=== PATIENT | female | born 1960 | race Caucasian/White ===

== ENCOUNTER 2020-03-13 07:48 | Outpatient (REF) | payer OTHER, SELFPAY ==
--- NOTE | 2020-03-13 08:04 | MM_ITS ---
EXAMINATION: MM SCREENING DIGITAL BREAST TOMOSYNTHESIS, LEFT CLINICAL INFORMATION: Right mastectomy for breast cancer 2013. Left breast augmentation 07/07/2014. Due for yearly exam. Screening. Asymptomatic. COMPARISON: Mammography: 08/12/2018, 07/24/2017, 07/09/2016 TECHNIQUE: Digital mammography is performed in craniocaudal and mediolateral oblique views along with computer-aided detection (CAD). Digital breast tomosynthesis is performed in implant-displaced craniocaudal and implant-displaced mediolateral oblique views along with computer-aided detection (CAD). Synthesized 2D images are generated from the tomosynthesis. FINDINGS: There are scattered areas of fibroglandular density (ACR BI-RADS breast composition Category b). There are no significant masses, abnormal calcifications, or other abnormalities. There is an implant with smooth contours. The axilla and skin contours are unremarkable. No significant changes. MM/MM tomosynthesis screen imp LT IMPRESSION: No mammographic evidence of malignancy. ASSESSMENT: BI-RADS 1: Negative RECOMMENDATION: Routine annual mammography screening. This patient's information was entered into a reminder system with a target due date for their next mammogram.
== END 2020-03-13 07:49 | disposition home or self-care (01) ==
LOC: HO.MAMMO 07:48
PROVIDERS: PCP Nurse Practitioner Family; Visit Provider Nurse Practitioner Family
DX: Z12.31 Encounter for screening mammogram for malignant neoplasm of breast (principal)
CPT/HCPCS: 77067

== ENCOUNTER 2020-06-01 06:44 | Outpatient (REF) | payer OTHER, SELFPAY ==
[2020-06-01 12:12] LABS: Alanine Aminotransferase 11 U/L (0-31); Albumin Level 4.4 g/dL (3.5-5.0); Alkaline Phosphatase 49 U/L (39-117); Anion Gap 15 (12-20); Aspartate Amino Transferase 12 U/L (5-31); Bilirubin Total 0.6 mg/dL (0.0-1.0); Blood Urea Nitrogen 20 mg/dL (9-16); Calcium 9.2 mg/dL (8.4-10.2); Carbon Dioxide 28 mmol/L (22-29); Chloride 105 mmol/L (96-108); Cholesterol 175 mg/dL; Estimated Glomerular Filt Rate > 60; Glucose Fasting 91 mg/dL (60-99); HDL Cholesterol 56 mg/dL; LDL Cholesterol Calculated 107 mg/dl; Potassium 4.5 mmol/L (3.3-5.1); Sodium 143 mmol/L (135-145); TSH reflex Free T4 5.74 uIU/mL (0.32-4.0); Triglycerides 60 mg/dL
[2020-06-01 12:46] LABS: Free T4 (Free Thyroxine) 1.01 ng/dL (0.71-1.85)
== END 2020-06-01 06:45 | disposition home or self-care (01) ==
LOC: HO.HMGCLDS 06:44
PROVIDERS: PCP Nurse Practitioner Family; Visit Provider Nurse Practitioner Family
DX: Z00.00 Encounter for general adult medical examination without abnormal findings (principal)
CPT/HCPCS: 36415; 80053; 80061; 84439; 84443

== ENCOUNTER 2020-06-11 10:05 | Outpatient (REF) | payer OTHER, SELFPAY ==
[2020-06-11 12:10] LABS: TSH reflex Free T4 2.86 uIU/mL (0.32-4.0)
[2020-06-12 08:21] LABS: Thyroid Peroxidase Antibodies 5 IU/mL (<9)
== END 2020-06-11 10:06 | disposition home or self-care (01) ==
LOC: HO.HMGCLDS 10:05
PROVIDERS: PCP Nurse Practitioner Family; Visit Provider Nurse Practitioner Family
DX: R79.89 Other specified abnormal findings of blood chemistry (principal)
CPT/HCPCS: 36415; 84443; 86376

== ENCOUNTER 2021-03-26 08:58 | Outpatient (REF) | payer OTHER, SELFPAY ==
--- NOTE | ~2021-03-26 | MM_ITS ---
EXAMINATION: MM SCREENING DIGITAL BREAST TOMOSYNTHESIS, LEFT CLINICAL INFORMATION: Right mastectomy for breast cancer, 2013. Augmentation left breast 07/07/2014. Due for yearly. COMPARISON: Mammography: 03/13/2020, 08/12/2018, 07/24/2017 TECHNIQUE: Digital mammography is performed in craniocaudal and mediolateral oblique views along with computer-aided detection (CAD). Digital breast tomosynthesis is performed in implant-displaced craniocaudal and implant-displaced mediolateral oblique views along with computer-aided detection (CAD). Synthesized 2D images are generated from the tomosynthesis. FINDINGS: There are scattered areas of fibroglandular density (ACR BI-RADS breast composition Category b). There is no significant mass or architectural abnormality. No developing density. No abnormal calcifications. The skin contours are smooth. Left implant contours are smooth and similar to prior studies. No significant changes. MM/MM tomosynthesis screen imp LT IMPRESSION: No mammographic evidence of malignancy. ASSESSMENT: BI-RADS 1: Negative RECOMMENDATION: Routine annual mammography screening. This patient's information was entered into a reminder system with a target due date for their next mammogram.
== END 2021-03-26 08:59 | disposition home or self-care (01) ==
LOC: HO.MAMMO 08:58
PROVIDERS: Visit Provider Nurse Practitioner Family
DX: Z12.31 Encounter for screening mammogram for malignant neoplasm of breast (principal); Z90.11 Acquired absence of right breast and nipple
CPT/HCPCS: 77067

== ENCOUNTER 2021-10-28 08:56 | Outpatient (REF) | payer OTHER, SELFPAY ==
[2021-10-28 11:16] LABS: MANUAL DIFF FLAG NO
[2021-10-28 11:26] LABS: Basophils Absolute Auto 0.1 X10*3/uL (0.0-0.2); Basophils Percent Auto 1.1 % (0-2); Eosinophils Absolute Auto 0.1 X10*3/uL (0.0-0.4); Eosinophils Percent Auto 1.7 % (0-4); Hemoglobin 12.8 g/dl (12.0-16.0); Imm Gran Abs Auto 0.01 X10*3/uL (0.00-0.03); Imm Gran Pct Auto 0.2 % (0.0-0.4); Lymphocytes Absolute Auto 0.9 X10*3/uL (1.2-4.9); Lymphocytes Percent Auto 18.5 % (20-40); Mean Corpuscular Hemoglobin 30.2 pg (27.0-33.0); Mean Corpuscular Volume 94.3 fL (80.0-98.0); Monocytes Absolute Auto 0.4 X10*3/uL (0.1-1.2); Monocytes Percent Auto 7.5 % (2-11); Neutrophils Absolute Auto 3.3 x10*3/uL (2.0-8.3); Platelet Count 192 X10*3/uL (160-400); Red Blood Count 4.24 X10*6/uL (4.20-5.50); Red Cell Distribution Width 12.8 % (11.0-16.0); White Blood Count 4.7 X10*3/uL (4.8-10.8)
[2021-10-28 11:31] LABS: Appearance Urine CLEAR; Color Urine YELLOW; Glucose Urine UA NEG (NEG); Leukocyte Esterase Urine 1+ (NEG); Nitrite Urine NEG (NEG); PH 5.5 (5.0-8.0); Specific Gravity - Urine 1.025 (1.005-1.025); UACC Culture Trigger YES; Urine Blood 1+ (NEG); Urine Ketones NEG (NEG); Urine Protein NEG (NEG-TRACE)
[2021-10-28 11:51] LABS: Alanine Aminotransferase 12 U/L (0-31); Albumin Level 4.5 g/dL (3.5-5.0); Alkaline Phosphatase 51 U/L (39-117); Anion Gap 11 (12-20); Aspartate Amino Transferase 14 U/L (5-31); Bilirubin Total 0.6 mg/dL (0.0-1.0); Blood Urea Nitrogen 19 mg/dL (9-16); Calcium 9.3 mg/dL (8.4-10.2); Carbon Dioxide 27 mmol/L (22-29); Chloride 105 mmol/L (96-108); Cholesterol 176 mg/dL; Estimated Glomerular Filt Rate > 60; Glucose Fasting 87 mg/dL (60-99); HDL Cholesterol 58 mg/dL; LDL Cholesterol Calculated 110 mg/dl; Potassium 4.1 mmol/L (3.3-5.1); Sodium 139 mmol/L (135-145); Total Protein 7.1 g/dL (6.5-8.0); Triglycerides 43 mg/dL
[2021-10-28 11:52] LABS: Bacteria Urine 3+ /LPF; Squamous Epithelial Cell Urine 2+ /LPF
[2021-10-28 11:53] LABS: RBC Urine 0-2 /HPF (0)
[2021-10-28 12:01] LABS: TSH reflex Free T4 2.76 uIU/mL (0.32-4.0); Vitamin D 25-OH Total 31.2 ng/mL (>30)
== END 2021-10-28 08:57 | disposition home or self-care (01) ==
LOC: HO.HMGCLDS 08:56
PROVIDERS: Visit Provider Nurse Practitioner Family
DX: Z00.00 Encounter for general adult medical examination without abnormal findings (principal); Z78.0 Asymptomatic menopausal state
CPT/HCPCS: 36415; 80053; 80061; 81001; 82306; 84443; 85025; 87086

== ENCOUNTER 2022-03-31 15:37 | Outpatient (REF) | payer OTHER, SELFPAY ==
--- NOTE | ~2022-03-31 | MM_ITS ---
EXAMINATION: MM SCREENING DIGITAL BREAST TOMOSYNTHESIS, LEFT CLINICAL INFORMATION: Right mastectomy for breast cancer, 2013. Left breast augmentation 07/07/2014. Due for yearly. COMPARISON: Mammography: 03/26/2021, 03/13/2020, 08/12/2018 TECHNIQUE: Digital mammography is performed in craniocaudal and mediolateral oblique views along with computer-aided detection (CAD). Digital breast tomosynthesis is performed in implant-displaced craniocaudal and implant-displaced mediolateral oblique views along with computer-aided detection (CAD). Synthesized 2D images are generated from the tomosynthesis. FINDINGS: There are scattered areas of fibroglandular density (ACR BI-RADS breast composition Category b). There is fine fibronodular parenchymal pattern bordering on heterogeneously dense. Parenchymal pattern is similar to prior studies. There is no developing density or interval mass or architectural abnormality. There are no abnormal calcifications. Implant contours are smooth and similar to prior study. The axilla and skin contours are unremarkable. No significant changes. MM/MM tomosynthesis screen imp LT IMPRESSION: No mammographic evidence of malignancy. ASSESSMENT: BI-RADS 1: Negative RECOMMENDATION: Routine annual mammography screening. This patient's information was entered into a reminder system with a target due date for their next mammogram.
== END 2022-03-31 15:38 | disposition home or self-care (01) ==
LOC: HO.MAMMO 15:37
PROVIDERS: PCP Nurse Practitioner Family; Visit Provider Nurse Practitioner Family
DX: Z12.31 Encounter for screening mammogram for malignant neoplasm of breast (principal)
CPT/HCPCS: 77067

== ENCOUNTER 2022-10-29 10:27 | Outpatient (AMB) | payer OTHER, SELFPAY ==
--- NOTE | 2022-10-29 10:36 | MHC.PC.OV ---
Vital Signs 10/29/22 10:37 Height 5 ft 5 in Weight 127 lb 2 oz BMI 21.2 BP 102/70 Blood Pressure Location Lt brachial Position Sitting Pulse 89 Pulse Source Pulse Oximeter Pulse Oximetry (%) 100 Oxygen Delivery Method Room Air Intake Visit Reasons: annual pe Allergies Sulfa (Sulfonamide Antibiotics) [SULFA (SULFONAMIDE ANTIBIOTICS)] Allergy (Intermediate, Verified 10/29/22 12:19) RASH opioids Allergy (Unknown, Uncoded 10/29/22 12:19) unknown Medication List - Last Reconciled 10/29/22 by SPRING Kersn atorvastatin 10 mg PO DAILY 90 days ezetimibe 10 mg PO DAILY lorazepam 0.5 mg PO DAILY PRN 30 days omeprazole 20 mg PO DAILY Tobacco use date assessed: 10/29/22 Dental Screening Dental Screen Date: 10/29/22 Did you have a dental visit in the last 12 months?: Yes Did you have a dental problem in the last 6 months where you did not have access to dental care?: No Was dental information given to patient?: Patient has dentist HPI annual pe HPI Details Pt is here for a PE. Will order labs. Cologuard is up to date. Mammo is up to date. Has a certified medicine aide. Pt reports increased anxiety. She reports that this makes her more irritable. Will start buspirone 5mg bid. Denies any SI and HI. PFSH Surgical History History of breast reconstruction History of cone biopsy of cervix History of lymph node excision History of mastectomy, total Family History Father Colon cancer Fall Substance use disorder Mother Arthritis Dementia Mental health disorder Brother Substance use disorder Paternal Uncle Substance use disorder Paternal Grandfather Substance use disorder Social History Housing: House Patient Tobacco Use Status: Never used Tobacco e-Cigarette/Vaping Use: Never Used Second Hand Smoke Exposure: No service: No Current occupational status: disabled Cognitive needs: No Hearing needs: No Vision needs: No Questionnaire Thrive Questionnaire Date Thrive assessed: 04/28/22 I am a: Patient What is your living situation today?: I have a steady place to live Within the past 12 months, did the food you bought not last and you didn't have the money to get more?: Never true Within the past 12 months, did you worry whether your food would run out before you got money to buy more?: Never true Please select the resources that you would like help with: Job search/training AUDIT C Alcohol Use Questionnaire (AUDIT-C) 1. How often do you have a drink containing alcohol?: 2-4 times a month 2. How many drinks containing alcohol do you have on a typical day when you are drinking?: 1 or 2 3. How often do you have six or more drinks on one occasion?: Never Total Score: 2 FERMIN-7 AMB Questionnaire FERMIN-7 Date FERMIN - 7 assessed: 04/28/22 Feeling nervous, anxious, or on edge: 3 = Nearly every day Not being able to stop or control worryin = More than half the days Worrying too much about different things: 2 = More than half the days Trouble relaxin = More than half the days Being so restless that it is hard to sit still: 1 = Several days Becoming easily annoyed or irritable: 3 = Nearly every day Feeling afraid as if something awful might happen: 2 = More than half the days Total FERMIN-7 score (0-4 normal; 5-9 mild; 10-14 moderate; 15-21 severe): 15 Source: Developed by Drs. Mikey Camarena, Kalyn Espinal, Brenton Albarado and colleagues, with an educational chastity from [employer]. Review of Systems Const Denies chills and Denies fever(s) Eyes Denies blurry vision ENT Denies vertigo, Denies dizziness and Denies sore throat Card Denies chest pain at rest, Denies chest pain with activity, Denies diaphoresis, Denies dyspnea and Denies dyspnea on exertion Resp Denies cough, Denies dyspnea, Denies dyspnea on exertion and Denies wheezing GI Denies abdominal pain, Denies melena, Denies hematochezia, Denies constipation, Denies diarrhea and Denies loose stools Denies hematuria Musc Denies numbness and Denies tingling Skin/Breast Denies lesions Neuro Denies vertigo, Denies dizziness, Denies numbness and Denies tingling Psych Reports anxiety, Denies depression, Denies homicidal ideation, Denies suicidal ideation and Denies other (substance abuse) Aller/Immun Denies wheezing Physical exam (Primary Care) Vital Signs: Last Vital Signs Pulse 89 10/29/22 10:37 BP 102/70 10/29/22 10:37 Pulse Ox 100 10/29/22 10:37 Oxygen Delivery Method Room Air 10/29/22 10:37 BMI result Body Mass Index 21.2 Tobacco/Smoking Status: Tobacco use Status Tobacco use date assessed 10/29/22 10/29/22 10:42 Patient Tobacco Use Status Never used Tobacco 10/29/22 10:42 e-Cigarette/Vaping Use Never Used 10/29/22 10:42 Thrive Assessment: Date of Thrive Assessment Date Thrive assessed 04/28/22 10/29/22 10:42 Const General: cooperative Nutritional Appearance: well nourished Orientation/consciousness: patient oriented x3 HENMT Head: Yes normal to inspection, Yes normocephalic and Yes atraumatic Ears: TM's normal bilaterally Eyes General: appearance normal, both eyes and all related structures Alignment and Position: alignment normal and position normal Neck Neck: Yes normal visual inspection and Yes no lymphadenopathy Thyroid: Thyroid normal Resp Effort & Inspection: normal respiratory effort Auscultation: clear to auscultation bilaterally Cardio Rate: regular rate Rhythm: regular rhythm Heart sounds: S1 normal heart sound present, S2 normal heart sound present and no murmurs GI Palpation (GI): Soft to palpation and nontender Auscultation: normal bowel sounds Skin Rashes: no rashes Neuro General: patient oriented x3, moves all extremities, no focal motor deficits and deep tendon reflexes 2+ bilaterally Romberg Test: Negative Psych Appearance: grossly normal Mental Status: mental status grossly normal Speech and movement: Normal speech and movement present Affect: normal affect Attitude: cooperative Thought process: Normal thought process present Thought content: Normal thought content present Insight: Good insight present (Psych) Judgement: Good judgement present (Psych) Assessment and Plan Assessment & Plan (1) Physical exam: Code(s): Z00.00 - Encounter for general adult medical examination without abnormal findings (2) Postmenopausal: Code(s): Z78.0 - Asymptomatic menopausal state Plan The patient agreed to the use of a director biomedical engineering for this encounter. Scribed for MARY LOU MeloP-BC by Esme Ang, director biomedical engineering, on 10/29/2022 at 10:55 EST. Orders: Orders Comprehensive [place]. Panel Fast Today Z00.00 - Encounter for general adult medical examination without abnormal findings Lipid Panel Today Z00.00 - Encounter for general adult medical examination without abnormal findings TSH reflex Free T4 Today Z00.00 - Encounter for general adult medical examination without abnormal findings Complete Blood Count Auto Diff Today Z00.00 - Encounter for general adult medical examination without abnormal findings UA CC w/rflx Micro + Cult Today Z00.00 - Encounter for general adult medical examination without abnormal findings Vitamin D 25-OH Total Today Z78.0 - Asymptomatic menopausal state XR DEXA axial skeleton Today Z78.0 - Asymptomatic menopausal state Medications: New buspirone 5 mg PO BID 60 tabs 2RF 30 days Coding Level of Care Code Est Pt Prev Care 40-64y(14482) Diagnoses Physical exam Z00.00 Postmenopausal Z78.0
[2022-10-29 10:37] VITALS: BP 102/70; PULSE 89; O2SAT 100; BMI 21.2
== END 2022-10-29 11:35 | disposition home or self-care (01) ==
PROVIDERS: Visit Provider Nurse Practitioner Family
DX: Z00.00 Encounter for general adult medical examination without abnormal findings (principal); Z78.0 Asymptomatic menopausal state
CPT/HCPCS: 99396

== ENCOUNTER 2022-11-13 13:52 | Outpatient (REF) | payer OTHER, SELFPAY ==
--- NOTE | ~2022-11-13 | MM_ITS ---
EXAMINATION: BONE DENSITOMETRY CLINICAL INDICATION: Asymptomatic menopausal state. COMPARISON: This is the patient's baseline examination. TECHNIQUE: Using a [employer] DXA System (software version: 13.1) manufactured by [employer], dual-energy x-ray absorptiometry was performed of the lumbar spine and left hip. The images are of good technical quality. Summary results are attached. FINDINGS: LEFT FEMUR, NECK: BMD 0.593 g/cm2, Z-score -1.8, T-score -3.2, osteoporosis. LEFT FEMUR, TOTAL: BMD 0.640 g/cm2, Z-score -1.8, T-score -2.9, osteoporosis. AP SPINE L1-L4: BMD 0.853 g/cm2, Z-score -1.2, T-score -2.7, osteoporosis. IDENTIFIED RISK FACTORS: Height loss, menopause, rheumatoid arthritis. HISTORY OF FRACTURE: None listed. MEDICATIONS: None listed. MM/XR DEXA axial skeleton IMPRESSION: 1. DIAGNOSIS: Osteoporosis based on the lowest T-score value of -3.2 in the femoral neck applying World Health Organization criteria. 2. 10-YEAR FRACTURE RISK PREDICTION, FRAX: According to the guidelines, FRAX calculation should only be performed on patients in the osteopenia bone density category. Therefore, FRAX was not performed on this patient. 3. Treatment Recommendations: NOF guidelines recommend consideration for treatment in postmenopausal women and men age 50 and older presenting with the following: -A hip or vertebral (clinical or morphometric) fracture. -T-score less than or equal to -2.5 at the femoral neck or spine after appropriate evaluation to exclude secondary causes. -Low bone mass at the hip or spine and a 10-year fracture probability by FRAX of greater than or equal to 3% for hip fracture or greater than or equal to 20% for major osteoporotic fracture based on the [place] adapted WHO algorithm. 4. Other Recommendations: All treatment decisions require clinical judgment and consideration of individual patient factors, including patient preferences, comorbidities, previous drug use, risk factors not captured in the FRAX model (e.g. frailty, falls, vitamin D deficiency, increased bone turnover, interval significant decline in bone density) and possible under or overestimation of fracture risk by FRAX. Additional medical evaluation for secondary cause of low bone mineral density may be appropriate. FUTURE SCAN RECOMMENDATION: People with diagnosed cases of osteoporosis or at high risk for fracture should have regular bone mineral density tests. For patients eligible for Medicare, routine testing is allowed once every 2 years. The testing frequency can be increased to one year for patients who have rapidly progressing disease, those who are receiving or discontinuing medical therapy to restore bone mass, or have additional risk factors.
== END 2022-11-13 13:53 | disposition home or self-care (01) ==
LOC: HO.MAMMO 13:52
PROVIDERS: PCP Nurse Practitioner Family; Visit Provider Nurse Practitioner Family
DX: Z13.820 Encounter for screening for osteoporosis (principal); Z78.0 Asymptomatic menopausal state
CPT/HCPCS: 77080

== ENCOUNTER → 2022-11-13 14:00 | Outpatient (BNV) | payer OTHER, SELFPAY | PROVIDERS: PCP Nurse Practitioner Family; Visit Provider Radiology Diagnostic Radiology | DX: Z78.0 Asymptomatic menopausal state (principal) | CPT/HCPCS: 77080 ==

== ENCOUNTER 2023-04-02 15:20 | Outpatient (REF) | payer OTHER, SELFPAY ==
--- NOTE | ~2023-04-02 | MM_ITS ---
EXAMINATION: MM SCREENING DIGITAL BREAST TOMOSYNTHESIS, LEFT CLINICAL INFORMATION: Screening. Asymptomatic. The patient is status post right mastectomy. COMPARISON: Mammography: This study is compared with prior exams dating back to 2018. TECHNIQUE: Digital mammography is performed in craniocaudal and mediolateral oblique views along with computer-aided detection (CAD). Digital breast tomosynthesis is performed in implant-displaced craniocaudal and implant-displaced mediolateral oblique views along with computer-aided detection (CAD). Synthesized 2D images are generated from the tomosynthesis. FINDINGS: There are scattered areas of fibroglandular density (ACR BI-RADS breast composition Category b). There is a mammographically intact, retropectoral silicone breast implant. There are no significant masses, abnormal calcifications, or other abnormalities. MM/MM tomosynthesis screen imp LT IMPRESSION: There are no significant changes from prior study. ASSESSMENT: BI-RADS BI-RADS 1 - Negative RECOMMENDATION: Routine annual mammography screening. 1 year F/U This patient's information was entered into a reminder system with a target due date for their next mammogram.
== END 2023-04-02 15:21 | disposition home or self-care (01) ==
LOC: HO.MAMMO 15:20
PROVIDERS: PCP Nurse Practitioner Family; Visit Provider Nurse Practitioner Family
DX: Z12.31 Encounter for screening mammogram for malignant neoplasm of breast (principal)
CPT/HCPCS: 77067

== ENCOUNTER → 2023-04-02 15:30 | Outpatient (BNV) | payer OTHER, SELFPAY | PROVIDERS: PCP Nurse Practitioner Family; Visit Provider Radiology Diagnostic Radiology | DX: Z12.31 Encounter for screening mammogram for malignant neoplasm of breast (principal) | CPT/HCPCS: 77063; 77067 ==

== ENCOUNTER 2023-05-14 06:42 | Outpatient (REF) | payer OTHER, SELFPAY ==
[2023-05-14 07:05] LABS: MANUAL DIFF FLAG NO
[2023-05-14 08:01] LABS: Basophils Absolute Auto 0.1 X10*3/uL (0.0-0.2); Basophils Percent Auto 1.3 % (0-2); Eosinophils Absolute Auto 0.1 X10*3/uL (0.0-0.4); Eosinophils Percent Auto 2.2 % (0-4); Hematocrit 40.4 % (37.0-47.0); Hemoglobin 13.1 g/dl (12.0-16.0); Imm Gran Abs Auto 0.01 X10*3/uL (0.00-0.03); Imm Gran Pct Auto 0.2 % (0.0-0.4); Lymphocytes Absolute Auto 0.9 X10*3/uL (1.2-4.9); Lymphocytes Percent Auto 20.4 % (20-40); Mean Corpuscular HGB Conc 32.4 g/dl (31.0-35.0); Mean Corpuscular Hemoglobin 30.1 pg (27.0-33.0); Mean Corpuscular Volume 92.9 fL (80.0-98.0); Mean Platelet Volume 10.5 fL (9.4-12.3); Monocytes Absolute Auto 0.3 X10*3/uL (0.1-1.2); Neutrophils Absolute Auto 3.1 x10*3/uL (2.0-8.3); Neutrophils Percent Auto 68.9 % (45-73); Platelet Count 194 X10*3/uL (160-400); Red Blood Count 4.35 X10*6/uL (4.20-5.50); Red Cell Distribution Width 12.8 % (11.0-16.0); White Blood Count 4.5 X10*3/uL (4.8-10.8)
[2023-05-14 08:27] LABS: Parathyroid Hormone Intact 76.5 pg/mL (8.7-77.1)
[2023-05-14 08:37] LABS: Alanine Aminotransferase 13 U/L (0-31); Albumin Level 4.2 g/dL (3.5-5.0); Alkaline Phosphatase 40 U/L (39-117); Anion Gap 12 (12-20); Aspartate Amino Transferase 16 U/L (5-31); Bilirubin Total 0.6 mg/dL (0.0-1.0); Blood Urea Nitrogen 18 mg/dL (9-16); Calcium 9.4 mg/dL (8.4-10.2); Carbon Dioxide 28 mmol/L (22-29); Chloride 104 mmol/L (96-108); Estimated Glomerular Filt Rate > 60; Glucose Random 92 mg/dL (60-115); Potassium 3.9 mmol/L (3.3-5.1); Sodium 140 mmol/L (135-145); Total Protein 7.1 g/dL (6.5-8.0)
[2023-05-14 08:42] LABS: Creatinine, mg/dL 69.18
[2023-05-14 08:54] LABS: Thyroid Stimulating Hormone 3.64 uIU/mL (0.32-4.0)
[2023-05-14 11:22] LABS: Total Volume 24 Hour Urine 1500 mL
[2023-05-16 18:12] LABS: Calcium, 24 Hr Urine 75 mg/24 h; Calcium/Creatinine Ratio 68 mg/g creat (30-275)
[2023-05-18 12:09] LABS: Prot Elec - Albumin 4.3 g/dL (3.8-4.8); Prot Elec - Alpha1 0.3 g/dL (0.2-0.3); Prot Elec - Alpha2 0.7 g/dL (0.5-0.9); Prot Elec - Beta 1 0.4 g/dL (0.4-0.6); Prot Elec - Beta 2 0.3 g/dL (0.2-0.5); Prot Elec - Total Protein 6.8 g/dL (6.1-8.1)
== END 2023-05-14 06:43 | disposition home or self-care (01) ==
LOC: HO.LAB 06:42
PROVIDERS: PCP Nurse Practitioner Family; Visit Provider Internal Medicine Endocrinology, Diabetes & Metabolism
DX: M81.8 Other osteoporosis without current pathological fracture (principal)
CPT/HCPCS: 36415; 80053; 82306; 82340; 82570; 83970; 84165; 84443; 85025

== ENCOUNTER 2023-05-18 07:42 | Outpatient (REF) | payer OTHER, SELFPAY ==
[2023-05-25 23:49] LABS: Collagen Type I C-Telopeptide 209 pg/mL (see note)
== END 2023-05-18 07:43 | disposition home or self-care (01) ==
LOC: HO.LAB 07:42
PROVIDERS: PCP Nurse Practitioner Family; Visit Provider Internal Medicine Endocrinology, Diabetes & Metabolism
DX: M81.8 Other osteoporosis without current pathological fracture (principal)
CPT/HCPCS: 36415; 82523

== ENCOUNTER 2023-05-25 08:00 | Outpatient (RCR) | payer OTHER, SELFPAY ==
[2023-04-29 07:57] VITALS: BP 127/74; PULSE 75
--- NOTE | 2023-04-29 09:09 | MHC.PT.EP ---
[facility] [place] Office [place] Office [place] Office [address] Polanco [address] [phone] F: [phone] F: [phone] F: [phone] F: [phone] Physical Therapy Plan of Care Date of Evaluation: 04/29/23 Date of Surgery: NA Diagnosis: Dizziness and giddiness Vertigo Assessment: Essence is a 63 year old female who is referred to PT for dizziness and giddiness . She reports of having symptoms of vertigo intermittently for the last 10 years. Her symptoms initially start of as an [place] and then progress to vertigo. In addition to this she has days when she is very dizzy with rolling in bed, supine <> sit and lying down. She describes her symptoms as room spinning and they last for a few seconds. On PT examination she reports of having 3/10 pain on L side of her neck, presented with decreased L SB and L rotation, intact smooth pursuit, intact saccades, visual tracking, negative head thrust and VBI. She was positive for BPPV in L [place]. Unable to assess other sides due to nausea. She lives with her and is independent with all ADLS. 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 She would benefit from skilled PT to address the aforementioned impairments and improve tolerance to functional activities. Frequency and Duration: The patient will be seen 2/week for 4 weeks. Short Term Goals: [employer] Goals: Patient to be educated on symptoms and indications to return to therapy when needed min 4 weeks. Pt will be negative for nystagmus or reports of vertigo in all diagnostic positions bilaterally to resolution of BPPV in 4 weeks. Patient to be able to functionally move in all planes and directions without provocation of dizziness to show return to PLOF in 4 weeks Treatment Plan: Modalities to reduce pain, spasms and effusion. Manual therapy to restore motion and function. Therapeutic exercise to improve strength and flexibility. Neuromuscular re-education for posture and balance. Therapeutic activities to return to functional activities of daily living. Electronically signed by: Annemarie Kaufman PT DPT Please sign and return to therapist. Thank you for your referral.
--- NOTE | 2023-06-24 10:53 | MHC.PT.DC ---
[facility] [place] Office [place] Office [place] Office [address] Polanco [address] [phone] F: [phone] F: [phone] F: [phone] F: [phone] Physical Therapy Discharge Report Diagnosis: Dizziness and giddiness Vertigo Date of Surgery: NA Date of Evaluation: 04/29/23 Date of Discharge: 06/24/23 Treatments to Date: 9 Cancellations to Date: 0 No Shows to Date: 0 Discharge Status: Achieved Goals Improved Function Independent with HEP Discharge Summary: Essence has not had any symptoms of vestibular dysfunction in over a month. She is therefore being d/c from PT. Electronically signed by: Annemarie Kaufman PT DPT Please sign and return to therapist. Thank you for your referral.
== END 2023-06-24 10:54 | disposition home or self-care (01) ==
LOC: HO.PT 08:00
PROVIDERS: PCP Nurse Practitioner Family; Visit Provider Nurse Practitioner Family
DX: R42 Dizziness and giddiness (principal)
CPT/HCPCS: 95992; 97110; 97112; 97140; 97161

== ENCOUNTER 2023-06-04 06:29 | Outpatient (REF) | payer OTHER, SELFPAY ==
[2023-06-04 06:38] LABS: MANUAL DIFF FLAG NO
[2023-06-04 07:13] LABS: Basophils Absolute Auto 0.1 X10*3/uL (0.0-0.2); Basophils Percent Auto 1.1 % (0-2); Eosinophils Absolute Auto 0.1 X10*3/uL (0.0-0.4); Eosinophils Percent Auto 2.7 % (0-4); Hematocrit 38.9 % (37.0-47.0); Hemoglobin 12.8 g/dl (12.0-16.0); Imm Gran Abs Auto 0.01 X10*3/uL (0.00-0.03); Imm Gran Pct Auto 0.2 % (0.0-0.4); Lymphocytes Absolute Auto 1.1 X10*3/uL (1.2-4.9); Lymphocytes Percent Auto 24.9 % (20-40); Mean Corpuscular HGB Conc 32.9 g/dl (31.0-35.0); Mean Corpuscular Hemoglobin 30.8 pg (27.0-33.0); Mean Corpuscular Volume 93.7 fL (80.0-98.0); Mean Platelet Volume 10.3 fL (9.4-12.3); Monocytes Absolute Auto 0.4 X10*3/uL (0.1-1.2); Monocytes Percent Auto 8.2 % (2-11); Neutrophils Absolute Auto 2.8 x10*3/uL (2.0-8.3); Neutrophils Percent Auto 62.9 % (45-73); Platelet Count 183 X10*3/uL (160-400); Red Blood Count 4.15 X10*6/uL (4.20-5.50); Red Cell Distribution Width 12.8 % (11.0-16.0); White Blood Count 4.5 X10*3/uL (4.8-10.8)
[2023-06-04 07:45] LABS: Alanine Aminotransferase 12 U/L (0-31); Albumin Level 4.1 g/dL (3.5-5.0); Alkaline Phosphatase 38 U/L (39-117); Anion Gap 8 (12-20); Aspartate Amino Transferase 14 U/L (5-31); Bilirubin Total 0.6 mg/dL (0.0-1.0); Blood Urea Nitrogen 23 mg/dL (9-16); Calcium 9.2 mg/dL (8.4-10.2); Carbon Dioxide 30 mmol/L (22-29); Chloride 106 mmol/L (96-108); Cholesterol 171 mg/dL (<200); Estimated Glomerular Filt Rate > 60; Glucose Fasting 88 mg/dL (60-99); HDL Cholesterol 62 mg/dL (>40); LDL Cholesterol Calculated 99 mg/dL (<100); Sodium 140 mmol/L (135-145); Total Protein 6.8 g/dL (6.5-8.0); Triglycerides 50 mg/dL (<150)
[2023-06-04 07:49] LABS: TSH reflex Free T4 4.38 uIU/mL (0.32-4.0); Vitamin D 25-OH Total 20.9 ng/mL (>30)
[2023-06-04 08:32] LABS: Appearance Urine Clear; Color Urine Yellow; Glucose Urine UA Negative (Negative); Leukocyte Esterase Urine Moderate (2+) (Negative); Nitrite Urine Negative (Negative); PH 5.5 (5.0-9.0); UMIC TRIGGER UACC YES; Urine Blood Trace (Negative); Urine Ketones Negative (Negative); Urine Protein Negative (Neg-Trace)
[2023-06-04 08:45] LABS: Bacteria Urine None Seen (None Seen); Hyaline Casts Urine 0-2 /LPF (0-2); RBC Urine 0-2 /HPF (0-2); Squamous Epithelial Cell Urine 0-2 /HPF (0-2); UACC Culture Trigger YES
[2023-06-04 08:59] LABS: Free T4 (Free Thyroxine) 0.97 ng/dL (0.71-1.85)
== END 2023-06-04 06:30 | disposition home or self-care (01) ==
LOC: HO.LAB 06:29
PROVIDERS: PCP Nurse Practitioner Family; Visit Provider Nurse Practitioner Family
DX: Z00.00 Encounter for general adult medical examination without abnormal findings (principal); Z78.0 Asymptomatic menopausal state
CPT/HCPCS: 36415; 80053; 80061; 81001; 82306; 84439; 84443; 85025; 87086

== ENCOUNTER 2023-07-03 09:00 | Outpatient (RCR) | payer OTHER, SELFPAY ==
[2023-06-30 15:04] VITALS: BP 116/74; PULSE 86
--- NOTE | 2023-06-30 15:53 | MHC.PT.EP ---
[facility] [place] Office [place] Office [place] Office [address] Randal Polanco [address] [phone] F: [phone] F: [phone] F: [phone] F: [phone] Physical Therapy Plan of Care Date of Evaluation: 06/30/23 Date of Surgery: NA Diagnosis: Dizziness and giddiness Assessment: Essence is a 63 year old female who is referred to PT for dizziness and giddiness . Essence was in PT for vertigo 2 months back and was d/c from PT about 1 month back. However about 2 weeks after d/c her symptoms of vertigo returned. She trialed waiting it out however it did not get better. She is therefore back to PT. On PT examination she presented with intact saccades, smooth pursuit, visual tracking, negative head thrust and VBI. She reported of having dizziness in L [place] but no nystagmus noted. She was negative for BPPV in R [place] and B roll test. 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 She lives with her and is independent with all ADLS however does them slowly and carefully. She would benefit from skilled PT to address the aforementioned impairments and improve tolerance to functional activities. Frequency and Duration: The patient will be seen 2/week for 4 weeks Short Term Goals: Half-Way Goals: Patient to be educated on symptoms and indications to return to therapy when needed min 4 weeks. Pt will be negative for nystagmus or reports of vertigo in all diagnostic positions bilaterally to resolution of BPPV in 4 weeks. Patient to be able to functionally move in all planes and directions without provocation of dizziness to show return to PLOF in 4 weeks Treatment Plan: Modalities to reduce pain, spasms and effusion. Manual therapy to restore motion and function. Therapeutic exercise to improve strength and flexibility. Neuromuscular re-education for posture and balance. Therapeutic activities to return to functional activities of daily living. Electronically signed by: Annemarie Kaufman PT DPT Please sign and return to therapist. Thank you for your referral.
--- NOTE | 2023-12-01 08:50 | MHC.PT.DC ---
[facility] [place] [facility] [place] [facility] [place] [facility] [address] [phone] F: [phone] F: [phone] F: [phone] F: [phone] Physical Therapy Discharge Report Diagnosis: Dizziness and giddiness Date of Surgery: NA Date of Evaluation: 06/30/23 Date of Discharge: 12/01/23 Treatments to Date: 2 Cancellations to Date: 0 No Shows to Date: Discharge Status: Achieved Goals Discharge Summary: Essence has had no symptoms of BPPV in over a month. She is therefore being d/c from PT. Electronically signed by: Annemarie Kaufman PT DPT Please sign and return to therapist. Thank you for your referral.
== END 2023-12-01 08:51 | disposition home or self-care (01) ==
LOC: HO.PT 09:00
PROVIDERS: PCP Nurse Practitioner Family; Visit Provider Nurse Practitioner Family
DX: R42 Dizziness and giddiness (principal)
CPT/HCPCS: 95992; 97112; 97161

== ENCOUNTER 2023-07-22 08:08 | Outpatient (REF) | payer OTHER, SELFPAY ==
[2023-07-22 10:01] LABS: TSH reflex Free T4 2.65 uIU/mL (0.32-4.0)
[2023-07-23 18:03] LABS: Thyroid Peroxidase Antibodies 4 IU/mL (<9)
== END 2023-07-22 08:09 | disposition home or self-care (01) ==
LOC: HO.LAB 08:08
PROVIDERS: Visit Provider Nurse Practitioner Family
DX: R79.89 Other specified abnormal findings of blood chemistry (principal)
CPT/HCPCS: 36415; 84443; 86376

== ENCOUNTER 2023-11-18 16:19 | Outpatient (AMB) | payer OTHER, SELFPAY ==
--- NOTE | 2023-11-18 16:34 | A.OFFPC_ITS ---
Vital Signs 11/18/23 16:35 Weight 130 lb BP 112/68 Blood Pressure Location Lt brachial Position Sitting Pulse 80 Pulse Source Pulse Oximeter Pulse Oximetry (%) 96 Oxygen Delivery Method Room Air Intake Visit Reasons: Physical Exam- NEEDS PHQ9 - see comments Intake Note: Patient here for physical exam. pt would like to talk abou statins Allergies Sulfa (Sulfonamide Antibiotics) [SULFA (SULFONAMIDE ANTIBIOTICS)] Allergy (Intermediate, Verified 11/18/23 17:39) RASH opioids Allergy (Unknown, Uncoded 11/18/23 17:39) unknown Medication List - Last Reconciled 11/18/23 by SPRING Kerns atorvastatin 10 mg PO DAILY 90 days calcium carbonate-vitamin D3 600 mg-12.5 mcg (500 unit) (Calcium 600 with Vitamin D3) 1 cap PO BID 90 days cholecalciferol (vitamin D3) 50 mcg PO DAILY ezetimibe 10 mg PO DAILY lorazepam 0.5 mg PO DAILY PRN 30 days omeprazole 20 mg PO DAILY Tobacco use date assessed: 11/18/23 Dental Screening Dental Screen Date: 11/18/23 Did you have a dental visit in the last 12 months?: Yes Did you have a dental problem in the last 6 months where you did not have access to dental care?: No Was dental information given to patient?: Patient has dentist HPI Physical Exam- NEEDS PHQ9 - see comments HPI Details here for a PE. Pt will check with her insurance, make sure cologuard is covered...pt is due for a colon screen, does not want a colonoscopy. Pt reported her mammos/cervical screenings are up to date (has a hanger off). Osteoporosis: did not tolerate alendronate, referred to endo, did not like the med options. She remains on vitamin D and calcium. [facility] Surgical History History of cone biopsy of cervix History of lymph node excision History of mastectomy, total History of breast reconstruction Family History Father Colon cancer Fall Substance use disorder Mother Arthritis Dementia Mental health disorder Brother Substance use disorder Paternal Uncle Substance use disorder Paternal Grandfather Substance use disorder Social History Housing: House Patient Tobacco Use Status: Never used Tobacco e-Cigarette/Vaping Use: Never Used Second Hand Smoke Exposure: No service: No Current occupational status: disabled Cognitive needs: No Hearing needs: No Vision needs: No Questionnaire PHQ-9 Over the last 2 weeks, how often have you been bothered by any of the following problems? 20822 - PHQ-9 Billing: Patient declined-do not bill Source: Developed by Drs. Mikey Camarena, Kalyn Espinal, Brenton Albarado and colleagues, with an educational chastity from [employer]. Thrive Questionnaire Date Thrive assessed: 11/11/23 I am a: Patient What is your living situation today?: I have a steady place to live Within the past 12 months, did the food you bought not last and you didn't have the money to get more?: Sometimes True Within the past 12 months, did you worry whether your food would run out before you got money to buy more?: Sometimes True Do you have trouble paying for medicines?: No Do you have trouble getting transportation to medical appointments?: No Do you have trouble paying your heating and electricity bill?: No Do you have trouble taking care of your child, family member or friend?: No Do you have trouble with day-to-day activities such as bathing, preparing meals, shopping, managing finances, etc.?: No Are you currently unemployed and looking for a job?: No Are you interested in more education?: No Currently or been in a relationship where the following occur: No concerns reported THRIVE Score: 2 FERMIN-7 AMB Questionnaire FERMIN-7 Date FERMIN - 7 assessed: 04/28/22 Feeling nervous, anxious, or on edge: 1 = Several days Not being able to stop or control worryin = Several days Worrying too much about different things: 1 = Several days Trouble relaxin = Several days Being so restless that it is hard to sit still: 1 = Several days Becoming easily annoyed or irritable: 3 = Nearly every day Feeling afraid as if something awful might happen: 1 = Several days Total FERMIN-7 score (0-4 normal; 5-9 mild; 10-14 moderate; 15-21 severe): 9 Source: Developed by Drs. Mikey Camarena, Kalyn Espinal, Brenton Albarado and colleagues, with an educational chastity from [employer]. FERMIN-7 Assessment Billing FERMIN-7 Assessment Tool: FERMIN-7 Assessment 59086 Review of Systems Const Denies chills and Denies fever(s) Eyes Denies blurry vision ENT Denies vertigo, Denies dizziness and Denies sore throat Card Denies chest pain at rest, Denies chest pain with activity, Denies diaphoresis, Denies dyspnea and Denies dyspnea on exertion Resp Denies cough, Denies dyspnea, Denies dyspnea on exertion and Denies wheezing GI Denies abdominal pain, Denies melena, Denies hematochezia, Denies constipation, Denies diarrhea and Denies loose stools Denies hematuria Musc Denies numbness and Denies tingling Skin/Breast Denies lesions Neuro Denies vertigo, Denies dizziness, Denies numbness and Denies tingling Psych Denies anxiety, Denies depression, Denies homicidal ideation, Denies suicidal ideation and Denies other (substance abuse) Aller/Immun Denies wheezing Physical exam (Primary Care) Tobacco/Smoking Status: Tobacco use Status Tobacco use date assessed 10/29/22 10/29/22 10:42 Patient Tobacco Use Status Never used Tobacco 10/29/22 10:42 e-Cigarette/Vaping Use Never Used 10/29/22 10:42 Thrive Assessment: Date of Thrive Assessment Date Thrive assessed 11/11/23 11/11/23 13:46 Currently or been in a relationship where the following occur: No concerns reported Const General: cooperative Nutritional Appearance: well nourished Orientation/consciousness: patient oriented x3 HENMT Head: Yes normal to inspection, Yes normocephalic and Yes atraumatic Ears: TM normal on the right and TM normal on the left Eyes General: appearance normal, both eyes and all related structures Alignment and Position: alignment normal and position normal Neck Neck: Yes normal visual inspection and Yes no lymphadenopathy Resp Effort & Inspection: normal respiratory effort Auscultation: clear to auscultation bilaterally Cardio Rate: regular rate Rhythm: regular rhythm Heart sounds: S1 normal heart sound present, S2 normal heart sound present and no murmurs GI Palpation (GI): Soft to palpation and nontender Auscultation: normal bowel sounds Skin Rashes: no rashes Neuro General: patient oriented x3, moves all extremities, no focal motor deficits and deep tendon reflexes 2+ bilaterally Romberg Test: Negative Extrem Right lower extremity: no edema Left lower extremity: no edema Psych Affect: normal affect Attitude: cooperative Thought process: Normal thought process present Assessment and Plan Assessment & Plan (1) Encounter for routine adult physical exam with abnormal findings: Code(s): Z00. - Encounter for general adult medical examination with abnormal findings (2) Osteoporosis: Code(s): M81.0 - Age-related osteoporosis without current pathological fracture Plan: vitamin d and calcium Orders: Orders TSH reflex Free T4 Today Z00. - Encounter for general adult medical examination with abnormal findings Lipid Panel Today Z00. - Encounter for general adult medical examination with abnormal findings Vitamin D 25-OH Total Today M81.0 - Age-related osteoporosis without current pathological fracture Complete Blood Count Auto Diff Today Z00. - Encounter for general adult medical examination with abnormal findings Comprehensive Pana. Panel Fast Today Z00. - Encounter for general adult medical examination with abnormal findings UA CC w/rflx Micro + Cult Today Z00. - Encounter for general adult medical examination with abnormal findings Medications: Discontinued alendronate (Fosamax) Discontinued Reason: Doctor's Order 70 mg PO QWEEK 90 days 13 tabs 0RF Coding Level of Care Code Est Pt Prev Care 40-64y(74874) Diagnoses Encounter for routine adult physical exam with abnormal findings Z00. Osteoporosis M81.0 Additional Codes FERMIN-7 Assessment Billing - FERMIN-7 Assessment Tool: FERMIN-7 Assessment 51466 ([id number])
[2023-11-18 16:35] VITALS: BP 112/68; PULSE 80; O2SAT 96
== END 2023-11-18 17:41 | disposition home or self-care (01) ==
PROVIDERS: PCP Nurse Practitioner Family; Visit Provider Nurse Practitioner Family
DX: Z00.00 Encounter for general adult medical examination without abnormal findings (principal); M81.0 Age-related osteoporosis without current pathological fracture
CPT/HCPCS: 99396

== ENCOUNTER 2024-04-04 15:14 | Outpatient (REF) | payer OTHER, SELFPAY ==
--- NOTE | ~2024-04-04 | MM_ITS ---
EXAMINATION: MM SCREENING DIGITAL BREAST TOMOSYNTHESIS, LEFT CLINICAL INFORMATION: Screening mammogram. Status post right mastectomy. COMPARISON: Mammography: Comparison is made with available prior examinations. TECHNIQUE: Digital breast tomosynthesis is performed in both the craniocaudal and mediolateral oblique views along with computer-aided detection (CAD). Synthesized 2D images are generated from the tomosynthesis. FINDINGS: The breasts are heterogeneously dense, which may obscure small masses (ACR BI-RADS breast composition Category c). Left retropectoral implant is stable appearing. There are no significant masses, abnormal calcifications, or other abnormalities. MM/MM tomosynthesis screen imp LT IMPRESSION: There are no significant changes from prior study. ASSESSMENT: BI-RADS BI-RADS 2 - Benign Findings RECOMMENDATION: Routine annual mammography screening. 1 year F/U This patient's information was entered into a reminder system with a target due date for their next mammogram. Electronically signed by: Caty Hayes DO 04/14/2024 01:39 PM LOLLY
== END 2024-04-04 15:15 | disposition home or self-care (01) ==
LOC: HO.MAMMO 15:14
PROVIDERS: PCP Nurse Practitioner Family; Visit Provider Nurse Practitioner Family
DX: Z12.31 Encounter for screening mammogram for malignant neoplasm of breast (principal)
CPT/HCPCS: 77067

== ENCOUNTER → 2024-04-04 15:30 | Outpatient (BNV) | payer OTHER, SELFPAY | PROVIDERS: PCP Nurse Practitioner Family; Visit Provider Internal Medicine | DX: Z12.31 Encounter for screening mammogram for malignant neoplasm of breast (principal) | CPT/HCPCS: 77063; 77067 ==

== ENCOUNTER 2024-05-16 09:52 | Outpatient (AMB) | payer OTHER, SELFPAY ==
--- NOTE | 2024-05-16 09:55 | MHC.PC.OV ---
Vital Signs 05/16/24 09:56 Height 5 ft 5 in Weight 133 lb 8 oz BMI 22.2 BP 124/88 Blood Pressure Location Lt brachial Position Sitting Pulse 84 Pulse Source Pulse Oximeter Temp 98.1 F Temp Source Oral Pulse Oximetry (%) 99 Oxygen Delivery Method Room Air Intake Visit Reasons: 6 month follow up Allergies Sulfa (Sulfonamide Antibiotics) [SULFA (SULFONAMIDE ANTIBIOTICS)] Allergy (Intermediate, Verified 05/16/24 09:56) RASH opioids Allergy (Unknown, Uncoded 11/18/23 17:39) unknown Medication List - Last Reconciled 05/16/24 by Francisco Mendez, PE MANAGER- atorvastatin 20 mg PO DAILY 90 days calcium carbonate-vitamin D3 600 mg-12.5 mcg (500 unit) (Calcium with Vit D3) 1 cap PO BID 90 days cholecalciferol (vitamin D3) 50 mcg PO DAILY lorazepam 0.5 mg PO DAILY PRN 30 days omeprazole 20 mg PO DAILY Tobacco use date assessed: 05/16/24 Dental Screening Dental Screen Date: 05/16/24 Did you have a dental visit in the last 12 months?: Yes Did you have a dental problem in the last 6 months where you did not have access to dental care?: No Was dental information given to patient?: Patient has dentist HPI 6 month follow up HPI Details Chief Complaint Reports of soft, foul-smelling stools with itching and medication concerns. History of Present Illness The patient is a 64-year-old female presenting with concerns regarding gastrointestinal symptoms and anxiety management. She reports experiencing more sludgy, soft, and foul-smelling stools since November. After bowel movements, she feels itchy and often needs to wipe again, indicating possible slight fecal leakage. The patient's stools are reportedly frequent, approximately once daily, but she denies any abdominal cramping, fevers, or blood in the stool. Her recent Cologuard test is up to date. Additionally, the patient has ongoing anxiety issues. She has tried multiple medications in the past, with limited success. Buspirone was effective, but it caused ear migraines. She has been prescribed Ezetimibe, but has stopped it due to its cost. Currently, her lipid profile is being managed with atorvastatin, which she appears to tolerate well. A dosage increase of atorvastatin to 20 mg at night was considered, with plans to recheck lipid levels in six weeks to two months. Social History Health Maintenance - Cologuard test is up to date. Review of Systems - Gastrointestinal: Reports soft, foul-smelling stools; denies blood in stool, abdominal cramping, fevers. - General: Denies fevers, chills. Physical Exam General: Cooperative, healthy appearing, comfortable, no acute distress and well developed Orientation: Patient oriented x3 Limitations: No limitations Head: Normal to inspection Ears: Hearing grossly normal bilaterally Nose: Normal external nose present Face and sinus: Normal facial exam Eyes: Appearance normal, both eyes and all related structures Neck: Normal visual inspection and Yes full ROM Respiratory: Normal respiratory effort and able to speak in complete sentences. Clear to auscultation bilaterally Cardiovascular: Regular rate and rhythm. Normal S1 and S2 GI: Normal to inspection. Soft to palpation and nontender Skin: No rashes or lesions noted Neuro: Patient oriented x3 Extremities: Normal to inspection, No edema Results Plan - Discontinue Eazintimbe due to cost; monitor lipid levels after increasing atorvastatin to 20 mg at night. Review in 6-8 weeks. - Referral to a female associate professor of chemistry for evaluation of soft, foul-smelling stools with itching and fecal leakage. - Arrange consultation with outpatient psychiatry for further evaluation of anxiety and possible management options given past buspirone use. Patient was informed and verbally consented to the use of an ambient scribe for clinic note documentation during this visit. Discussion Notes I discussed the patient's ongoing gastrointestinal symptoms and the decision to refer her to a female associate professor of chemistry for a comprehensive evaluation. We reviewed her concerns about the expense of Ezetimbe and the plan to increase atorvastatin as a cost-effective alternative. I also addressed her anxiety management history and the need for psychiatric consultation to find a suitable treatment plan given previous buspirone effectiveness and adverse effects. There will be a follow-up for her lipid levels in 6-8 weeks to assess the effectiveness of the increased atorvastatin dose. Patient Instructions - Continue atorvastatin, now increased to 20 mg at night. Monitor any side effects. - Attend referral appointment with the associate professor of chemistry for stool symptoms. - Look for a reminder regarding the appointment with outpatient psychiatry for anxiety evaluation. - Return for follow-up in 6-8 weeks to monitor lipid levels. [facility] Surgical History History of cone biopsy of cervix History of lymph node excision History of mastectomy, total History of breast reconstruction Family History Father Colon cancer Fall Substance use disorder Mother Arthritis Dementia Mental health disorder Brother Substance use disorder Paternal Uncle Substance use disorder Paternal Grandfather Substance use disorder Social History Housing: House Patient Tobacco Use Status: Never used Tobacco e-Cigarette/Vaping Use: Never Used Second Hand Smoke Exposure: No service: No Current occupational status: disabled Cognitive needs: No Hearing needs: No Vision needs: No Questionnaire PHQ-9 Over the last 2 weeks, how often have you been bothered by any of the following problems? 1. Little interest or pleasure in doing things: several days 2. Feeling down, depressed, or hopeless: several days 3. Trouble falling or staying asleep, or sleeping too much: several days 4. Feeling tired or having little energy: more than half the days 5. Poor appetite or overeating: not at all 6. Feeling bad about yourself - or that you are a failure or have let yourself or your family down: several days 7. Trouble concentrating on things, such as reading the newspaper or watching television: more than half the days 8. Moving or speaking so slowly that other people could have noticed. Or the opposite - being so fidgety or restless that you have been moving around a lot more than usual: several days 9. Thoughts that you would be better off or of hurting yourself in some way: not at all Total score: 9 Depression Screening Interpretation: Positive Depression Screening Done: Yes 24945 - PHQ-9 Billing: Yes Source: Developed by Drs. Mikey Camarena, Kalyn Espinal, Brenton Albarado and colleagues, with an educational chastity from [employer]. Thrive Questionnaire Date Thrive assessed: 05/16/24 I am a: Patient What is your living situation today?: I have a steady place to live Within the past 12 months, did the food you bought not last and you didn't have the money to get more?: Never true Within the past 12 months, did you worry whether your food would run out before you got money to buy more?: Never true Do you have trouble paying for medicines?: No Do you have trouble getting transportation to medical appointments?: No Do you have trouble paying your heating and electricity bill?: No Do you have trouble taking care of your child, family member or friend?: No Do you have trouble with day-to-day activities such as bathing, preparing meals, shopping, managing finances, etc.?: No Are you currently unemployed and looking for a job?: No Are you interested in more education?: No Please select the resources that you would like help with: None Currently or been in a relationship where the following occur: No concerns reported THRIVE Score: 0 AUDIT C Alcohol Use Questionnaire (AUDIT-C) 1. How often do you have a drink containing alcohol?: 2-4 times a month 2. How many drinks containing alcohol do you have on a typical day when you are drinking?: 1 or 2 3. How often do you have six or more drinks on one occasion?: Never Total Score: 2 Score Reviewed/Action Taken: Yes FERMIN-7 AMB Questionnaire FERMIN-7 Date FERMIN - 7 assessed: 05/16/24 Feeling nervous, anxious, or on edge: 2 = More than half the days Not being able to stop or control worryin = More than half the days Worrying too much about different things: 2 = More than half the days Trouble relaxin = More than half the days Being so restless that it is hard to sit still: 2 = More than half the days Becoming easily annoyed or irritable: 2 = More than half the days Feeling afraid as if something awful might happen: 2 = More than half the days Total FERMIN-7 score (0-4 normal; 5-9 mild; 10-14 moderate; 15-21 severe): 14 Source: Developed by Drs. Mikey Camarena, Kalyn Espinal, Brenton Albarado and colleagues, with an educational chastity from [employer]. FREMIN-7 Assessment Billing FERMIN-7 Assessment Tool: FERMIN-7 Assessment 80979 Physical exam (Primary Care) Vital Signs: Last Vital Signs Temp 98.1 F 05/16/24 09:56 Pulse 84 05/16/24 09:56 BP 124/88 05/16/24 09:56 Pulse Ox 99 05/16/24 09:56 Oxygen Delivery Method Room Air 05/16/24 09:56 BMI result Body Mass Index 22.2 Tobacco/Smoking Status: Tobacco use Status Tobacco use date assessed 05/16/24 05/16/24 09:57 Patient Tobacco Use Status Never used Tobacco 05/16/24 09:57 e-Cigarette/Vaping Use Never Used 05/16/24 09:57 PHQ-9: PHQ-9 Score PHQ-9: Total score 9 05/16/24 10:20 Depression Screening Interpretation: Positive Thrive Assessment: Date of Thrive Assessment Date Thrive assessed 05/16/24 05/16/24 09:57 Currently or been in a relationship where the following occur: No concerns reported Coding Level of Care Code Est Pt Level 3 (91098) Diagnoses Loose stools R19.5 Fecal soiling R15.1 Anxiety F41.9 Dyslipidemia E78.5 Additional Codes FERMIN-7 Assessment Billing - FERMIN-7 Assessment Tool: FERMIN-7 Assessment 82953 ([id number]) PHQ-9 - 09995 - PHQ-9 Billing: Yes ([id number]) Assessment & Plan Assessment & Plan (1) Loose stools: Code(s): R19.5 - Other fecal abnormalities Category: Medical (2) Fecal soiling: Code(s): R15.1 - Fecal smearing Category: Medical (3) Anxiety: Code(s): F41.9 - Anxiety disorder, unspecified Category: Medical (4) Dyslipidemia: Code(s): E78.5 - Hyperlipidemia, unspecified Category: Medical Plan . Orders: Referrals Gastroenterology Referral R15.1 - Fecal smearing, R19.5 - Other fecal abnormalities Psychiatry Outpatient Consultation Service F41.9 - Anxiety disorder, unspecified Medications: Changed From atorvastatin 10 mg PO DAILY 90 days 90 tabs 1RF To atorvastatin 20 mg PO DAILY 90 tabs 1RF 90 days Discontinued ezetimibe Discontinued Reason: Doctor's Order 10 mg PO DAILY 90 caps 1RF
[2024-05-16 09:56] VITALS: BP 124/88; PULSE 84; TEMP 36.7; O2SAT 99; BMI 22.2
--- OUTSIDE RECORDS SUMMARY | 2024-05-16 14:23 | XMS_ITS | Clinical Summary ---
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 05/26/2022 Active ezetimibe (Zetia) 10 MG tablet Take 10 mg by mouth in the morning. 08/31/2022 Active omeprazole (PriLOSEC) [address] capsule 1 ORAL twice daily for -3 07/21/2011 Active alendronate (Fosamax) 70 MG/75ML solution Take 70 mg by mouth every 7 (seven) days. Take in the morning with a full glass of water, on an empty stomach, and do not take anything else by mouth or lie down for the next 30 min. Active cholecalciferol (Vitamin D-3) 50 MCG (2000 UT) tablet Take 2,000 Units by mouth in the morning. Active ergocalciferol (Vitamin D2) 1.25 MG (14557 UT) capsule Take 1 capsule by mouth 1 (one) time per week. 07/01/2023 Active calcium carbonate (Os-Jarret) 1250 (500 Ca) MG chewable tablet Chew 1 tablet Once per day. Active Encounters Date Type Department Care Team Description 03/21/2024 9:00 AM EST Office Visit [facility] [address] [place] [address] Levar, Toyin, OD Hyperopia of both eyes (Primary Dx) 03/21/2024 Outside Procedure [facility] [address] [place] [address] Levar, Toyin, OD Presbyopia (Primary Dx) from Last 3 Months Social History Tobacco Use Types Packs/Day Years Used Date Smoking Tobacco: Never Smokeless Tobacco: Never Tobacco Cessation:Counseling Given: Not Answered Comments No Sex and Gender Information Value Date Recorded Sex Assigned at Female 10/24/2022 11:24 AM EDT Legal Sex Female 11:19 AM EDT Gender Identity Female 10/24/2022 11:24 AM EDT Sexual Orientation Choose not to disclose 2022 11:24 AM EDT Last Filed Vital Signs Vital Sign Reading Time Taken Comments Blood Pressure 108/73 01/20/2024 8:08 AM EDT Pulse 70 01/20/2024 8:08 AM EDT Temperature - - Respiratory Rate - - Oxygen Saturation - - Inhaled Oxygen Concentration - - Weight - - Height - - Body Mass Index - - Plan of Treatment Health Maintenance Due Date Last Done Comments CT Colonography 1961 Colonoscopy 1961 Depression Screening 1961 FIT 1961 FOBT 1961 HIV Screening 1961 SDOH Screening 1961 Sigmoidoscopy 1961 Pneumococcal Vaccine: Pediatrics (0 to 5 Years) and At-Risk Patients (6 to 64 Years) (1 of 2 - PCV) 1967 Alcohol/Substance Use Screening 1973 Hepatitis C Screening 1979 DTaP/Tdap/Td Vaccines (1 - Tdap) 02/28/1980 Pap Smear 1982 Cervical Cancer Screening 1991 HPV/Cotest 1991 Mammogram 2001 Zoster Vaccines (1 of 2) 2011 RSV Patients and Patients Aged 60 years or older (1 - Risk 60-74 years 1-dose series) 2021 COVID-19 Vaccine ( - 2023-2 5 season) 2023 Influenza Vaccine (#1) 2023 Dental Oral Exam 07/21/2024 01/20/2024, 07/15/2023, 11/12/2022 Dental Prophylaxis 07/21/2024 01/20/2024, 07/15/2023, 01/12/2023 Tobacco Screening 01/19/2025 01/20/2024 Dental X-Ray: Bitewings 01/20/2025 01/20/20, 11/12/2022 Dental X-Ray: Full Mouth 11/13/2025 11/12/2022 Colorectal Cancer Screening 12/04/2026 FIT DNA/Cologuard 12/04/2026 12/05/2023, 06/11/2020 HIB Vaccines Aged Out No longer eligi ble based on patient's age to complete this topic HPV Vaccines Aged Out No longer eligi ble based on patient's age to complete this topic Hepatitis A Vaccines Aged Out No long er eligible based on patient's age to complete this topic Hepatitis B Vaccines Aged Out No long er eligible based on patient's age to complete this topic IPV Vaccines Aged Out No longer eligi ble based on patient's age to complete this topic Meningococcal Vaccine Aged Out No harry anant eligible based on patient's age to complete this topic RSV under 20 months Aged Out No longe r eligible based on patient's age to complete this topic Rotavirus Vaccines Aged Out No longer eligible based on patient's age to complete this topic Procedures Procedure Name Priority Date/Time Associated Diagnosis Comments PROPHYLAXIS - ADULT Routine 01/20/2024 8 :00 AM EDT BITEWINGS - 4 RADIOGRAPHIC IMAGES Routine 01/20/2024 8:00 AM EDT PERIODIC ORAL EVALUATION - ESTABLISHED PATIENT Routine 01/20/2024 8:00 AM EDT DIAGNOSTIC - DIAGNOSTIC IMAGING - INTRAORAL - COMPREHENSIVE SERIES OF RADIOGRAPHIC IMAGES Routine 11/12/2022 8:00 AM EDT Encounter for dental examination from Last 3 Months or Most Recently Relevant to Health Maintenance Insurance [employer] [facility] MEDICAID STAND ADULT
--- OUTSIDE RECORDS SUMMARY | 2024-05-16 14:23 | XMS_ITS | Patient Health Record ---
Author Organization [facility] Address [address] [place] [address] Support Name Relationship Address Phone SAWYER MCGUIRE Guarantor Unknown [phone] Reason For Referral No Information Medications Medication SIG (Take, Route, Fr equency, Duration) Notes Start Date End Date Status miSOPROStol 200MCG 2 ORAL NIGHT BEFORE PROCEDURE for -3 Gordon-MJ 07/21/2011 Active Omeprazole 20MG 1 ORAL twice daily for -3 Gordon-MJ 07/21/19 12 Active Problems Problem Type SNOMED Code ICD Code Onset Dates Problem Status W/U Status Risk Notes Problem Asthma (disorder) (653602121) Asthma, unspecified, unspecified status (493.90) Active confirmed Major Problem Esophageal reflux (740525089) Esophageal reflux (530.81) Active confirmed Major Problem Dysplasia of cervix (40765302) Dysplasia of cervix, unspecified (622.10) Active confirmed Diag Problem Metrorrhagia (43123128) Metrorrhagia (626.6) Active confirmed Major Problem Abnormal vaginal bleeding (713442069) Other disorder of menstruation and other abnormal bleeding from female genital tract (626.8) Active confirmed Diag Problem Menopausal symptom (46913109) Symptomatic menopausal or female climacteric states (627.2) Active confirmed Major Problem Gynecological examination normal (092475896431176) Routine gynecological examination (V72.31) Active confirmed Major Problem Screening for malignant neoplasm of colon (161849430) Special screening for malignant neoplasms, colon (V76.51) Active confirmed Major Plan Of Treatment No Information Insurance Providers Payer Name Payer Address Payer Phone Subscriber Number Group Number Insured Name Patient Relationship to Insured Coverage Start Date Coverage End Date [facility] [address] [place] [address] [phone] [id number] JESUS MCGUIRE Spouse - patient is the spouse of the insured 2
== END 2024-05-16 10:41 | disposition home or self-care (01) ==
PROVIDERS: PCP Nurse Practitioner Family; Visit Provider Nurse Practitioner Family
DX: R19.5 Other fecal abnormalities (principal); R15.1 Fecal smearing; F41.9 Anxiety disorder, unspecified; E78.5 Hyperlipidemia, unspecified

== ENCOUNTER → 2024-05-16 09:52 | Outpatient (BNVA) | payer OTHER, SELFPAY | PROVIDERS: PCP Nurse Practitioner Family; Visit Provider Nurse Practitioner Family | DX: R19.5 Other fecal abnormalities (principal); R15.1 Fecal smearing; F41.9 Anxiety disorder, unspecified; E78.5 Hyperlipidemia, unspecified | CPT/HCPCS: 96127; 99212 ==

== ENCOUNTER 2024-08-24 15:02 | Outpatient (AMB) | payer OTHER, SELFPAY ==
--- NOTE | 2024-08-24 15:02 | A.OFFVIS_ITS ---
Intake Visit Reasons: Loose stools - moved from Thursday Intake Note: Essence presents as a new patient for loose stools. CC: States that she is just having the diarrhea and loose stools. No constipation, no pains in the stomach and she states she had a cologuard in the summer that came back negative. [employer] Required: No Allergies Sulfa (Sulfonamide Antibiotics) [SULFA (SULFONAMIDE ANTIBIOTICS)] Allergy (Intermediate, Verified 08/24/24 15:02) RASH opioids Allergy (Unknown, Uncoded 08/24/24 15:02) unknown HPI Comments Details: 64 y.o F with PMH of who is establishing care for GI complaints. Seen as video visit. Reports hx of loose stools since November. Goes once a day but stool is just soft and sticky. They sometimes float in the toilet bowl. Assoc with sensation of constant leakage and itching but when wipes does not see any fecal debris, just some mucus. Sometimes has rectal pressure and feels hemorrhoids prolapsing perhaps. Started calcium suplements around this time and wonders if this prompted the sx. [facility] Surgical History (Updated 08/24/24 @ 15:02 by ALISA Vides) Hx of colonoscopy History of cone biopsy of cervix History of lymph node excision History of mastectomy, total History of breast reconstruction Family History Father Colon cancer Fall Substance use disorder Mother Arthritis Dementia Mental health disorder Brother Substance use disorder Paternal Uncle Substance use disorder Paternal Grandfather Substance use disorder Social History Housing: House Patient Tobacco Use Status: Never used Tobacco e-Cigarette/Vaping Use: Never Used Second Hand Smoke Exposure: No service: No Current occupational status: disabled Cognitive needs: No Hearing needs: No Vision needs: No Review of Systems Const All systems reviewed & are unremarkable except as noted in HPI and below Physical Exam Vital Signs: Video visit: No acute distress No icterus noted No facial asymmetry Speaking in full sentences Telehealth Telehealth Telehealth Platform: [facility] Location of provider rendering services: practice address Location of patient: address on file Patient Identification confirmed using: Name, : Yes Telehealth method: video Patient verbally consented to treatment: Yes Patient verbally consented to billing insurance company: Yes Patient informed of any privacy concerns related to visit: Yes Minutes spent on Phone/Video with Pt.: 17 Assessment & Plan Assessment & Plan (1) Change in bowel habit: Code(s): R19.4 - Change in bowel habit Category: Medical (2) Rectal discharge: Code(s): R19.8 - Other specified symptoms and signs involving the digestive system and abdomen Category: Medical Plan Reviewed with the patient that some of the symptoms are suspicious for hemorrhoids leading to sensation of itching and mucus discharge. Would recommend taking fiber which would also help bulk the stool, avoiding straining. In addition, for change in stool consistency, full obtain labs to rule out malabsorption such as celiac, pancreatic insufficiency, fecal calprotectin for IBD. Will also check ultrasound for cholelithiasis. Plan: - labs as below - ultrasound abdomen - fiber supplementation - avoid straining and constipation - Sitz baths - follow-up in 6-8 weeks. Can review topical steroid, if hemorrhoids confirmed on rectal exam at next visit. Orders: Orders C Reactive Protein Today R19.4 - Change in bowel habit Transglutaminase IgA Today R19.4 - Change in bowel habit Complete Blood Count no Diff Today R19.4 - Change in bowel habit Calprotectin, Fecal Today R19.4 - Change in bowel habit Immunoglobulin A Today R19.4 - Change in bowel habit Immunoglobulin G Today R19.4 - Change in bowel habit Fecal Fat Qualitative Today R19.4 - Change in bowel habit Pancreatic Elastase-1 Today R19.4 - Change in bowel habit CDiff Gene PCR Today R19.4 - Change in bowel habit US abdomen complete Today R19.4 - Change in bowel habit Coding Level of Care Code Tele New Pt Level 4 (01441) Diagnoses Change in bowel habit R19.4 Rectal discharge R19.8
--- OUTSIDE RECORDS SUMMARY | 2024-08-24 16:04 | XMS_ITS | Patient Health Record ---
Author Organization [facility] Address [address] [place] [address] Support Name Relationship Address Phone SAWYER MCGUIRE Guarantor Unknown [phone] Reason For Referral No Information Medications Medication SIG (Take, Route, Fr equency, Duration) Notes Start Date End Date Status miSOPROStol 200MCG 2 ORAL NIGHT BEFORE PROCEDURE for -3 Gordon-MJ 07/21/2011 Active Omeprazole 20MG 1 ORAL twice daily for -3 Gordon-MJ 07/21/19 12 Active Problems Problem Type SNOMED Code ICD Code Onset Dates Problem Status W/U Status Risk Notes Problem Asthma (disorder) (331465075) Asthma, unspecified, unspecified status (493.90) Active confirmed Major Problem Esophageal reflux (893567141) Esophageal reflux (530.81) Active confirmed Major Problem Dysplasia of cervix, unspecified (622.10) Active confirmed Diag Problem Metrorrhagia (09452522) Metrorrhagia (626.6) Active confirmed Major Problem Abnormal vaginal bleeding (121359579) Other disorder of menstruation and other abnormal bleeding from female genital tract (626.8) Active confirmed Diag Problem Menopausal symptom (06065213) Symptomatic menopausal or female climacteric states (627.2) Active confirmed Major Problem Gynecological examination normal (241141594224205) Routine gynecological examination (V72.31) Active confirmed Major Problem Screening for malignant neoplasm of colon (498701725) Special screening for malignant neoplasms, colon (V76.51) Active confirmed Major Plan Of Treatment No Information Insurance Providers Payer Name Payer Address Payer Phone Subscriber Number Group Number Insured Name Patient Relationship to Insured Coverage Start Date Coverage End Date [facility] [address] [place] [address] [id number] JESUS MCGUIRE Spouse - patient is the spouse of the insured 04/02/201 2
== END 2024-08-24 18:08 ==
LOC: HO.HGI 15:02
PROVIDERS: PCP Nurse Practitioner Family; Visit Provider Internal Medicine
DX: R19.4 Change in bowel habit (principal); R19.8 Other specified symptoms and signs involving the digestive system and abdomen
CPT/HCPCS: 98000

== ENCOUNTER 2024-08-27 06:52 | Outpatient (REF) | payer OTHER, SELFPAY ==
--- OUTSIDE RECORDS SUMMARY | 2024-08-27 06:54 | XMS_ITS | Clinical Summary ---
Author Organization [employer] Address [address] [place] [address] Care Team Providers Care Sleeve Fixer Name Role Phone Unavailable Primary Care Provider Unavailabl e Allergies Active Allergy Reactions Criticality Noted Date Comments Sulfa Antibiotics Rash Low 10/09/2014 Medications atorvastatin (Lipitor) 10 MG tablet Take 10 mg by mouth in the morning. 05/26/2022 Active omeprazole (PriLOSEC) [address] capsule [...] morning. Active ergocalciferol (Vitamin D2) 1.25 MG (28461 UT) capsule Take 1 capsule by mouth 1 (one) time per week. 07/01/2023 Active calcium carbonate (Os-Jarret) 1250 (500 Ca) MG chewable tablet Chew 1 tablet Once per day. Active Encounters Date Type Department Care Team Description 07/11/2024 4:00 PM EDT Office Visit [facility] [address] [place] [address] [id number] Elma Mcallister from Last 3 Months Social History Tobacco [...] Sign Reading Time Taken Comments Blood Pressure 124/82 07/11/2024 4:12 PM EDT Pulse 78 07/11/2024 4:12 PM EDT Temperature - - Respiratory Rate - - Oxygen Saturation - - Inhaled Oxygen Concentration - - Weight - - Height - - Body Mass Index - - Plan of Treatment Upcoming Encounters Date Type Department Care Team (Late st Contact Info) Description 09/13/2024 2:00 PM EDT Office Visit [facility] [address], [place] [phone] Ajith Larsen, DMD [address] [place] [address] 01/17/2025 1:00 PM EDT Office Visit [facility] [address] [place] [address] Elma Mcallister [address] [place] [address] Health Maintenance Due Date Last Done Comments CT Colonography 1961 Colonoscopy 1961 Depression Screening 1961 FIT 1961 FOBT 1961 HIV Screening 1961 SDOH Screening 1961 Sigmoidoscopy 1961 Alcohol/Substance Use Screening 1973 Hepatitis C Screening 1979 DTaP/Tdap/Td Vaccines (1 - Tdap) 02/28/1980 Pneumococcal Vaccine: 50+ Years (1 of 2 - PCV) 02/28/1980 Pap Smear 1982 Cervical Cancer Screening 1991 HPV/Cotest 1991 Mammogram 2001 Zoster Vaccines (1 of 2) 2011 RSV Patients and Patients Aged 60 years or older (1 - Risk 60-74 years 1-dose series) 2021 COVID-19 Vaccine ( - season) 2023 Influenza Vaccine (#1) 2023 Dental Oral Exam 01/12/2025 07/11/2024, 05/2023, 07/15/2023, Additional history exists Dental Prophylaxis 01/12/2025 07/11/2024, 1 , 07/15/2023, Additional history exists Dental X-Ray: Bitewings 01/20/2025 01/20/2024, 11/12 Tobacco Screening 07/11/2025 07/11/2024 Dental X-Ray: Full Mouth 11/13/2025 11/12/2022 Colorectal [...] Associated Diagnosis Comments PROPHYLAXIS - ADULT Routine 07/11/2024 4 :00 PM EDT PERIODIC ORAL EVALUATION - ESTABLISHED PATIENT Routine 07/11/2024 4:00 PM EDT BITEWINGS - 4 RADIOGRAPHIC IMAGES Routine 01/20/2024 8:00 AM EDT INTRAORAL - COMPLETE SERIES OF RADIOGRAPHIC IMAGES Routine 11/12/2022 8:00 AM EDT Encounter for dental examination from Last 3 Months or Most Recently Relevant to Health Maintenance Insurance [employer] [facility] MEDICAID [facility] ADULT [place] [facility]
[2024-08-27 11:45] LABS: Hematocrit 40.1 % (37.0-47.0); Hemoglobin 12.9 g/dl (12.0-16.0); Mean Corpuscular HGB Conc 32.2 g/dl (31.0-35.0); Mean Corpuscular Hemoglobin 30.4 pg (27.0-33.0); Mean Corpuscular Volume 94.6 fL (80.0-98.0); Mean Platelet Volume 11.2 fL (9.4-12.3); Platelet Count 196 X10*3/uL (160-400); Red Blood Count 4.24 X10*6/uL (4.20-5.50); Red Cell Distribution Width 12.8 % (11.0-16.0); White Blood Count 4.3 X10*3/uL (4.8-10.8)
[2024-08-27 11:53] LABS: C Reactive Protein < 0.10 mg/dL (< or = 0.50)
[2024-08-29 19:48] LABS: Immunoglobulin A 185 mg/dL (70-320); Immunoglobulin G 1084 mg/dL (600-1540)
[2024-09-01 16:09] LABS: Transglutaminase IgA <1.0 U/mL
== END 2024-08-27 06:53 | disposition home or self-care (01) ==
LOC: HO.HMGCLDS 06:52
PROVIDERS: PCP Nurse Practitioner Family; Visit Provider Internal Medicine
DX: R19.4 Change in bowel habit (principal)
CPT/HCPCS: 36415; 82784; 85027; 86140; 86364

== ENCOUNTER 2024-08-30 07:09 | Outpatient (REF) | payer OTHER, SELFPAY ==
[2024-08-30 10:33] LABS: CDiff Gene PCR NEGATIVE (Negative)
[2024-09-02 15:48] LABS: Fecal Fat Qualitative Normal (Normal)
[2024-09-04 01:09] LABS: Pancreatic Elastase-1 >800 mcg/g (>200)
[2024-09-04 19:59] LABS: Calprotectin, Fecal 80 mcg/g
== END 2024-08-30 07:10 | disposition home or self-care (01) ==
LOC: HO.LNP 07:09
PROVIDERS: Visit Provider Internal Medicine
DX: R19.4 Change in bowel habit (principal)
CPT/HCPCS: 82656; 82705; 83993; 87493

== ENCOUNTER 2024-09-05 06:11 | Outpatient (REF) | payer OTHER, SELFPAY ==
--- OUTSIDE RECORDS SUMMARY | 2024-09-05 06:14 | XMS_ITS | Patient Health Record ---
Author Organization [facility] Address [address] [place] [address] Support Name Relationship Address Phone SAWYER MCGUIRE Guarantor Unknown [phone] Reason For Referral No Information Medications Medication SIG (Take, Route, Fr equency, Duration) Notes Start Date End Date Status miSOPROStol 200MCG 2 ORAL NIGHT BEFORE PROCEDURE for -3 Gordon-MJ 07/21/2011 Active Omeprazole 20MG 1 ORAL twice daily for -3 Gordon-MJ 07/21/19 12 Active Problems Problem Type SNOMED Code ICD Code Onset Dates Problem Status W/U Status Risk Notes Problem Asthma (disorder) (737835351) Asthma, unspecified, unspecified status (493.90) Active confirmed Major Problem Esophageal reflux (469698888) Esophageal reflux (530.81) Active confirmed Major Problem Dysplasia of cervix (48038090) Dysplasia of cervix, unspecified (622.10) Active confirmed Diag Problem Metrorrhagia (89120328) Metrorrhagia (626.6) Active confirmed Major Problem Abnormal vaginal bleeding (183714572) Other disorder of menstruation and other abnormal bleeding from female genital tract (626.8) Active confirmed Diag Problem Menopausal symptom (27553830) Symptomatic menopausal or female climacteric states (627.2) Active confirmed Major Problem Gynecological examination normal (572183858022587) Routine gynecological examination (V72.31) Active confirmed Major Problem Screening for malignant neoplasm of colon (753769625) Special screening for malignant neoplasms, colon (V76.51) Active confirmed Major Plan Of Treatment No Information Insurance Providers Payer Name Payer Address Payer Phone Subscriber Number Group Number Insured Name Patient Relationship to Insured Coverage Start Date Coverage End Date [facility] [address] [place] [address] [phone] [id number] JESUS MCGUIRE Spouse - patient is the spouse of the insured 2
[2024-09-05 06:27] LABS: MANUAL DIFF FLAG NO
[2024-09-05 07:23] LABS: Basophils Absolute Auto 0.1 X10*3/uL (0.0-0.2); Basophils Percent Auto 1.4 % (0-2); Eosinophils Absolute Auto 0.2 X10*3/uL (0.0-0.4); Hematocrit 39.3 % (37.0-47.0); Hemoglobin 12.8 g/dl (12.0-16.0); Imm Gran Abs Auto 0.02 X10*3/uL (0.00-0.03); Imm Gran Pct Auto 0.4 % (0.0-0.4); Lymphocytes Absolute Auto 1.3 X10*3/uL (1.2-4.9); Lymphocytes Percent Auto 25.9 % (20-40); Mean Corpuscular HGB Conc 32.6 g/dl (31.0-35.0); Mean Corpuscular Hemoglobin 30.6 pg (27.0-33.0); Mean Platelet Volume 10.6 fL (9.4-12.3); Monocytes Absolute Auto 0.4 X10*3/uL (0.1-1.2); Monocytes Percent Auto 8.2 % (2-11); Neutrophils Absolute Auto 3.1 x10*3/uL (2.0-8.3); Neutrophils Percent Auto 61.1 % (45-73); Platelet Count 188 X10*3/uL (160-400); Red Blood Count 4.18 X10*6/uL (4.20-5.50); Red Cell Distribution Width 12.7 % (11.0-16.0)
[2024-09-05 08:00] LABS: Alanine Aminotransferase 13 U/L (0-31); Albumin Level 4.1 g/dL (3.5-5.0); Alkaline Phosphatase 46 U/L (39-117); Anion Gap 12 (12-20); Aspartate Amino Transferase 20 U/L (5-31); Bilirubin Total 0.6 mg/dL (0.0-1.0); Blood Urea Nitrogen 20 mg/dL (9-16); Calcium 9.2 mg/dL (8.4-10.2); Carbon Dioxide 27 mmol/L (22-29); Chloride 106 mmol/L (96-108); Cholesterol 174 mg/dL (<200); Estimated Glomerular Filt Rate > 60; Glucose Fasting 91 mg/dL (60-99); HDL Cholesterol 57 mg/dL (>40); LDL Cholesterol Calculated 107 mg/dL (<100); Potassium 3.9 mmol/L (3.3-5.1); Sodium 141 mmol/L (135-145); Total Protein 6.8 g/dL (6.5-8.0); Triglycerides 53 mg/dL (<150)
[2024-09-05 08:18] LABS: TSH reflex Free T4 5.92 uIU/mL (0.32-4.0); Vitamin D 25-OH Total 38.5 ng/mL (>30)
[2024-09-05 09:10] LABS: Free T4 (Free Thyroxine) 1.03 ng/dL (0.71-1.85)
== END 2024-09-05 06:12 | disposition home or self-care (01) ==
LOC: HO.LAB 06:11
PROVIDERS: PCP Nurse Practitioner Family; Visit Provider Nurse Practitioner Family
DX: Z00.01 Encounter for general adult medical examination with abnormal findings (principal); M81.0 Age-related osteoporosis without current pathological fracture
CPT/HCPCS: 36415; 80053; 80061; 82306; 84439; 84443; 85025

== ENCOUNTER 2024-09-10 07:31 | Outpatient (REF) | payer OTHER, SELFPAY ==
[2024-09-10 07:39] LABS: Appearance Urine Clear; Color Urine Yellow; Glucose Urine UA Negative (Negative); Leukocyte Esterase Urine Large (3+) (Negative); Nitrite Urine Negative (Negative); PH 6.5 (5.0-9.0); UMIC TRIGGER UACC YES; Urine Blood Trace (Negative); Urine Ketones Negative (Negative); Urine Protein Negative (Neg-Trace)
[2024-09-10 07:45] LABS: Bacteria Urine None Seen (None Seen); Hyaline Casts Urine 0-2 /LPF (0-2); RBC Urine 0-2 /HPF (0-2); Squamous Epithelial Cell Urine 0-2 /HPF (0-2); UACC Culture Trigger YES; WBC Urine >50 /HPF (0-5)
== END 2024-09-10 07:32 | disposition home or self-care (01) ==
LOC: HO.LNP 07:31
PROVIDERS: Visit Provider Nurse Practitioner Family
DX: R30.0 Dysuria (principal)
CPT/HCPCS: 81001; 87086

== ENCOUNTER 2024-09-13 15:52 | Outpatient (AMB) | payer OTHER, SELFPAY ==
[2024-09-13 15:55] VITALS: BP 118/70; PULSE 86; O2SAT 95; BMI 22.2
--- NOTE | 2024-09-13 15:55 | A.OFFPC_ITS ---
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 Accompanied by: Self / Same As Patient Allergies Sulfa (Sulfonamide Antibiotics) [SULFA (SULFONAMIDE ANTIBIOTICS)] Allergy (Intermediate, Verified 09/13/24 16:15) RASH opioids Allergy (Unknown, Uncoded 09/13/24 16:15) unknown Medication List - Last Reconciled 09/13/24 by GUSTAVO Kerns- atorvastatin 20 mg PO DAILY 90 days calcium carbonate-vitamin D3 600 mg-12.5 mcg (500 unit) (Calcium with Vit D3) 1 cap PO BID 90 days lorazepam 0.5 mg PO DAILY PRN 30 days omeprazole 20 mg PO DAILY Tobacco use date assessed: 05/16/24 Dental Screening Dental Screen Date: 05/16/24 HPI 4m follow up HPI Details Chief Complaint The patient presents for follow-up concerning dyslipidemia. History of Present Illness The patient is a 64-year-old female presenting with dyslipidemia. Her lipid levels are stable with atorvastatin treatment. In recent laboratory evaluations, a thyroid dysfunction was detected, but she denies experiencing related symptoms such as constipation or sluggishness, recognizing her chronic fatigue history. She currently prefers to monitor her thyroid function through TSH levels over commencing new treatments. Additionally, microhematuria and leukocytes were present in the urinalysis, necessitating a follow-up with repeated urine tests and further cytological evaluation. 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 She is also scheduled for a ABD US in the near future, so a image of her kidneys will be performed Social History Health Maintenance - Managing dyslipidemia with atorvastati n - Monitoring thyroid function with TSH l evels - Follow-up on urinalysis for microhemat uria and leukocytes - Gynecological care for estrogen defici ency Review of Systems - Constitutional: Denies lethargy. - Gastrointestinal: Denies constipation. - Genitourinary: Reports microhematuria; denies other urinary symptoms. Physical Exam General: Cooperative, healthy appearing, comfortable, no acute distress and well developed Orientation: Patient oriented x3 Limitations: No limitations Head: Normal to inspection Ears: Hearing grossly normal bilaterally Nose: Normal external nose present Face and sinus: Normal facial exam Eyes: Appearance normal, both eyes and all related structures Neck: Normal visual inspection and Yes full ROM Respiratory: Normal respiratory effort and able to speak in complete sentences. Clear to auscultation bilaterally Cardiovascular: Regular rate and rhythm. Normal S1 and S2 GI: Normal to inspection. Soft to palpation and nontender Skin: No rashes or lesions noted Neuro: Patient oriented x3 Extremities: Normal to inspection Results - Labs: Detected thyroid dysfunction; pr esence of leukocytes and microhematuria in urinalysis. Plan Continue atorvastatin for dyslipidemia as cholesterol levels are stable. The thyroid dysfunction will be monitored with regular TSH evaluations without immediate treatment due to the absence of notable symptoms. Repeat urine tests and conduct cytology for microhematuria and leukocytes, and she will maintain ongoing gynecological treatment for estrogen deficiency. Follow-ups will be scheduled to reassess all management decisions based on upcoming test results. Discussion Notes I discussed the management of dyslipidemia, emphasizing the effectiveness of atorvastatin, and we agreed to maintain the current regimen given the stability of her cholesterol levels. Regarding thyroid dysfunction, I explained the options and we chose to monitor TSH levels due to minimal symptoms, deferring levothyroxine treatment. For the urinalysis findings of microhematuria and leukocytes, I recommended repeating the tests and obtaining a cytology, to which she consented. I addressed the details of her estrogen deficiency management with her on site wastewater systems technician. We discussed the importance of monitoring her symptoms and the need for future follow-ups based on additional findings and progress. Patient Instructions - Continue taking atorvastatin as direct ed. - Monitor for any new or worsening sympt oms. - Follow up with repeat urine tests as a dvised. - Maintain appointments and communicatio n with your on site wastewater systems technician for estrogen deficiency. - Attend follow-up appointments for eval uation of lab results and any further management. [facility] Surgical History Hx of colonoscopy History of cone biopsy of cervix History of lymph node excision History of mastectomy, total History of breast reconstruction Family History Father Colon cancer Fall Substance use disorder Mother Arthritis Dementia Mental health disorder Brother Substance use disorder Paternal Uncle Substance use disorder Paternal Grandfather Substance use disorder Social History Housing: House Patient Tobacco Use Status: Never used Tobacco e-Cigarette/Vaping Use: Never Used Second Hand Smoke Exposure: No service: No Current occupational status: disabled Cognitive needs: No Hearing needs: No Vision needs: No Questionnaire Thrive Questionnaire Date Thrive assessed: 09/13/24 I am a: Patient What is your living situation today?: I have a steady place to live Within the past 12 months, did the food you bought not last and you didn't have the money to get more?: Never true Within the past 12 months, did you worry whether your food would run out before you got money to buy more?: Never true Do you have trouble paying for medicines?: No Do you have trouble getting transportation to medical appointments?: No Do you have trouble paying your heating and electricity bill?: No Do you have trouble taking care of your child, family member or friend?: No Do you have trouble with day-to-day activities such as bathing, preparing meals, shopping, managing finances, etc.?: No Are you currently unemployed and looking for a job?: No Are you interested in more education?: No Please select the resources that you would like help with: None Currently or been in a relationship where the following occur: No concerns reported THRIVE Score: 0 FERMIN-7 AMB Questionnaire FERMIN-7 Date FERMIN - 7 assessed: 05/16/24 Source: Developed by Drs. Mikey Camarena, Kalyn Espinal, Brenton Albarado and colleagues, with an educational chastity from [employer]. Physical exam (Primary Care) Vital Signs: Last Vital Signs Pulse 86 09/13/24 15:55 BP 118/70 09/13/24 15:55 Pulse Ox 95 09/13/24 15:55 BMI result Body Mass Index 22.2 Tobacco/Smoking Status: Tobacco use Status Tobacco use date assessed 05/16/24 09/13/24 15:57 Patient Tobacco Use Status Never used Tobacco 09/13/24 15:57 e-Cigarette/Vaping Use Never Used 09/13/24 15:57 Thrive Assessment: Date of Thrive Assessment Date Thrive assessed 09/13/24 09/13/24 15:57 Currently or been in a relationship where the following occur: No concerns reported Coding Level of Care Code Est Pt Level 3 (41421) Diagnoses Postmenopausal Z78.0 Microscopic hematuria R31.29 Elevated TSH R79.89 Osteoporosis M81.0 Assessment & Plan Assessment & Plan (1) Postmenopausal: Code(s): Z78.0 - Asymptomatic menopausal state Category: Medical (2) Microscopic hematuria: Code(s): R31.29 - Other microscopic hematuria Category: Medical (3) Elevated TSH: Code(s): R79.89 - Other specified abnormal findings of blood chemistry Category: Medical (4) Osteoporosis: Code(s): M81.0 - Age-related osteoporosis without current pathological fracture Category: Medical Plan . Orders: Orders UA CC w/rflx Micro + Cult Today R31.29 - Other microscopic hematuria, Z78.0 - Asymptomatic menopausal state Urine Culture Today R31.29 - Other microscopic hematuria, Z78.0 - Asymptomatic menopausal state Vitamin D 25-OH Total Today M81.0 - Age-related osteoporosis without current pathological fracture Urine Cytology Today R31.29 - Other microscopic hematuria TSH reflex Free T4 Today R79.89 - Other specified abnormal findings of blood chemistry Thyroid Peroxidase Antibodies Today R79.89 - Other specified abnormal findings of blood chemistry XR DEXA axial skeleton Today M81.0 - Age-related osteoporosis without current pathological fracture
== END 2024-09-13 16:35 | disposition home or self-care (01) ==
LOC: HO.HMCC 15:53
PROVIDERS: PCP Nurse Practitioner Family; Visit Provider Nurse Practitioner Family
DX: Z78.0 Asymptomatic menopausal state (principal); R31.29 Other microscopic hematuria; R79.89 Other specified abnormal findings of blood chemistry; M81.0 Age-related osteoporosis without current pathological fracture

== ENCOUNTER → 2024-09-13 15:52 | Outpatient (BNVA) | payer OTHER, SELFPAY | PROVIDERS: PCP Nurse Practitioner Family; Visit Provider Nurse Practitioner Family | DX: M81.0 Age-related osteoporosis without current pathological fracture (principal); E78.5 Hyperlipidemia, unspecified; R31.29 Other microscopic hematuria; R79.89 Other specified abnormal findings of blood chemistry; Z78.0 Asymptomatic menopausal state | CPT/HCPCS: 99212 ==

== ENCOUNTER 2024-10-01 08:56 | Outpatient (REF) | payer OTHER, SELFPAY ==
[2024-10-01 09:49] LABS: Urine Cytology See Pathology rpt
[2024-10-01 09:56] LABS: Appearance Urine Clear; Color Urine Yellow; Glucose Urine UA Negative (Negative); Leukocyte Esterase Urine Small (1+) (Negative); Nitrite Urine Negative (Negative); PH 5.5 (5.0-9.0); UMIC TRIGGER UACC YES; Urine Blood Negative (Negative); Urine Ketones Negative (Negative); Urine Protein Negative (Neg-Trace)
[2024-10-01 09:59] LABS: Bacteria Urine None Seen (None Seen); Hyaline Casts Urine 0-2 /LPF (0-2); RBC Urine 0-2 /HPF (0-2); Squamous Epithelial Cell Urine 0-2 /HPF (0-2); UACC Culture Trigger YES
[2024-10-01 11:00] LABS: TSH reflex Free T4 3.22 uIU/mL (0.32-4.0)
[2024-10-03 22:49] LABS: Thyroid Peroxidase Antibodies 5 IU/mL (<9)
== END 2024-10-01 08:57 | disposition home or self-care (01) ==
LOC: HO.LAB 08:56
PROVIDERS: PCP Nurse Practitioner Family; Visit Provider Nurse Practitioner Family
DX: Z00.01 Encounter for general adult medical examination with abnormal findings (principal); M81.0 Age-related osteoporosis without current pathological fracture; R31.29 Other microscopic hematuria; R79.89 Other specified abnormal findings of blood chemistry; Z78.0 Asymptomatic menopausal state
CPT/HCPCS: 36415; 81001; 82306; 84443; 86376; 87086; 88112

== ENCOUNTER 2024-10-11 07:39 | Outpatient (REF) | payer OTHER, SELFPAY ==
--- NOTE | ~2024-10-11 | US_ITS ---
CLINICAL HISTORY: R19.4 - Change in bowel habit US abdomen complete Comparison: None provided Findings: The visualized pancreas is normal. The aorta and inferior vena cava are normal caliber. The liver is normal in size and echotexture. 2 cm cyst noted within the left lobe. There is no intrahepatic bile duct dilatation. The common duct is 6 mm in diameter. The gallbladder demonstrates stones and sludge. Borderline wall thickening at 3 mm. There is no sonographic Pitt sign. The main portal vein is antegrade. The right kidney is 10.5 cm in length. Nonobstructing 4 mm midpole calculus. Multiple cysts, the largest measuring up to 2.7 cm. The left kidney is 10.0 cm in length. The spleen is normal. No ascites. IMPRESSION: Cholelithiasis with mild gallbladder wall thickening. No sonographic Pitt's. Nonobstructing right renal calculus. This document has been electronically signed by: Delbert Romero MD on 10/11/2024 22:59:47
--- OUTSIDE RECORDS SUMMARY | 2024-10-11 07:41 | XMS_ITS | Patient Health Record ---
Author Organization [facility] Address [address] [place] [address] Support Name Relationship Address Phone SAWYER MCGUIRE Guarantor Unknown [phone] Reason For Referral No Information Medications Medication SIG (Take, Route, Fr equency, Duration) Notes Start Date End Date Status miSOPROStol 200MCG 2 ORAL NIGHT BEFORE PROCEDURE for -3 Gordon-MJ 07/21/2011 Active Omeprazole 20MG 1 ORAL twice daily for -3 Gordon-MJ 07/21/19 12 Active Problems Problem Type SNOMED Code ICD Code Onset Dates Problem Status W/U Status Risk Notes Problem Asthma (disorder) (729862698) Asthma, unspecified, unspecified status (493.90) Active confirmed Major Problem Esophageal reflux (574937589) Esophageal reflux (530.81) Active confirmed Major Problem Dysplasia of cervix (02094844) Dysplasia of cervix, unspecified (622.10) Active confirmed Diag Problem Metrorrhagia (63113377) Metrorrhagia (626.6) Active confirmed Major Problem Abnormal vaginal bleeding (877448194) Other disorder of menstruation and other abnormal bleeding from female genital tract (626.8) Active confirmed Diag Problem Menopausal symptom (16431949) Symptomatic menopausal or female climacteric states (627.2) Active confirmed Major Problem Gynecological examination normal (784105882623029) Routine gynecological examination (V72.31) Active confirmed Major Problem Screening for malignant neoplasm of colon (514140757) Special screening for malignant neoplasms, colon (V76.51) Active confirmed Major Plan Of Treatment No Information Insurance Providers Payer Name Payer Address Payer Phone Subscriber Number Group Number Insured Name Patient Relationship to Insured Coverage Start Date Coverage End Date [facility] [address] [place] [address] [phone] [id number] JESUS MCGUIRE Spouse - patient is the spouse of the insured 2
== END 2024-10-11 07:40 | disposition home or self-care (01) ==
LOC: HO.US 07:39
PROVIDERS: PCP Nurse Practitioner Family; Visit Provider Internal Medicine
DX: R19.4 Change in bowel habit (principal)
CPT/HCPCS: 76700

== ENCOUNTER → 2024-10-11 07:41 | Outpatient (BNV) | payer OTHER, SELFPAY | PROVIDERS: PCP Nurse Practitioner Family; Visit Provider Radiology Vascular & Interventional Radiology | DX: K80.20 Calculus of gallbladder without cholecystitis without obstruction (principal); N20.0 Calculus of kidney | CPT/HCPCS: 76700 ==

== ENCOUNTER 2024-10-26 14:37 | Outpatient (AMB) | payer OTHER, SELFPAY ==
--- NOTE | 2024-10-26 14:53 | MHC.OFFVIS ---
Vital Signs 10/26/24 14:55 Height 5 ft 5 in Weight 132 lb 4.438 oz BMI 22.0 BP 112/71 Blood Pressure Location Lt brachial Position Sitting Pulse 75 Intake Visit Reasons: 8 wks change in bowel habits Intake Note: Essence presents in the office as a 8 week follow up. CC: She states that she is still having issues with her digestive symptom. She states that her bowel movements have changed. 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 Seen as video visit. Reports hx of loose stools since November. Goes once a day but stool is just soft and sticky. They sometimes float in the toilet bowl. Assoc with sensation of constant leakage and itching but when wipes does not see any fecal debris, just some mucus. Sometimes has rectal pressure and feels hemorrhoids prolapsing perhaps. Started calcium supplements around this time and wonders if this prompted the sx. 10/26/24: Patient is here for in person follow-up. Reports good response to fiber initially, but when she tried to switch to sugar free fiber, developed constipation instead of regular bowel movements. Otherwise, stools have more or less gone to baseline. Patient does not complain of any rectal pressure currently. Ultrasound results reviewed. She is up to date on colorectal cancer screening, opts for Cologuard. November 2023 Cologuard negative. [facility] Surgical History Hx of colonoscopy History of cone biopsy of cervix History of lymph node excision History of mastectomy, total History of breast reconstruction Family History Father Colon cancer Fall Substance use disorder Mother Arthritis Dementia Mental health disorder Brother Substance use disorder Paternal Uncle Substance use disorder Paternal Grandfather Substance use disorder Social History Housing: House Patient Tobacco Use Status: Never used Tobacco e-Cigarette/Vaping Use: Never Used Second Hand Smoke Exposure: No service: No Current occupational status: disabled Cognitive needs: No Hearing needs: No Vision needs: No Review of Systems Const All systems reviewed & are unremarkable except as noted in HPI and below Physical Exam Vital Signs: Last Vital Signs Pulse 75 10/26/24 14:55 BP 112/71 10/26/24 14:55 BMI result Body Mass Index 22.0 No apparent distress Nonicteric Abdomen soft, nondistended Rectal: ext hemorrhoids, internal hemorrhoids, no blood on gloved finger Alert and oriented x3, normal gait Results Reviewed Results Reviewed: US Abd 10/12/24: Cholelithiasis with mild gallbladder wall thickening. No sonographic Pitt's. Nonobstructing right renal calculus. Assessment & Plan Assessment & Plan (1) Change in bowel habit: Code(s): R19.4 - Change in bowel habit Category: Medical (2) Hemorrhoids: Code(s): K64.9 - Unspecified hemorrhoids Category: Medical (3) Cholelithiases: Code(s): K80.20 - Calculus of gallbladder without cholecystitis without obstruction Category: Medical (4) Encounter for colorectal cancer screening: Code(s): Z12.11 - Encounter for screening for malignant neoplasm of colon; Z12.12 - Encounter for screening for malignant neoplasm of rectum Category: Medical (5) Osteoporosis: Code(s): M81.0 - Age-related osteoporosis without current pathological fracture Category: Medical Plan 1. Change in bowel habits Reviewed that based on all the testing so far, appears could likely be secondary to symptomatic cholelithiasis. Patient reports previous history of biliary colic, but has not had overt postprandial abdominal pain in a long time now. Plan: - referral to surgery to discuss indication for cholecystectomy. 2. Hemorrhoids Currently asymptomatic. Reviewed avoidance of constipation and straining. Increase hydration, to avoid constipation with fiber supplementation. Patient is also an avid biker, but reports that she recently bought a comfortable seat to avoid aggravating hemorrhoids. Plan: - Cont fiber supplementation - avoid straining and constipation - Sitz baths - Can use topical steroid if develops pain, pressure or bleeding 3. CRC screening Cologuard NEGATIVE from 11/2023. Next screening due in 2026. Pt hesitant to pursue colo as has significant side effects from anesthesia post procedure. 4. Osteoporosis Incidentally noted on chart review. She follows with endocrine at [facility] but wonders if she can follow locally. Plan: -referral placed to [facility] endocrinology Follow up 1 year Orders: Referrals Endocrinology Referral M81.0 - Age-related osteoporosis without current pathological fracture General Surgery Referral K80.20 - Calculus of gallbladder without cholecystitis without obstruction Medications: New hydrocortisone 2.5% 1 appl MD BID-QID PRN 30 grams 0RF hemorrhoids Coding Level of Care Code Est Pt Level 4 (13973) Diagnoses Change in bowel habit R19.4 Hemorrhoids K64.9 Cholelithiases K80.20 Encounter for colorectal cancer screening Z12.11; Z12.12 Osteoporosis M81.0
[2024-10-26 14:55] VITALS: BP 112/71; PULSE 75; BMI 22.0
--- OUTSIDE RECORDS SUMMARY | 2024-10-26 15:09 | XMS_ITS | Clinical Summary ---
Author Organization [employer] Address [address] [place] [address] Care Team Providers Care Vinyl Installer Name Role Phone Unavailable Primary Care Provider [...] morning. Active ergocalciferol (Vitamin D2) 1.25 MG (11291 UT) capsule Take 1 capsule by mouth 1 (one) time per week. 07/01/2023 Active calcium carbonate (Os-Jarret) 1250 (500 Ca) MG chewable tablet Chew 1 tablet Once per day. Active Active Problems Problem Noted Date Diagnosed Date Asthma 09/13/2024 Abnormal vaginal bleeding 09/13/2024 Normal gynecologic examination 09/13/2024 Vitamin D deficiency 07/01/2023 Encounters Date Type Department Care Team Description 09/13/2024 2:00 PM EDT Office Visit [facility] [address] [place] [id number] Ajith Larsen DMD from Last 3 Months Social History Tobacco [...] Care Team (Late st Contact Info) Description 01/17/2025 1:00 PM EDT Office Visit [facility] [address] [place] [address] [id number] Elma Mcallister [address] [place], [place] [id number] Health Maintenance Due Date Last Done Comments CT Colonography 1961 Colonoscopy 1961 Depression Screening 1961 FIT 1961 FOBT 1961 HIV Screening 1961 SDOH Screening 1961 Sigmoidoscopy 1961 Disability Screening 1961 Alcohol/Substance Use Screening 1973 Hepatitis C [...] ( - season) 2023 Influenza Vaccine (#1) 2024 Dental Oral Exam 01/12/2025 07/11/2024, 05/2023, 07/15/2023, Additional history exists Dental Prophylaxis 01/12/2025 07/11/2024, 1 , 07/15/2023, Additional history exists Dental X-Ray: Bitewings 01/20/2025 01/20/2024, 11/12 Tobacco Screening 09/13/2025 09/13/2024 Dental X-Ray: Full Mouth 11/13/2025 11/12/2022 Colorectal [...] patient's age to complete this topic Meningococcal B Vaccine Aged Out No l onger eligible based on patient's age to complete [...] Procedure Name Priority Date/Time Associated Diagnosis Comments 4 MO RESIN-BASED COMPOSITE - 2 SURF, POSTERIOR Routine 09/13/2024 2:00 PM EDT PROPHYLAXIS - ADULT Routine 07/11/2024 4 :00 PM EDT PERIODIC ORAL EVALUATION - ESTABLISHED PATIENT Routine 07/11/2024 4:00 PM EDT BITEWINGS - 4 RADIOGRAPHIC IMAGES Routine 01/20/2024 8:00 AM EDT INTRAORAL - COMPLETE SERIES OF RADIOGRAPHIC IMAGES Routine 11/12/2022 8:00 AM EDT Encounter for dental examination from Last 3 Months or Most Recently Relevant to Health Maintenance Insurance [facility] MEDICAID STAND [facility]ULT [facility] D[facility] - [facility] PARTIAL (MEDICAID)
--- OUTSIDE RECORDS SUMMARY | 2024-10-26 15:09 | XMS_ITS | Patient Health Record ---
Author Organization [facility] Address [address] [place] [id number] Care Team Providers Care Valuer Name Role Phone Mikey Simmons Unavailable [phone] Reason For Referral No Information Plan Of Treatment No Information
== END 2024-10-26 15:44 | disposition home or self-care (01) ==
LOC: HO.HGI 14:38
PROVIDERS: PCP Nurse Practitioner Family; Visit Provider Internal Medicine
DX: R19.4 Change in bowel habit (principal); K64.9 Unspecified hemorrhoids; K80.20 Calculus of gallbladder without cholecystitis without obstruction; M81.0 Age-related osteoporosis without current pathological fracture
CPT/HCPCS: 99214

== ENCOUNTER → 2024-10-26 14:37 | Outpatient (BNVA) | payer OTHER, SELFPAY | PROVIDERS: PCP Nurse Practitioner Family; Visit Provider Internal Medicine | DX: R19.4 Change in bowel habit (principal); R19.7 Diarrhea, unspecified; K64.9 Unspecified hemorrhoids; K80.20 Calculus of gallbladder without cholecystitis without obstruction; Z12.11 Encounter for screening for malignant neoplasm of colon; Z12.12 Encounter for screening for malignant neoplasm of rectum; M81.0 Age-related osteoporosis without current pathological fracture | CPT/HCPCS: 99212 ==

== ENCOUNTER 2024-11-15 13:10 | Outpatient (REF) | payer OTHER, SELFPAY ==
--- NOTE | ~2024-11-15 | MM_ITS ---
EXAMINATION: DXA BONE DENSITY AXIAL HISTORY: M81.0 - Age-related osteoporosis without current pathological fracture TECHNIQUE: Bass Manager Dual energy absorptiometry (DEXA) of the lumbar spine, total left hip, and femoral neck was performed. COMPARISON: Comparison is made with the prior examination dated 11/13/2022. FINDINGS: The bone mineral density of the lumbar spine is 0.815 g/cm2, corresponding to a T-score of -3.0, and a Z-score of -1.4. This is indicative of osteoporosis. This represents a BMD change of -4.5% compared to the prior exam. This is statistically significant. The bone mineral density of the left total hip is 0.681 g/cm2, corresponding to a T-score of -2.6, and a Z-score of -1.3. This is indicative of osteoporosis. This represents a BMD change of 6.4% compared to the prior exam. This is statistically significant. The bone mineral density of the left femoral neck is 0.606 g/cm2, corresponding to a T-score of -3.1, and a Z-score of -1.6. This is indicative of osteoporosis. This represents a BMD change of 2.2% compared to the prior exam. FRACTURE RISK: The FRAX index suggests a ten year probability of major osteoporotic fracture of 20.5%, and of hip fracture 7.0%. MM/XR DEXA axial skeleton IMPRESSION: Based on bone mineral density, and according to World Health Organization (WHO) criteria, the diagnosis is consistent with osteoporosis. Statistically, 68% of repeat scans fall within 1 SD (+/- 0.010 g/cm2 for AP spine L1-L4) and 1 SD (+/- 0.012 g/cm2 for femur total) FRAX is a trademark of the [employer]'s [employer] for Metabolic Bone Disease, a World Health Organization (WHO) Collaborating Center. Electronically signed by: Mikey Parikh MD 11/15/2024 01:37 PM EDT
--- OUTSIDE RECORDS SUMMARY | 2024-11-15 13:57 | XMS_ITS | Clinical Summary ---
Author Organization [facility] Address [address] [address] Phone Care Team Providers Care Systems Checkout Mechanic Name Role Phone Francisco Mendez NP Primary Care Provider + Allergies Active Allergy Reactions Criticality Noted Date Comments Opioids - Morphine Analogues Nausea and/or Vomiting 10/09/2014 Sulfa (Sulfonamide Antibiotics) Rash Low 10/09/2014 Medications atorvastatin (LIPITOR) 10 MG tablet Take 10 mg by mouth every other day. 05/26/2022 Active ezetimibe (ZETIA) 10 mg tablet Take 10 mg by mouth daily. Active cholecalciferol (VITAMIN D3) 2,000 unit tablet Take 2,000 Units by mouth daily. Active omeprazole (PRILOSEC) 20 MG capsule Take 20 mg by mouth daily. Active raloxifene (EVISTA) 60 mg tabletIndications :Other osteoporosis without current pathological fracture Take 1 tablet (60 mg total) by mouth daily. 90 tablet 3 09/30/2023 Active Active Problems Problem Noted Date Diagnosed Date Vitamin D deficiency 07/01/2023 Assessment & Plan (09/30/2023 4:18 PM EDT): Vitamin D level is now replete after ergocalciferol she should maintain on cholecalciferol 2000 units daily. Assessment & Plan (07/01/2023 4:08 PM EDT): Vitamin D levels deficient at 25 ng/mL. I will prescribe ergocalciferol 50,000 units for a period of 12 weeks. She will repeat vitamin D level in 3 months time. Then she should continue maintenance therapy with cholecalciferol 2000 units daily. Other osteoporosis without current pathological fracture 04/29/2023 Assessment & Plan (09/30/2023 4:34 PM EDT): The patient should continue vitamin D and dietary calcium intake at least 1200 mg daily she will benefit from antiresorptive medication previously discussed the use of zoledronic acid since she could not tolerate alendronate in the past. Furthermore Prolia is not very effective at the hip and this is where she has the lowest bone mineral density. Today I reviewed again antiresorptive medications with the patient including zoledronic acid I explained how this is administered. She is concerned about possible adverse effects specifically the flulike symptoms. She feels that she most likely will develop the symptoms. With Prolia administration is also subcutaneous injection every 6 months meaning that it acts alf. Some people develop bone pain but this is usually after the infusion. There really not many adverse effects that people report in my experience with this medication. She cannot use estrogen supplementation because of her history of breast carcinoma. I discussed the use of raloxifene which is Evista and is not associated with breast carcinoma. Raloxifene is a weak medication for bone mineral density buildup but if she does not want to use any of the antiresorptive medications this is an option. 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 I am going to give further information on the antiresorptive medications again. She states that she never received it but this is given to her on checkout. I asked her to make sure that she receives it. The patient cannot use anabolic hormones such as Forteo and Tymlos because of her history of radiation therapy. At this point I will prescribe raloxifene/Evista. She is due for repeat DXA scan at [facility] on 11/13/2024 I will request this study. Assessment & Plan (07/01/2023 4:42 PM EDT): In addition to the risk factors listed in the HPI she was found to be vitamin D deficient. At this point I informed the patient that she cannot be treated with antiresorptive medication since her vitamin D levels are replete. I have given her information on antiresorptive medications. She could not tolerate alendronate. So the only 2 that she could use is Prolia and zoledronic acid. As for Prolia I am not recommending it because is not very effective in the hip and her bone mineral density is worse at the hip. So I recommend zoledronic acid infusion once a year. This can be used for period of up to 3 years. At 3 years time we will reevaluate based on bone mineral density studies. If there is no improvement or worsening bone mineral density zoledronic acid can be repeated for another 3 years so she can be switched to another medication such as Prolia. I also discussed with her anabolic hormones but these will not be approved by her insurance because she has not tried the antiresorptive medications first. I described Forteo/Tymlos and Evenity and how they are administer. The other issue is that I do not have the 24-hour urine calcium output. So I do not know if she is deficient with calcium intake. She cannot take calcium supplements due to abdominal pain. So I suspect that she may be calcium deficient. I gave her a handout on dietary calcium supplements. So she will have to try to get at least 1200 mg of calcium. I can order a repeat 24-hour urine calcium output to be done in the future but she really does not want to do this. And we may not have to do it if the 24-hour urine calcium output is in the reference range. But unfortunately I do not have the information. Our staff has contacted lab to get this information. They initially sent us the wrong information and we contacted them again but we have not received labs and the patient has been here for like an hour and 15 minutes at this point. So I asked her to contact me just leave a message on the answering machine or get the patient portal and contact me directly and I will get back to her in terms of the 24-hour urine calcium output. Assessment & Plan (04/29/2023 4:28 PM EST): The patient was diagnosed with osteoporosis in October 2022 but this has not been confirmed since I did not receive a DXA scan report. This has been requested. Her risk factors for osteoporosis include age, menopause, use of cytotoxic agents, corticosteroids, proton pump inhibitors. She has had approximately 2 inch decrease in height. She has not had any fractures. If she has GERD and was not able to tolerate alendronate which was prescribed. Currently not taking any calcium or vitamin D supplements at this point I will request biochemical workup for secondary causes of osteoporosis. Family History Medical History Relation Comments Cancer Father 2 Relation Status Comments Father 1 Father 2 Social History Tobacco Use Types Packs/Day Years Used Date Smoking Tobacco: Never Smokeless Tobacco: Never Tobacco Cessation:Counseling Given: Not Answered Alcohol Use Standard Drinks/Week Comments Yes 0 (1 standard drink = 0.6 oz pur e alcohol) occasional Education Answer Date Recorded Are you interested in more education? Not on willam e 08/15/2022 Are you concerned about learning? Not on file 08/15/2022 No 08/15/2022 No 08/15/2022 Digital Access Answer Date Recorded No 09/15/2022 No 09/15/2022 Reliable internet access at home? Not on file 09/15/2022 Device with a working camera? Not on file Comments Unknown Sex and Gender Information Value Date Recorded Sex Assigned at Not on file Legal Sex Female 10:14 AM EDT Gender Identity Not on file Sexual Orientation Not on file Last Filed Vital Signs Vital Sign Reading Time Taken Comments Blood Pressure 112/78 09/30/2023 4:06 PM EDT Pulse 70 09/30/2023 4:06 PM EDT Temperature 36.4 C (97.6 F) 07/01/2023 3:45 PM EDT Respiratory Rate - - Oxygen Saturation 99% 09/30/2023 4:06 PM EDT Inhaled Oxygen Concentration - - Weight 59.4 kg (131 lb) 09/30/2023 4:06 PM EDT Height 163.6 cm (5' 4.4 ) 09/30/2023 4:06 PM EDT Body Mass Index 22.21 09/30/2023 4:06 PM EDT Plan of Treatment Health Maintenance Due Date Last Done Comments Adult Td,Tdap Booster 1961 LIPID PANEL 1961 DEPRESSION SCREENING 1973 HEPATITIS C SCREENING 1979 HIV ONE-TIME SCREENING (18-6 5 YEARS) 1979 COLOGUARD 2006 COLONOSCOPY 2006 COLORECTAL CANCER SCREENING 2006 FIT TEST 2006 FOBT 2006 SIGMOIDOSCOPY 2006 VIRTUAL COLONOSCOPY 2006 PNEUMOCOCCAL VACCINES (50+ y ears) (1 of 1 - PCV) 2011 ZOSTER VACCINES (1 of 2) 2011 PAP SMEAR 04/27/2017 04/27/2014 MAMMOGRAM 07/05/2017 07/06/2015 COVID-19 VACCINE (2 - 2023-2 5 season) 2023 07/28/2020 RSV VACCINE (1 - 1-dose 75+ series) 02/28/2036 SMOKING STATUS SCREENING (On ce After 26 Yrs) Completed 09/30/2023 HEPATITIS A VACCINES Aged Out No long er eligible based on patient's age to complete this topic HIB VACCINES Aged Out No longer eligi ble based on patient's age to complete this topic MENINGOCOCCAL VACCINES (ACWY) Aged Out No longer eligible based on patient's age to complete this topic MENINGOCOCCAL VACCINES (B) Aged Out N o longer eligible based on patient's age to complete this topic Medical Devices Not on file Insurance G [facility]CP [facility] NON NSPG PCP [facility] [employer] NON NSPG PCP [facility] [employer] NON NSPG PCP S[facility] [employer] NON NSPG PCP S[facility] NON NSPG [facility]CP [facility] Care Teams Systems Checkout Mechanic Relationship Specialty Start Date End Date Francisco Mendez NP [address] [place] [address] [email or web address] PCP - General Nurse Practitioner 07/01/23 Additional Source Comments The information contained in this document represents components of the legal health record. It is not the complete legal health record.[facility]
--- OUTSIDE RECORDS SUMMARY | 2024-11-15 13:58 | XMS_ITS | Patient Health Record ---
Author Organization [facility] Address [address] [place] [id number] Care Team Providers Care Back Line Cook Name Role Phone Mikey Simmons Unavailable [phone] Reason For Referral No Information Plan Of Treatment No Information
--- OUTSIDE RECORDS SUMMARY | 2024-11-15 13:58 | XMS_ITS | Clinical Summary ---
Author Organization [employer] Address [address] [place] [address] Care Team Providers Care Backup Administrator Name Role Phone Unavailable Primary Care Provider [...] morning. Active ergocalciferol (Vitamin D2) 1.25 MG (45787 UT) capsule Take 1 capsule by mouth [...] PM EDT Office Visit [facility] [address] [place] [id number] Ajith Larsen DMD from Last 3 Months [...] PM EDT Office Visit [facility] [address] [place] [address] [phone] Elma Mcallister [address] [place], [place] [phone] Health Maintenance Due Date Last Done Comments CT Colonography 1961 Colonoscopy 1961 Depression Screening 1961 FIT 1961 HIV Screening 1961 SDOH Screening 1961 [...] 2021 COVID-19 Vaccine ( - season) 2023 FOBT 12/04/2024 12/05/2023, 06/11/2020 Influenza Vaccine (#1) 2024 Dental Oral Exam [...] Most Recently Relevant to Health Maintenance Insurance [facility]ID STAND AD[place] [facility] - HSN PARTIAL (MEDICAID)
--- OUTSIDE RECORDS SUMMARY | 2024-11-15 13:58 | XMS_ITS | Patient Health Record ---
Author Organization [facility] Address [address] [place] [address] Support Name Relationship Address Phone SHAYLA SAWYER Guarantor Unknown [phone] Reason For Referral No Information Medications Medication SIG (Take, Route, Fr equency, Duration) Notes Start Date End Date Status miSOPROStol 200MCG 2 ORAL NIGHT BEFORE PROCEDURE; Duration: -3 Gordon-MJ 07/21/2011 Active Omeprazole 20MG 1 ORAL twice daily; Duration: -3 Gordon-MJ 0 07/21/2011 Active Problems Problem Type SNOMED Code ICD Code Onset Dates Problem Status W/U Status Risk Notes Problem Asthma (disorder) (923401422) Asthma, unspecified, unspecified status (493.90) Active confirmed Major Problem Esophageal reflux (448772811) Esophageal reflux (530.81) Active confirmed Major Problem Dysplasia of cervix (51567892) Dysplasia of cervix, unspecified (622.10) Active confirmed Diag Problem Metrorrhagia (55734651) Metrorrhagia (626.6) Active confirmed Major Problem Abnormal vaginal bleeding (835023153) Other disorder of menstruation and other abnormal bleeding from female genital tract (626.8) Active confirmed Diag Problem Menopausal symptom (92810529) Symptomatic menopausal or female climacteric states (627.2) Active confirmed Major Problem Gynecological examination normal (675447929697624) Routine gynecological examination (V72.31) Active confirmed Major Problem Screening for malignant neoplasm of colon (881956348) Special screening for malignant neoplasms, colon (V76.51) Active confirmed Major Plan Of Treatment No Information Insurance Providers Payer Name Payer Address Payer Phone Subscriber Number Group Number Insured Name Patient Relationship to Insured Coverage Start Date Coverage End Date [facility] [address] [place] [address] [id number] JESUS MCGUIRE Spouse - patient is the spouse of the insured 2
== END 2024-11-15 13:11 | disposition home or self-care (01) ==
LOC: HO.MAMMO 13:10
PROVIDERS: PCP Nurse Practitioner Family; Visit Provider Nurse Practitioner Family
DX: M81.0 Age-related osteoporosis without current pathological fracture (principal)
CPT/HCPCS: 77080

== ENCOUNTER → 2024-11-15 13:30 | Outpatient (BNV) | payer OTHER, SELFPAY | PROVIDERS: PCP Nurse Practitioner Family; Visit Provider Radiology Diagnostic Radiology | DX: E28.39 Other primary ovarian failure (principal) | CPT/HCPCS: 77080 ==

== ENCOUNTER 2024-12-26 14:39 | Outpatient (AMB) | payer OTHER, SELFPAY ==
[2024-12-26 14:44] VITALS: BP 118/82; PULSE 77; O2SAT 97; BMI 22.1
--- NOTE | 2024-12-26 14:44 | A.OFFVIS_ITS ---
Vital Signs 12/26/24 14:44 Height 5 ft 5 in Weight 132 lb 11.492 oz BMI 22.1 BP 118/82 Blood Pressure Location Lt brachial Position Sitting Pulse 77 Pulse Source Pulse Oximeter Pulse Oximetry (%) 97 Oxygen Delivery Method Room Air Intake Visit Reasons: Age-related osteoporosis without current pathologi Intake Note: New patient present today for Age-related osteoporosis without current pathology. Battery Charger Tester Required: No Accompanied by: Self / Same As Patient Allergies Sulfa (Sulfonamide Antibiotics) (SULFA (SULFONAMIDE ANTIBIOTICS)) Allergy (Intermediate, Verified 12/26/24 14:49) RASH opioids Allergy (Unknown, Uncoded 12/26/24 14:49) unknown Medication List - Last Reconciled 12/26/24 by Yun Altamirano MD atorvastatin 20 mg PO DAILY 90 days calcium carbonate-vitamin D3 600 mg-12.5 mcg (500 unit) (Calcium with Vit D3) 1 cap PO BID 90 days cholecalciferol (vitamin D3) 50 mcg PO DAILY hydrocortisone 2.5% 1 appl ME BID-QID PRN lorazepam 0.5 mg PO DAILY PRN 30 days omeprazole 20 mg PO DAILY HPI Comments Details: 64 years old female coming in today for initial evaluation of osteoporosis. Was previously seeing Dr. Blanca in [facility] , last appt 2023? Bone density scan 11/15/2024 showed osteoporosis of the lumbar spine with T-score of-3, with a decrease of 4.5% compared to bone density in 2022. Osteoporosis of the left total hip with T-score of-2.6 with a an increase of 6.4% compared to prior bone density in 2022. Osteoporosis of the left femoral neck with T-score of -3.1 with a an increase of 2.2% compared to prior bone density. FRAX for major osteoporotic fracture 20.5%, hip fracture 7%. Osteoporosis new pt evaluation Post menopausal osteoporosis: Diagnosed in 2022 Fracture History: none Height loss: thinks she was closer to 5'6 now 5' 5 Back pain: none Pharmacotherapeutic hx: Fosamax 2022, for 3 weeks , started having headaches, stomach pains, acid reflux. 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 used to see Dr. sherwood at [facility] , currently not following Heparin Use: Neg History of eating disorder: Negative long-term immobilization: Negative History of kidney stones or disease: yes per abd US right kidney 4 mm 10/12, and passed one summer 2023 per patient PI Use: takes omeprazole for many years daily Chronic inflammatory lung disease: Negative Chronic inflammatory bowel disease: Negative Daily calcium intake: citracal only once daily 350 mg of calcium, milk : none , cheese: a slice of cheese daily, yogurt: 3 times a week, green leafy vegeatbles all the time Vitamin D intake: 500 units in citracal plus D3 plus 2500 units daily Exercise:walks a mile and a quarter daily , very active in the house, rides bike Smoking history:never Dental: Has regular dental cleaning, no issues Physical exam General: sitting comfortably in no acute distress HEENT: normocephalic/atraumatic, Neck: supple, Cardiac: normal heart sounds Pulm: normal breath sounds B/L, no added breath sounds Abd: not distended, Laboratory Tests 05/14/23 05/14/23 05/18/23 06:30 07:04 07:54 Creatinine 0.89 Estimated GFR > 60 Calcium 9.4 Total Protein 7.1 Total Protein (PEP) 6.8 Albumin 4.2 Albumin (PEP) 4.3 Qwzbf-7-Tlgkjpdlg 0.3 Huimz-8-Vklhpeefl 0.7 Otjr-7-Bjctrlzi 0.4 Nmmy-4-Hdjrjibf 0.3 Gamma Globulins 1.0 Collgn I C-Telopeptide 209 25-OH Vitamin D Total 25.0 L TSH 3.64 PTH Intact 76.5 Ur 24 Hour Volume 1500 Ur Creatinine mg/dL 69.18 Ur Creatinine 24 Hour 1.0 Ur Calcium 24 Hr 75 Calcium/Creat 24 Hr 68 Laboratory Tests 08/27/24 09/05/24 10/01/24 07:23 06:26 09:04 Creatinine 0.87 Estimated GFR > 60 Calcium 9.2 Alkaline Phosphatase 46 Albumin 4.1 25-OH Vitamin D Total 38.5 41.0 TSH 3.22 IgG 1084 IgA 185 Tiss Transglutamin IgA <1.0 Thyroid Peroxidase Ab 5 PFSH Surgical History Hx of colonoscopy History of cone biopsy of cervix History of lymph node excision History of mastectomy, total History of breast reconstruction Family History Father Colon cancer Fall Substance use disorder Mother Arthritis Dementia Mental health disorder Brother Substance use disorder Paternal Uncle Substance use disorder Paternal Grandfather Substance use disorder Social History Housing: House Patient Tobacco Use Status: Never used Tobacco e-Cigarette/Vaping Use: Never Used Second Hand Smoke Exposure: No service: No Current occupational status: disabled Cognitive needs: No Hearing needs: No Vision needs: No Physical Exam Vital Signs: Last Vital Signs Pulse 77 12/26/24 14:44 BP 118/82 12/26/24 14:44 Pulse Ox 97 12/26/24 14:44 Oxygen Delivery Method Room Air 12/26/24 14:44 BMI result Body Mass Index 22.1 Assessment & Plan Assessment & Plan (1) Osteoporosis: Code(s): M81.0 - Age-related osteoporosis without current pathological fracture Category: Medical Qualifiers: Osteoporosis type: age-related Presence of current pathological fracture: without current pathological fracture Qualified Code(s): M81.0 - Age- related osteoporosis without current pathological fracture Plan: 64-year-old female coming in today for initial evaluation of osteoporosis. Diagnosed with osteoporosis in 2022, she was on Fosamax for 3 weeks in 2022 which resulted in worsening of her acid reflux. Bone density scan 11/15/2024 showed osteoporosis of the lumbar spine with T-score of-3, with a decrease of 4.5% compared to bone density in 2022. Osteoporosis of the left total hip with T-score of-2.6 with a an increase of 6.4% compared to prior bone density in 2022. Osteoporosis of the left femoral neck with T-score of -3.1 with a an increase of 2.2% compared to prior bone density. FRAX for major osteoporotic fracture 20.5%, hip fracture 7%. Risk factors for osteoporosis include age, being postmenopausal, rheumatoid arthritis, chronic PPI use, Secondary workup from April 2023 was unremarkable with normal 24 hour urine calcium levels, normal calcium, PTH, SPEP, thyroid function, vitamin-D levels I discussed conservative measures including adequate calcium intake, adequate vitamin D levels as well as the role of weightbearing exercises in general being good for bone health. In addition to conservative management with calcium and vitamin D; I do believe she would benefit from antiresorptive therapy in terms of reducing future fracture risk. Today we discussed the options of Reclast. Would stay away from oral bisphosphonates given history of reflux. also discussed the option of Prolia I counseled regarding the mechanism of action, route of administration, common side effects as well as black box warnings particularly osteonecrosis of the jaw and atypical femur fracture. At this time patient is not interested in any osteoporosis medications because she is very apprehensive of of the side effects. I gave her information of the names of the medications to consider and read up on. If she becomes interested in therapy she will call back the office and let us know. At this time she would like to continue conservative management. Her PCP can repeat her bone density in 2 years from the last 1 and if worsening then she can be referred back to us. Plan: -consider osteoporosis medications Reclast and Prolia, patient will call us back if interested -continue vitamin-D 2500 units daily -maintain calcium intake to 1000 mg daily -primary care can repeat bone density in October 2026 and if worsening findings with the patient interested in therapy can be referred back to us Plan I spent 45 minutes in reviewing the record, seeing the patient and documenting in the medical record. Patient Instructions: If you are interested in Prolia (denosumab ) every 6 months injection or Reclast (Zoledronic acid )once yearly infusion , please call the office and make an appointment for follow up [email or web address] continue current vitamin D supplements Maintain good nutritional intake of calcium Your primary care can repeat your bone density in October 2026 , and if worsening findings can be referred back to us Coding Level of Care Code New Pt Level 4 (60209) Diagnoses Age-related osteoporosis without current pathological fracture M81.0 Osteoporosis type: age-related Presence of current pathological fracture: without current pathological fracture Time Spent (min) 45
--- OUTSIDE RECORDS SUMMARY | 2024-12-26 17:01 | XMS_ITS | Clinical Summary ---
Author Organization [facility] Address [address] [address] Phone Care Team Providers Care Engineer And Geologist Name Role Phone Francisco Mendez COMPETITIVE INTELLIGENCE ANALYST Primary Care Provider + Allergies Active Allergy [...] every 6 months meaning that it acts [facility]. Some people develop bone pain but this [...] think she has to speak to her geospatial analyst maybe someone else. I am going to [...] is due for repeat DXA scan at [facility] on 11/13/2024 I will request this study. [...] 2006 VIRTUAL COLONOSCOPY 2006 PNEUMOCOCCAL VACCINES (50+ years) (1 of 1 - PCV) 2011 ZOSTER VACCINES (1 of 2) 2011 PAP SMEAR 04/27/2017 04/27/2014 MAMMOGRAM 07/05/2017 07/06/2015 COVID-19 VACCINE (2 - 2023-2 5 season) 2023 07/28/2020 INFLUENZA VACCINE (#1) 2024 6, 01/17/2014, 02/02/2013 RSV VACCINE (1 - 1-dose 75+ series) [...] topic Medical Devices Not on file [place] [address] [facility] CONNECTORCARE [facility] NON NSPG PCP [place] [facility] CONNECTORCARE [facility] NON NSPG PCP SILVER CLARITY CONNECTORCARE WELLSENSE NON NSPG PCP S[place]VER CLARITY CONNECTORCARE WE[employer] NON NSPG PCP SILVER CLARITY CONNECTORCARE [facility] NON NSPG PCP [place] [facility] Care Teams Engineer And Geologist Relationship Specialty Start Date End Date Francisco Mendez NP [address] [facility] [place] [address] PCP - General Nurse Practitioner 07/01/23 Additional Source Comments The information contained in this document represents components of the legal health record. It is not the complete legal health record.[facility]
--- OUTSIDE RECORDS SUMMARY | 2024-12-26 17:01 | XMS_ITS | Patient Health Record ---
Author Organization [facility] Address [address] [facility] [address] [place] [address] Support Name Relationship Address Phone SHAYLA SAWYER Guarantor Unknown [phone] Reason For Referral No Information Medications Medication SIG (Take, Route, Fr equency, Duration) Notes Start Date End Date Status miSOPROStol 200MCG 2 ORAL NIGHT BEFORE PROCEDURE; Duration: -3 Gordon-MJ 07/21/2011 Active Omeprazole 20MG 1 ORAL twice daily; Duration: -3 Gordon-MJ 0 07/21/2011 Active Problems Problem Type SNOMED Code ICD Code Onset Dates Problem Status W/U Status Risk Notes Problem Asthma (disorder) (049262892) Asthma, unspecified, unspecified status (493.90) Active confirmed Major Problem Esophageal reflux (926657247) Esophageal reflux (530.81) Active confirmed Major Problem Dysplasia of cervix (31889574) Dysplasia of cervix, unspecified (622.10) Active confirmed Diag Problem Metrorrhagia (91700147) Metrorrhagia (626.6) Active confirmed Major Problem Abnormal vaginal bleeding (569110904) Other disorder of menstruation and other abnormal bleeding from female genital tract (626.8) Active confirmed Diag Problem Menopausal symptom (15293891) Symptomatic menopausal or female climacteric states (627.2) Active confirmed Major Problem Gynecological examination normal (489461127702994) Routine gynecological examination (V72.31) Active confirmed Major Problem Screening for malignant neoplasm of colon (781433769) Special screening for malignant neoplasms, colon (V76.51) Active confirmed Major Plan Of Treatment No Information Insurance Providers Payer Name Payer Address Payer Phone Subscriber Number Group Number Insured Name Patient Relationship to Insured Coverage Start Date Coverage End Date [facility] [address] [place] [address] [id number] JESUS MCGUIRE Spouse - patient is the spouse of the insured 2
--- OUTSIDE RECORDS SUMMARY | 2024-12-26 17:01 | XMS_ITS | Clinical Summary ---
Author Organization [employer] Address [address] [facility] 7[address] [place] [address] Care Team Providers Care Health Counselor Name Role Phone Unavailable Primary Care Provider [...] morning. Active ergocalciferol (Vitamin D2) 1.25 MG (02926 UT) capsule Take 1 capsule by mouth 1 (one) time per week. 07/01/2023 Active calcium carbonate (Os-Jarret) 1250 (500 Ca) MG chewable tablet Chew 1 tablet Once per day. Active Active Problems Problem Noted Date Diagnosed Date Asthma 09/13/2024 Abnormal vaginal bleeding 09/13/2024 Normal gynecologic examination 09/13/2024 Vitamin D deficiency 07/01/2023 Social History Tobacco Use Types Packs/Day Years [...] Description 01/17/2025 1:00 PM EDT Office Visit [facility] [address] [place] [address] [phone] Elma Mcallister [address] [place], [place] [phone] Health Maintenance Due Date Last Done Comments [...] - Risk 60-74 years 1-dose series) 2021 FOBT 12/04/2024 12/05/2023, 06/11/2020 COVID-19 Vaccine ( - season) 2024 Influenza Vaccine (#1) 2024 Dental Oral Exam [...] Most Recently Relevant to Health Maintenance Insurance [employer] [facility] MED[facility] STAND ADULT [facility] DENT[facility] - HSN PARTIAL (MEDICAID)
--- OUTSIDE RECORDS SUMMARY | 2024-12-26 17:01 | XMS_ITS | Patient Health Record ---
Author Organization [facility] Address [address] [place] [address] Care Team Providers Care Supervisor Compressed Yeast Name Role Phone Mikey Simmons Unavailable [phone] Reason For Referral No Information Plan Of Treatment No Information
== END 2024-12-26 15:27 | disposition home or self-care (01) ==
LOC: HO.ENCR 14:40
PROVIDERS: PCP Nurse Practitioner Family; Visit Provider Student in an Organized Health Care Education/Training Program
DX: M81.0 Age-related osteoporosis without current pathological fracture (principal)
CPT/HCPCS: 99204

== ENCOUNTER → 2024-12-26 14:39 | Outpatient (BNVA) | payer OTHER, SELFPAY | PROVIDERS: PCP Nurse Practitioner Family; Visit Provider Student in an Organized Health Care Education/Training Program | DX: M81.0 Age-related osteoporosis without current pathological fracture (principal) | CPT/HCPCS: 99202 ==

== ENCOUNTER 2025-01-12 08:49 | Outpatient (AMB) | payer OTHER, SELFPAY ==
--- NOTE | 2025-01-12 08:54 | MHC.OFFVIS ---
Vital Signs 01/12/25 08:58 Height 5 ft 5 in Weight 132 lb 11.492 oz BMI 22.1 Intake Visit Reasons: Calculus of gallbladder Intake Note: This patient was referred by Dr. Yoder for an assessment for calculus of gallbladder. Pt c/o; reports no RUQ pain, reports no nausea or vomiting, reports good appetite. DI: 10/11/2024- Abd US 11/15/2024- Bone density Dried Fruit Washer Required: No Accompanied by: Self / Same As Patient Allergies Sulfa (Sulfonamide Antibiotics) (SULFA (SULFONAMIDE ANTIBIOTICS)) Allergy (Intermediate, Verified 01/12/25 08:59) RASH opioids Allergy (Unknown, Uncoded 01/12/25 08:59) unknown Medication List - Last Reconciled 01/12/25 by Ahmet Day MD atorvastatin 20 mg PO DAILY 90 days calcium carbonate-vitamin D3 600 mg-12.5 mcg (500 unit) (Calcium with Vit D3) 1 cap PO BID 90 days cholecalciferol (vitamin D3) 50 mcg PO DAILY hydrocortisone 2.5% 1 appl GA BID-QID PRN lorazepam 0.5 mg PO DAILY PRN 30 days omeprazole 20 mg PO DAILY HPI HPI Calculus of gallbladder: Details: [age] year old female referred for gallstones. She says that she has known she had gallstones for over 20 years. She says she was told 20 years ago that she should have cholecystectomy. She describes periodic epigastric pain. She does note that she has GERD as well. She feels that her gallstones are contributory to her periodic abdominal pain and want to proceed with cholecystectomy. She says that she has been thinking about it for so many years. She had an ultrasound last September, done for some changes in her bowel habits and was noted to have gallstones. She says he is healthy overall and is very active. She did have right mastectomy and sentinel biopsy for breast cancer in 2014. [facility] Surgical History Hx of colonoscopy History of cone biopsy of cervix History of lymph node excision History of mastectomy, total History of breast reconstruction Family History Father Colon cancer Fall Substance use disorder Mother Arthritis Dementia Mental health disorder Brother Substance use disorder Paternal Uncle Substance use disorder Paternal Grandfather Substance use disorder Social History Housing: House Patient Tobacco Use Status: Never used Tobacco e-Cigarette/Vaping Use: Never Used Second Hand Smoke Exposure: No service: No Current occupational status: disabled Cognitive needs: No Hearing needs: No Vision needs: No Review of Systems Const Denies chills and Denies fever(s) Card Denies chest pain, Denies dyspnea and Denies dyspnea on exertion Resp Denies cough, Denies dyspnea and Denies dyspnea on exertion GI Details: Reflux symptoms Denies hematochezia and Denies change in bowel habits Denies hematuria Musc Denies back pain and Denies limited range of motion Neuro Denies focal weakness and Denies convulsions Psych Denies depression and Denies mood swings Physical Exam Vital Signs: BMI result Body Mass Index 22.1 Const General: comfortable and no acute distress Orientation/consciousness: patient oriented x3 Neck Neck: Yes no lymphadenopathy Resp Auscultation: clear to auscultation bilaterally Cardio Rhythm: regular rhythm GI Palpation (GI): Soft to palpation, nontender and no guarding Neuro General: patient oriented x3 Assessment & Plan Assessment & Plan (1) Gallstones: Code(s): K80.20 - Calculus of gallbladder without cholecystitis without obstruction Category: Medical Plan: She describes a long history of chronic epigastric pain. She has known gallstones for over 20 years and now wants to proceed cholecystectomy because of her symptoms of epigastric pain. I explained to her the technique of laparoscopic cholecystectomy and possible open cholecystectomy. I reviewed the risks including but not limited to bleeding, infections, injury to other organs including bowel, liver and the bile ducts, bile leak, retained stones, as well as the benefits and alternatives. She understands that her reflux symptoms may not resolve with cholecystectomy She says she is fully understanding of the above and would like to proceed with laparoscopic cholecystectomy. Coding Level of Care Code New Pt Level 3 (67557) Diagnoses Gallstones K80.20
[2025-01-12 08:58] VITALS: BMI 22.1
--- OUTSIDE RECORDS SUMMARY | 2025-01-12 09:25 | XMS_ITS | Patient Health Record ---
Author Organization [facility] Address [address] [facility] [address] [place] [address] Support Name Relationship Address Phone SHAYLA SAWYER Guarantor Unknown [phone] Reason For Referral No Information Medications Medication SIG (Take, Route, Fr equency, Duration) Notes Start Date End Date Status miSOPROStol 200MCG 2 ORAL NIGHT BEFORE PROCEDURE; Duration: -3 Gordon-MJ 07/21/2011 Active Omeprazole 20MG 1 ORAL twice daily; Duration: -3 Gordon-MJ 0 07/21/2011 Active Problems Problem Type SNOMED Code ICD Code Onset Dates Problem Status W/U Status Risk Notes Problem Asthma (disorder) (755815903) Asthma, unspecified, unspecified status (493.90) Active confirmed Major Problem Esophageal reflux (022013725) Esophageal reflux (530.81) Active confirmed Major Problem Dysplasia of cervix (38181016) Dysplasia of cervix, unspecified (622.10) Active confirmed Diag Problem Metrorrhagia (46502375) Metrorrhagia (626.6) Active confirmed Major Problem Abnormal vaginal bleeding (634119540) Other disorder of menstruation and other abnormal bleeding from female genital tract (626.8) Active confirmed Diag Problem Menopausal symptom (00304927) Symptomatic menopausal or female climacteric states (627.2) Active confirmed Major Problem Gynecological examination normal (547549706779471) Routine gynecological examination (V72.31) Active confirmed Major Problem Screening for malignant neoplasm of colon (254143420) Special screening for malignant neoplasms, colon (V76.51) Active confirmed Major Plan Of Treatment No Information Insurance Providers Payer Name Payer Address Payer Phone Subscriber Number Group Number Insured Name Patient Relationship to Insured Coverage Start Date Coverage End Date [facility] [address] [place] [address] [phone] [id number] JESUS MCGUIRE Spouse - patient is the spouse of the insured 2
--- OUTSIDE RECORDS SUMMARY | 2025-01-12 09:25 | XMS_ITS | Clinical Summary ---
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 Some people develop bone pain but this [...] think she has to speak to her catcher plug maybe someone else. I am going to [...] is due for repeat DXA scan at [facility] on 11/13/2024 I will request this [...] PAP SMEAR 04/27/2017 04/27/2014 MAMMOGRAM 07/05/2017 07/06/2015 INFLUENZA VACCINE (#1) 2024 6, 01/17/2014, 02/02/2013 COVID-19 VACCINE (2 - 2024-2 6 season) 2024 07/28/2020 RSV VACCINE (1 - 1-dose 75+ [...] topic Medical Devices Not on [place] [address] [place] [address] [facility] CONNECTORCARE [facility] NON NSPG PCP [place] [facility] CONNECTORCARE [employer] NON NSPG PCP [place] CONNECTORCARE [employer] NON NSPG PCP S[place] CONNECTORCARE [employer] NON NSPG PCP S[place] CONNECTORCARE [facility] NON NSPG PCP [place] [facility] Care Teams Cook Box Filler Relationship Specialty Start Date End Date Francisco Mendez NP [address] [facility] [place] [address] PCP - General Nurse Practitioner 07/01/23 Additional Source Comments The information contained in this document represents components of the legal health record. It is not the complete legal health record.[facility]
--- OUTSIDE RECORDS SUMMARY | 2025-01-12 09:25 | XMS_ITS | Patient Health Record ---
Author Organization [facility] Address [address] [place] [address] Care Team Providers Care Survey Engineer Name Role Phone Mikey Simmons Unavailable [phone] Reason For Referral No Information Plan Of Treatment No Information
--- OUTSIDE RECORDS SUMMARY | 2025-01-12 09:25 | XMS_ITS | Clinical Summary ---
Author Organization [employer] Address [address] [facility] 7t [place] [address] Care Team Providers Care Gun Numberer Name Role Phone Unavailable Primary Care Provider [...] morning. Active ergocalciferol (Vitamin D2) 1.25 MG (17125 UT) capsule Take 1 capsule by mouth [...] Description 01/17/2025 1:00 PM EDT Office Visit [facility] [address] [place] [address] [phone] Elma Mcallister [address] [place], [place] [phone] Health Maintenance Due Date Last Done Comments [...] Most Recently Relevant to Health Maintenance Insurance [employer] [facility] PARTIAL (MEDICAID)
== END 2025-01-12 09:16 | disposition home or self-care (01) ==
LOC: HO.HGS 08:49
PROVIDERS: PCP Nurse Practitioner Family; Visit Provider Surgery
DX: K80.20 Calculus of gallbladder without cholecystitis without obstruction (principal)
CPT/HCPCS: 99203

== ENCOUNTER → 2025-01-12 08:49 | Outpatient (BNVA) | payer OTHER, SELFPAY | PROVIDERS: PCP Nurse Practitioner Family; Visit Provider Surgery | DX: K80.20 Calculus of gallbladder without cholecystitis without obstruction (principal) | CPT/HCPCS: 99202 ==

== ENCOUNTER 2025-02-10 08:00 | Day surgery (SDC) | payer OTHER, SELFPAY ==
--- OUTSIDE RECORDS SUMMARY | 2025-02-01 18:28 | XMS_ITS | Patient Health Record ---
Author Organization [facility] Address [address] [place] [address] Care Team Providers Care Shipyard Painter Helper Name Role Phone Mikey Simmons Unavailable [phone] Reason For Referral No Information Plan Of Treatment No Information
--- OUTSIDE RECORDS SUMMARY | 2025-02-01 18:28 | XMS_ITS | Clinical Summary ---
Author Organization [facility] Address [address] [address] Phone Care Team Providers Care Chief Minister Name Role Phone Francisco Mendez INVESTIGATOR UTILITY BILL COMPLAINTS Primary Care Provider + Allergies Active Allergy [...] every 6 months meaning that it acts [facility]. Some people develop bone pain but this [...] think she has to speak to her scout executive maybe someone else. I am going to [...] is due for repeat DXA scan at [facility] on 11/13/2024 I will request this [...] topic Medical Devices Not on file [place] [place] [address] NON [facility] P[facility] CONNECTORCARE [facility] NON NSPG PCP [place] [facility] CONNECTORCARE [employer] NON NSPG PCP S[place]ITY CONNECTORCARE [employer] NON NSPG PCP S[place] CONNECTORCARE [employer] NON NSPG PCP S[place] CONNECTORCARE [facility] NON NSPG PCP [place] [facility] Care Teams Chief Minister Relationship Specialty Start Date End Date Francisco Mendez NP [address] [place] [address] PCP - General Nurse Practitioner 07/01/23 Additional Source Comments The information contained in this document represents components of the legal health record. It is not the complete legal health record.[facility]
--- OUTSIDE RECORDS SUMMARY | 2025-02-01 18:28 | XMS_ITS | Patient Health Record ---
Author Organization [facility] Address [address] [facility] [facility] [address] [place] [address] Support Name Relationship Address Phone SHAYLA SAWYER Guarantor Unknown [phone] Reason For Referral No Information Medications Medication SIG (Take, Route, Fr equency, Duration) Notes Start Date End Date Status miSOPROStol 200MCG 2 ORAL NIGHT BEFORE PROCEDURE; Duration: -3 Gordon-MJ 07/21/2011 Active Omeprazole 20MG 1 ORAL twice daily; Duration: -3 Gordon-MJ 0 07/21/2011 Active Problems Problem Type SNOMED Code ICD Code Onset Dates Problem Status W/U Status Risk Notes Problem Asthma (disorder) (858931754) Asthma, unspecified, unspecified status (493.90) Active confirmed Major Problem Esophageal reflux (256197794) Esophageal reflux (530.81) Active confirmed Major Problem Dysplasia of cervix (40090705) Dysplasia of cervix, unspecified (622.10) Active confirmed Diag Problem Metrorrhagia (89752482) Metrorrhagia (626.6) Active confirmed Major Problem Abnormal vaginal bleeding (943753509) Other disorder of menstruation and other abnormal bleeding from female genital tract (626.8) Active confirmed Diag Problem Menopausal symptom (77640325) Symptomatic menopausal or female climacteric states (627.2) Active confirmed Major Problem Gynecological examination normal (998769164348725) Routine gynecological examination (V72.31) Active confirmed Major Problem Screening for malignant neoplasm of colon (840606022) Special screening for malignant neoplasms, colon (V76.51) Active confirmed Major Plan Of Treatment No Information Insurance Providers Payer Name Payer Address Payer Phone Subscriber Number Group Number Insured Name Patient Relationship to Insured Coverage Start Date Coverage End Date [facility] [address] [place] [address] [phone] [id number] JESUS MCGUIRE Spouse - patient is the spouse of the insured 2
--- OUTSIDE RECORDS SUMMARY | 2025-02-01 18:28 | XMS_ITS | Clinical Summary ---
Author Organization [employer] Address [address] [facility] 7t [place] [address] Care Team Providers Care Director Of Research Name Role Phone Unavailable Primary Care Provider [...] morning. Active ergocalciferol (Vitamin D2) 1.25 MG (09002 UT) capsule Take 1 capsule by mouth 1 (one) time per week. 07/01/2023 Active calcium carbonate (Os-Jarret) 1250 (500 Ca) MG chewable tablet Chew 1 tablet Once per day. Active Active Problems Problem Noted Date Diagnosed Date Asthma 09/13/2024 Abnormal vaginal bleeding 09/13/2024 Normal gynecologic examination 09/13/2024 Vitamin D deficiency 07/01/2023 Encounters Date Type Department Care Team Description 01/17/2025 1:00 PM EDT Office Visit [facility] [address] [place] [phone] Elma Mcallister from Last 3 Months Social [...] Sign Reading Time Taken Comments Blood Pressure 114/72 01/17/2025 1:09 PM EDT Pulse 75 01/17/2025 1:09 PM EDT Temperature - - Respiratory Rate - - Oxygen Saturation - - Inhaled Oxygen Concentration - - Weight - - Height - - Body Mass Index - - Plan of Treatment Upcoming Encounters Date Type Department Care Team (Late st Contact Info) Description 07/19/2025 1:00 PM EDT Office Visit [facility] [address] [place] [address] [phone] Elma Mcallister [address] [place], [place] [phone] Health Maintenance Due Date Last Done Comments [...] Influenza Vaccine (#1) 2024 Dental Oral Exam 07/18/2025 01/17/2025, , 01/20/2024, Additional history exists Dental Prophylaxis 07/18/2025 01/17/2025, 0 07/11/2024, 01/20/2024, Additional history exists Dental X-Ray: Full Mouth 11/13/2025 11/12/2022 Tobacco Screening 01/17/2026 01/17/2025 Dental X-Ray: Bitewings 01/18/2026 01/18/20 25, 01/20/2024, 11/12/2022 Colorectal Cancer Screening 12/04/2026 FIT DNA/Cologuard [...] Procedure Name Priority Date/Time Associated Diagnosis Comments PERIODIC ORAL EVALUATION - ESTABLISHED PATIENT Routine 01/17/2025 1:00 PM EDT INTRAORAL - PERIAPICAL FIRST RADIOGRAPHIC IMAGE Routine 01/17/2025 1:00 PM EDT INTRAORAL - PERIAPICAL EACH ADDITIONAL RADIOGRAPHIC IMAGE Routine 01/17/2025 1:00 PM EDT BITEWINGS - 4 RADIOGRAPHIC IMAGES Routine 01/17/2025 1:00 PM EDT PROPHYLAXIS - ADULT Routine 01/17/2025 1 :00 PM EDT INTRAORAL - COMPLETE SERIES OF RADIOGRAPHIC IMAGES Routine 11/12/2022 8:00 AM EDT Encounter for dental examination from Last 3 Months or Most Recently Relevant to Health Maintenance Insurance [facility] MEDICAID STAND ADULT [facility] DENTAL - HSN PARTIAL (MEDICAID)
[2025-02-08 09:53] VITALS: BMI 22.0
--- NOTE | 2025-02-09 08:01 | HO.ANESPROP2 ---
Documented by User: Soha Murrieta NP 02/09/25 08:03 HPI - Anesthesia Eval Consult details Narrative: 64yo F for Cholecystectomy Laparoscopic, possible open PMFSH Active Problems Active Problems: All Active Problems Encounter for colorectal cancer screening (Acute) Cholelithiases (Acute) Hemorrhoids (Acute) Gallstones (Acute) Microscopic hematuria (Acute) Rectal discharge (Acute) Change in bowel habit (Acute) Dyslipidemia (Acute) Fecal soiling (Acute) Loose stools (Acute) Encounter for routine adult physical exam with abnormal findings (Acute) Benign paroxysmal positional vertigo due to bilateral vestibular disorder (Acute) Vertigo (Acute) Osteoporosis (Acute) Anxiety (Acute) Postmenopausal (Acute) Excessive cerumen in right ear canal (Acute) Screening for cervical cancer (Acute) Elevated TSH (Acute) Physical exam (Acute) Past Medical History Medical History Ganglion cyst Osteoporosis Anxiety Dyslipidemia Family History Family History Father Colon cancer Fall Substance use disorder Mother Arthritis Dementia Mental health disorder Brother Substance use disorder Paternal Uncle Substance use disorder Paternal Grandfather Substance use disorder Surgical History Surgical History Hx of wisdom tooth extraction History of tonsillectomy and adenoidectomy Hx of colonoscopy Hx of colonoscopy History of cone biopsy of cervix History of lymph node excision History of mastectomy, total History of breast reconstruction Social History Social History Housing: House Patient Tobacco Use Status: Never used Tobacco e-Cigarette/Vaping Use: Never Used Second Hand Smoke Exposure: No Have you been hit, kicked, punched, or otherwise hurt by someone within the past year? If so, by whom?: No Are you DNR?: No Advance Directives: No Advance Directives Information Provided: Yes service: No Current occupational status: disabled Cognitive needs: No Hearing needs: No Vision needs: No Meds Allergies Allergy/AdvReac Type Severity Reaction Status Date / Time Sulfa (Sulfonamide Allergy Intermediate RASH Verified 01/12/25 08:59 Antibiotics) (SULFA (SULFONAMIDE ANTIBIOTICS)) opioids Allergy Unknown unknown Uncoded 01/12/25 08:59 Home Medications ?Medication ?Instructions ?Recorded ?Confirmed ?Last Taken ?Type omeprazole 20 mg tablet,delayed 20 mg PO DAILY 04/28/22 02/08/25 02/10/25 History release cholecalciferol (vitamin D3) 50 50 mcg PO DAILY 12/26/24 02/08/25 Unknown History mcg (2,000 unit) capsule Exam Height,Weight and Vital Signs: Height 5 ft 5 in Weight 59.874 kg Assessment and Plan Assessment Anesthesia Assessment: Chart Reviewed Documented by User: Deyanira Anton NP 02/09/25 12:25 HPI - Anesthesia Eval Consult details Narrative: 64yo F for Cholecystectomy Laparoscopic, possible open Very sensitive to narcotics, difficult to wake up after lymph node excision many years ago. PMFSH Past Medical History Medical History Ganglion cyst Osteoporosis Anxiety Dyslipidemia Family History Family History Father Colon cancer Fall Substance use disorder Mother Arthritis Dementia Mental health disorder Brother Substance use disorder Paternal Uncle Substance use disorder Paternal Grandfather Substance use disorder Surgical History Surgical History Hx of wisdom tooth extraction History of tonsillectomy and adenoidectomy Hx of colonoscopy Hx of colonoscopy History of cone biopsy of cervix History of lymph node excision History of mastectomy, total History of breast reconstruction Social History Social History Housing: House Patient Tobacco Use Status: Never used Tobacco e-Cigarette/Vaping Use: Never Used Second Hand Smoke Exposure: No Have you been hit, kicked, punched, or otherwise hurt by someone within the past year? If so, by whom?: No Are you DNR?: No Advance Directives: No Advance Directives Information Provided: Yes service: No Current occupational status: disabled Cognitive needs: No Hearing needs: No Vision needs: No Meds Allergies Allergy/AdvReac Type Severity Reaction Status Date / Time Sulfa (Sulfonamide Allergy Intermediate RASH Verified 01/12/25 08:59 Antibiotics) (SULFA (SULFONAMIDE ANTIBIOTICS)) opioids Allergy Unknown unknown Uncoded 01/12/25 08:59 Home Medications ?Medication ?Instructions ?Recorded ?Confirmed ?Last Taken ?Type omeprazole 20 mg tablet,delayed 20 mg PO DAILY 04/28/22 02/08/25 02/10/25 History release cholecalciferol (vitamin D3) 50 50 mcg PO DAILY 12/26/24 02/08/25 Unknown History mcg (2,000 unit) capsule Documented by User: Kate Rasheed MD 02/10/25 10:00 PMFSH Past Medical History Medical History Ganglion cyst Osteoporosis Anxiety Dyslipidemia Family History Family History Father Colon cancer Fall Substance use disorder Mother Arthritis Dementia Mental health disorder Brother Substance use disorder Paternal Uncle Substance use disorder Paternal Grandfather Substance use disorder Surgical History Surgical History Hx of wisdom tooth extraction History of tonsillectomy and adenoidectomy Hx of colonoscopy Hx of colonoscopy History of cone biopsy of cervix History of lymph node excision History of mastectomy, total History of breast reconstruction History of Problems with Anesthesia: No Social History Social History Housing: House Patient Tobacco Use Status: Never used Tobacco e-Cigarette/Vaping Use: Never Used Second Hand Smoke Exposure: No Have you been hit, kicked, punched, or otherwise hurt by someone within the past year? If so, by whom?: No Are you DNR?: No Advance Directives: No Advance Directives Information Provided: Yes service: No Current occupational status: disabled Cognitive needs: No Hearing needs: No Vision needs: No Meds Allergies Allergy/AdvReac Type Severity Reaction Status Date / Time Sulfa (Sulfonamide Allergy Intermediate RASH Verified 01/12/25 08:59 Antibiotics) (SULFA (SULFONAMIDE ANTIBIOTICS)) opioids Allergy Unknown unknown Uncoded 01/12/25 08:59 Home Medications ?Medication ?Instructions ?Recorded ?Confirmed ?Last Taken ?Type omeprazole 20 mg tablet,delayed 20 mg PO DAILY 04/28/22 02/08/25 02/10/25 History release cholecalciferol (vitamin D3) 50 50 mcg PO DAILY 12/26/24 02/08/25 Unknown History mcg (2,000 unit) capsule Exam Airway Mallampati Class: III (prominent upper incisors) TM Dist: >3cm Neck ROM: Full Loose/Missing/Broken Teeth: No Heart: RRR Lungs: CTA Assessment and Plan Assessment Anesthesia Assessment: Anesthesia Plan Discussed Final Anesthetic Review History of Problems with Anesthesia: No NPO: Yes ASA Class: II Final Preanesthetic Review: Meds/Allgs Chart Reviewed, Consent Obtained/Reviewed and Anes Risks/Benef Reviewed Patient Risk: Low Procedure Risk: Intermediate Anesthetic Plan Anesthetic Plan: GA Disposition: Standard PACU
[2025-02-10] VITALS (7 sets, daily range): BP systolic 131–151; BP diastolic 76–89; PULSE 51–80; RESP 10–18; TEMP 36.3–36.7; O2SAT 97–100; BMI 21.7
[2025-02-10] MEDS: Lactated Ringers 1,000 ML 100 ML IVCONT (08:57)
--- NOTE | 2025-02-10 10:13 | MHC.SHP ---
Pre-Procedural Eval Section A - 24 Hr Update-Section A only Date of Service: 02/10/25 The patient is an INPATIENT: No Changes since office visit: No Cold of Flu in the past 2 weeks, No New Medical Problems, No Changes in Medication and No Patient answered all questions The patient has been examined within 24 hours of the surgical procedure. The History & Physical has been completed within 30 days and I have reviewed it.: Yes Section B - Complete if H&P > 30 days Chief Complaint: Calculus of gallbladder without cholecystitis with Allergies: Allergies Allergy/AdvReac Type Severity Reaction Status Date / Time Sulfa (Sulfonamide Allergy Intermediate RASH Verified 01/12/25 08:59 Antibiotics) (SULFA (SULFONAMIDE ANTIBIOTICS)) opioids Allergy Intermediate Nausea and Uncoded 02/10/25 10:10 Vomiting Plan I have reviewed the history and physical and performed a pertinent physical examination on my patient. No changes have occurred unless specified. Time Spent With Patient Time: Total time managing care of this patient today ____ minutes.
[2025-02-10] MEDS: cefoTEtan disodium 2 GM VIAL IVPUSH (10:37)
--- NOTE | 2025-02-10 11:32 | P.OP_ITS ---
Operative Note Operative Note Date of Service: 02/10/25 Narrative: Preop diagnosis: Symptomatic gallstones Postop diagnosis: The same Procedure: Laparoscopic cholecystectomy Surgeon: Ahmet Day MD assistant county engineer: MONAE Braswell The patient is a 64 year female with gallstones with periodic right upper quadrant pain. She therefore wanted to proceed with cholecystectomy. She understood the technique of the planned procedure as well as the risks, benefits, and alternatives. She was brought to the operating room and placed supine under general anesthesia via endotracheal tube. The abdomen was prepped and draped in the usual sterile fashion. A surgical time-out was done. The patient was on scheduled IV antibiotics . I made a short incision on the supraumbilical area using blade 15. This was carried down through the full-thickness of the skin and thick subcutaneous fat to the fascia. The fascia was incised. The peritoneum was entered. Through this incision a New port was introduced pneumoperitoneum was introduced to a pressure of 15 mm Hg. From here on the rest of procedure was done under vision with the 10 mm flat laparoscope. With laparoscopic visualization inserted a 5/12 mm port in the epigastric area. Two 5 mm ports introduced a small incision below the subcostal margin along the anterior axillary line and the midclavicular line. Graspers were placed through these working ports. The patient was placed in a head up and [id number] position The gallbladder was seen. This was supple and nondistended without any signs of inflammation acutely. I was able to apply a grasper at the fundus to retract this cephalad. I proceeded to apply another grasper towards the pouch of the gallbladder to retract this laterally. At this point the gallbladder was being retracted in the cephalad and lateral fashion to put the area of the cystic duct on stretch. I carefully dissected the neck of the gallbladder using the Maryland dissector to tease off the peritoneal lining and by doing so was able to visualize the cystic duct. With continued dissection using the Maryland dissector, I was able to visualize the cystic duct and its confluence with the neck of the gallbladder. The cystic artery was also seen running alongside this. We had achieved a critical view of the hepatocystic triangle at this point. I therefore applied clips on the cystic duct with 2 clips being applied distally. The cystic duct was transected between clips with Endo scissors. I applied clips on the cystic artery with 2 clips applied distally. The cystic artery was transected with the clips with Endo scissors as well. With traction of the gallbladder away from the liver bed I proceeded to then carefully divide the hilum with the electrocautery spatula. I incised the peritoneum of the gallbladder to create a plane of dissection between the g allbladder wall and the liver bed. The gallbladder was a little bit intrahepatic. I developed this plane of dissection with a combination of blunt dissection with the tip of the spatula as well as electrocautery until the entire gallbladder was completely from the liver bed. The gallbladder was retrieved through an endobag through the umbilical incision. I reinserted all ports and re-insufflated. I copiously irrigated and suctioned out the irrigant fluid. There was note of good hemostasis on the surgical site including the liver bed. I observed all 4 quadrants and there was no other pathology seen. There was no evidence of any bowel injury bile leak. With hemostasis confirmed, we desufflated through the port sites. The ports were removed, with the umbilical port removed last. The fascia of the umbilical incision was closed with a [id number] Polysorb 0 stitch. Skin closure was achieved on all incisions using Polysorb 4-0 subcuticular running sutures. All incisions were infiltrated with Marcaine 0.5% for postop analgesia. Steri-Strips and dressings were applied and the procedure was completed The patient tolerated procedure well. There were no immediate complications. Initial and final counts of sponges and instruments were correct. Estimated blood loss was about 25 cc. The patient was extubated without difficulty and transferred to the recovery room with stable vital signs.
[2025-02-10] MEDS: oxyCODONE HCl Immed Release 5 MG TABLET PO (12:25)
== END 2025-02-10 13:15 | disposition home or self-care (01) ==
PROVIDERS: PCP Nurse Practitioner Family; Visit Provider Surgery
PROC: 0FT44ZZ Resection of Gallbladder, Percutaneous Endoscopic Approach (ICD-10-PCS; CPT 47562; principal; 2025-02-10 11:30)
DX: K80.10 Calculus of gallbladder with chronic cholecystitis without obstruction (principal); Q44.1 Other congenital malformations of gallbladder; K21.9 Gastro-esophageal reflux disease without esophagitis; R10.13 Epigastric pain; Z79.899 Other long term (current) drug therapy; Z88.2 Allergy status to sulfonamides; Z88.5 Allergy status to narcotic agent; Z98.890 Other specified postprocedural states; Z80.0 Family history of malignant neoplasm of digestive organs
CPT/HCPCS: 47562; 88304; J0131; J0525; J1100; J1630; J1885; J2003; J2250; J2405; J2704; J2795; J3010

== ENCOUNTER → 2025-02-10 08:00 | Outpatient (BNV) | payer OTHER, SELFPAY | PROVIDERS: PCP Nurse Practitioner Family; Visit Provider Surgery | DX: K80.20 Calculus of gallbladder without cholecystitis without obstruction (principal) | CPT/HCPCS: 47562 ==

== ENCOUNTER 2025-02-23 10:16 | Outpatient (AMB) | payer OTHER, SELFPAY ==
--- NOTE | 2025-02-23 10:20 | A.OFFVIS_ITS ---
Vital Signs 02/23/25 10:30 Height 5 ft 5 in Weight 131 lb 8 oz BMI 21.9 BP 108/61 Blood Pressure Location Lt brachial Position Sitting Pulse 77 Intake Visit Reasons: S/P lap lenore Intake Note: Patient is seen in office for post op assessment post laparoscopic cholecystectomy. Pt c/o: admits to sore, bruise, tender, denies any signs of infection Weatherization Operations Manager Required: No Accompanied by: Self / Same As Patient Allergies Sulfa (Sulfonamide Antibiotics) (SULFA (SULFONAMIDE ANTIBIOTICS)) Allergy (Intermediate, Verified 02/23/25 10:35) RASH opioids Allergy (Intermediate, Uncoded 02/23/25 10:35) Nausea and Vomiting HPI HPI S/P lap lenore: Details: 64 year old female who underwent laparoscopic cholecystectomy on 02/10/25 for symptomatic gallstones and chronic epigastric pain. She reports she tolerated the procedure well. She had incisional as well as shoulder and neck pain which the percocet did not help with but was relieved with ibuprofen. She took that for around 5 days after. She currently denies any abdominal pain but has mild soreness occasionally after a busy day. She is eating normally without nausea or vomiting. She reports no more epigastric abdominal pain. She is moving her bowels without difficulty. She has no concerns. [facility] Medical History Ganglion cyst Osteoporosis Anxiety Dyslipidemia Surgical History (Updated 02/23/25 @ 13:27 by Rosanne Espinoza PA-C) S/P laparoscopic cholecystectomy (02/10/25) Hx of wisdom tooth extraction History of tonsillectomy and adenoidectomy Hx of colonoscopy Hx of colonoscopy History of cone biopsy of cervix History of lymph node excision History of mastectomy, total History of breast reconstruction Family History Father Colon cancer Fall Substance use disorder Mother Arthritis Dementia Mental health disorder Brother Substance use disorder Paternal Uncle Substance use disorder Paternal Grandfather Substance use disorder Social History Housing: House Comment: cramping Patient Tobacco Use Status: Never used Tobacco e-Cigarette/Vaping Use: Never Used Second Hand Smoke Exposure: No service: No Current occupational status: disabled Cognitive needs: No Hearing needs: No Vision needs: No Review of Systems Const All systems reviewed & are unremarkable except as noted in HPI and below Physical Exam Vital Signs: Last Vital Signs Pulse 77 02/23/25 10:30 BP 108/61 02/23/25 10:30 BMI result Body Mass Index 21.9 Const General: comfortable, no acute distress and alert Orientation/consciousness: patient oriented x3 Resp Effort & Inspection: normal respiratory effort GI Other: soft, non distended incisions well approximated and well healed, no surrounding erythema nontender Palpation (GI): no guarding and not rigid Skin General skin exam: no rashes or lesions noted and no jaundice Neuro General: patient oriented x3 and moves all extremities Results Reviewed Results Reviewed: Gallbladder, cholecystectomy: Chronic cholecystitis with cholelithiasis Assessment & Plan Assessment & Plan (1) Cholelithiases: Code(s): K80.20 - Calculus of gallbladder without cholecystitis without obstruction Category: Medical Plan 64 year old female s/p laparoscopic cholecystectomy on 02/10/25 for symptomatic gallstones. She tolerated the procedure well and is doing well post operatively. Her abdomen is benign with well healed and clean incisions without evidence of infection. She is to continue no heavy lifting or strenuous exercise for 2 more weeks. She can follow up as needed if she develops concerns. Patient comfortable with plan, all questions answered. Coding Level of Care Code Global (50007) Diagnoses Cholelithiases K80.20
[2025-02-23 10:30] VITALS: BP 108/61; PULSE 77; BMI 21.9
--- OUTSIDE RECORDS SUMMARY | 2025-02-23 11:59 | XMS_ITS | Clinical Summary ---
Author Organization [employer] Address [address] 7[address] [place] [address] Care Team Providers Care Wet Machine Operator Name Role Phone Unavailable Primary Care Provider [...] morning. Active ergocalciferol (Vitamin D2) 1.25 MG (52410 UT) capsule Take 1 capsule by mouth [...] Description 01/17/2025 1:00 PM EDT Office Visit [facility] [address] [place] [phone] Elma Mcallister from Last 3 Months Social [...] Description 07/19/2025 1:00 PM EDT Office Visit [facility] [address] [place] [address] [phone] Elma Mcallister [address] [place], [place] [phone] Health Maintenance Due Date Last Done Comments [...] Most Recently Relevant to Health Maintenance Insurance [facility] MEDICAID STAND ADULT [facility] D[facility] - [facility] PARTIAL (MEDICAID)
--- OUTSIDE RECORDS SUMMARY | 2025-02-23 11:59 | XMS_ITS | Clinical Summary ---
Author Organization [facility] Address [address] [address] Phone Care Team Providers Care Brim Pouncer Name Role Phone Francisco Mendez DETAILER FURNITURE Primary Care Provider + Allergies Active Allergy [...] think she has to speak to her refrigeration system installer maybe someone else. I am going to [...] is due for repeat DXA scan at [facility] on 11/13/2024 I will request this [...] topic Medical Devices Not on file [place] [address] [address] [facility] NON NSPG PCP [facility] NON NSPG PCP [place] [facility] NON NSPG PCP S[place] [facility] NON NSPG PCP S[place] [facility] NON NSPG PCP [place] [place] [facility] Care Teams Brim Pouncer Relationship Specialty Start Date End Date Francisco Mendez NP [address] [place] [address] PCP - General Nurse Practitioner 07/01/23 Additional Source Comments The information contained in this document represents components of the legal health record. It is not the complete legal health record.[facility]
--- OUTSIDE RECORDS SUMMARY | 2025-02-23 11:59 | XMS_ITS | Patient Health Record ---
Author Organization [facility] Address [address] [place] [address] Support Name Relationship Address Phone SHAYLA SAWYER Guarantor Unknown [phone] Reason For Referral No Information Medications Medication SIG (Take, Route, Fr equency, Duration) Notes Start Date End Date Status miSOPROStol 200MCG 2 ORAL NIGHT BEFORE PROCEDURE; Duration: -3 Gordon-MJ 07/21/2011 Active Omeprazole 20MG 1 ORAL twice daily; Duration: -3 Gordon-MJ 0 07/21/2011 Active Problems Problem Type SNOMED Code ICD Code Onset Dates Problem Status W/U Status Risk Notes Problem Asthma (disorder) (892895555) Asthma, unspecified, unspecified status (493.90) Active confirmed Major Problem Esophageal reflux (634463703) Esophageal reflux (530.81) Active confirmed Major Problem Dysplasia of cervix (15277307) Dysplasia of cervix, unspecified (622.10) Active confirmed Diag Problem Metrorrhagia (75099835) Metrorrhagia (626.6) Active confirmed Major Problem Abnormal vaginal bleeding (215421866) Other disorder of menstruation and other abnormal bleeding from female genital tract (626.8) Active confirmed Diag Problem Menopausal symptom (67017179) Symptomatic menopausal or female climacteric states (627.2) Active confirmed Major Problem Gynecological examination normal (136545756996446) Routine gynecological examination (V72.31) Active confirmed Major Problem Screening for malignant neoplasm of colon (121866351) Special screening for malignant neoplasms, colon (V76.51) Active confirmed Major Plan Of Treatment No Information Insurance Providers Payer Name Payer Address Payer Phone Subscriber Number Group Number Insured Name Patient Relationship to Insured Coverage Start Date Coverage End Date [facility] [address] [place] [address] [id number] JESUS MCGUIRE Spouse - patient is the spouse of the insured 2
--- OUTSIDE RECORDS SUMMARY | 2025-02-23 11:59 | XMS_ITS | Patient Health Record ---
Author Organization [facility] Address [address] [place] [phone] Care Team Providers Care Immigration Lawyer Name Role Phone Mikey Simmons Unavailable [phone] Reason For Referral No Information Plan Of Treatment No Information
== END 2025-02-23 10:56 | disposition home or self-care (01) ==
LOC: HO.HGS 10:16
PROVIDERS: PCP Nurse Practitioner Family; Visit Provider Physician Assistant Surgical
DX: K80.20 Calculus of gallbladder without cholecystitis without obstruction (principal)
CPT/HCPCS: 99024

== ENCOUNTER → 2025-02-23 10:16 | Outpatient (BNVA) | payer OTHER, SELFPAY | PROVIDERS: PCP Nurse Practitioner Family; Visit Provider Physician Assistant Surgical | DX: Z98.890 Other specified postprocedural states (principal); K80.20 Calculus of gallbladder without cholecystitis without obstruction | CPT/HCPCS: 99212 ==

== ENCOUNTER 2025-03-13 06:02 | Outpatient (REF) | payer OTHER, SELFPAY ==
--- OUTSIDE RECORDS SUMMARY | 2025-03-13 06:05 | XMS_ITS | Clinical Summary ---
Author Organization [employer] Address [address] [facility] [address] 7[address] [place] [address] Care Team Providers Care Fishing Rod Trimmer Name Role Phone Unavailable Primary Care Provider [...] morning. Active ergocalciferol (Vitamin D2) 1.25 MG (40456 UT) capsule Take 1 capsule by mouth [...] Description 01/17/2025 1:00 PM EDT Office Visit [facility] [address] [place] [phone] Elma Mcallister from Last 3 Months Social [...] Description 07/19/2025 1:00 PM EDT Office Visit [facility] [address] [place] [address] [phone] Elma Mcallister [address] [place], [place] [phone] Health Maintenance Due Date Last Done Comments CT Colonography 1961 Colonoscopy 1961 Depression Screening 1961 FIT 1961 HIV Screening 1961 SDOH Screening 1961 Sigmoidoscopy 1961 Disability Screening 1961 Alcohol/Substance Use Screening 1973 Hepatitis C Screening 1979 DTaP/Tdap/Td Vaccines (1 - Tdap) 02/28/1980 Pneumococcal Vaccine: 50+ Years (1 of 2 - PCV) 02/28/1980 Pap Smear 1982 Cervical Cancer Screening 1991 HPV/Cotest 1991 Mammogram 2001 RSV Patients and Patients Aged 60 years or older (1 - Risk 50-74 years 1-dose series) 2011 Zoster Vaccines (1 of 2) 2011 FOBT 12/04/2024 12/05/2023, 06/11/2020 COVID-19 Vaccine (1 - season) 2024 Influenza Vaccine (#1) 2024 [...] Most Recently Relevant to Health Maintenance Insurance [facility] MEDICAID STAND ADULT [facility] - [facility]SN PARTIAL (MEDICAID)
--- OUTSIDE RECORDS SUMMARY | 2025-03-13 06:05 | XMS_ITS | Patient Health Record ---
Author Organization [facility] Address [address] [place] [address] Support Name Relationship Address Phone SHAYLA SAWYER Guarantor Unknown [phone] Reason For Referral No Information Medications Medication SIG (Take, Route, Fr equency, Duration) Notes Start Date End Date Status miSOPROStol 200MCG 2 ORAL NIGHT BEFORE PROCEDURE; Duration: -3 Gordon-MJ 07/21/2011 Active Omeprazole 20MG 1 ORAL twice daily; Duration: -3 Gordon-MJ 0 07/21/2011 Active Problems Problem Type SNOMED Code ICD Code Onset Dates Problem Status W/U Status Risk Notes Problem Asthma (disorder) (263248101) Asthma, unspecified, unspecified status (493.90) Active confirmed Major Problem Esophageal reflux (615797131) Esophageal reflux (530.81) Active confirmed Major Problem Dysplasia of cervix (04296292) Dysplasia of cervix, unspecified (622.10) Active confirmed Diag Problem Metrorrhagia (74460757) Metrorrhagia (626.6) Active confirmed Major Problem Abnormal vaginal bleeding (068307460) Other disorder of menstruation and other abnormal bleeding from female genital tract (626.8) Active confirmed Diag Problem Menopausal symptom (36711753) Symptomatic menopausal or female climacteric states (627.2) Active confirmed Major Problem Gynecological examination normal (819494516494710) Routine gynecological examination (V72.31) Active confirmed Major Problem Screening for malignant neoplasm of colon (427125202) Special screening for malignant neoplasms, colon (V76.51) Active confirmed Major Plan Of Treatment No Information Insurance Providers Payer Name Payer Address Payer Phone Subscriber Number Group Number Insured Name Patient Relationship to Insured Coverage Start Date Coverage End Date [facility] [address] [place] [address] [id number] JESUS MCGUIRE Spouse - patient is the spouse of the insured 2
--- OUTSIDE RECORDS SUMMARY | 2025-03-13 06:05 | XMS_ITS | Patient Health Record ---
Author Organization [facility] Address [address] [place] [phone] Care Team Providers Care City Detective Name Role Phone iMkey Smimons Unavailable [phone] Reason For Referral No Information Plan Of Treatment No Information
--- OUTSIDE RECORDS SUMMARY | 2025-03-13 06:05 | XMS_ITS | Clinical Summary ---
Author Organization [facility] Address [address] [place] [phone] Phone Care Team Providers Care Landscape Laborer Name Role Phone Francisco Mendez HEAD CAGER Primary Care Provider + Allergies Active Allergy [...] think she has to speak to her tool design draftsperson maybe someone else. I am going to [...] is due for repeat DXA scan at [facility] on 11/13/2024 I will request this study. [...] patient's age to complete this topic IPV VACCINES Aged Out No longer eligi ble based on patient's age to complete this topic MENINGOCOCCAL VACCINES (ACWY) Aged Out No longer eligible based on patient's age to complete this topic MENINGOCOCCAL VACCINES (B) Aged Out N o longer eligible based on patient's age to complete this topic Medical Devices Not on file Insurance [facility] PCP JASPAL COBB CONNECTORCARE [facility] NON [facility] PCP [facility] CONNECTORCARE WELLSENSE NON NSPG PCP SILVER CLARITY CONNECTORCARE WELLSENSE NON NSPG PCP SILVER CLARITY CONNECTORCARE WELLSENSE NON NSPG PCP SILVER CLARITY CONNECTORCARE WELLSENSE NON NSPG PCP JASPAL COBB CONNECTORCARE Care Teams Landscape Laborer Relationship Specialty Start Date End Date Francisco Mendez NP [address] [place] [address] PCP - General Nurse Practitioner 07/01/23 Additional Source Comments The information contained in this document represents components of the legal health record. It is not the complete legal health record.[facility]
[2025-03-13 06:15] LABS: MANUAL DIFF FLAG NO
[2025-03-13 08:13] LABS: Hematocrit 40.1 % (37.0-47.0); Hemoglobin 13.0 g/dl (12.0-16.0); Imm Gran Abs Auto 0.01 X10*3/uL (0.00-0.03); Imm Gran Pct Auto 0.2 % (0.0-0.4); Lymphocytes Absolute Auto 1.2 X10*3/uL (1.2-4.9); Mean Corpuscular HGB Conc 32.4 g/dl (31.0-35.0); Mean Corpuscular Hemoglobin 30.4 pg (27.0-33.0); Mean Corpuscular Volume 93.7 fL (80.0-98.0); NRBC Abs Auto 0.000 X10*3/uL (0.0-0.012); NRBC Pct Auto 0.0 /100WBC (0.0-0.2); Platelet Count 201 X10*3/uL (160-400); Red Blood Count 4.28 X10*6/uL (4.20-5.50); White Blood Count 5.5 X10*3/uL (4.8-10.8)
[2025-03-13 08:49] LABS: Alanine Aminotransferase 16 U/L (0-31); Albumin Level 4.6 g/dL (3.5-5.0); Alkaline Phosphatase 55 U/L (39-117); Anion Gap 12 (12-20); Aspartate Amino Transferase 19 U/L (5-31); Blood Urea Nitrogen 24 mg/dL (9-16); Calcium 9.6 mg/dL (8.4-10.2); Carbon Dioxide 29 mmol/L (22-29); Chloride 105 mmol/L (96-108); Cholesterol 170 mg/dL (<200); Estimated Glomerular Filt Rate > 60; HDL Cholesterol 57 mg/dL (>40); Potassium 4.2 mmol/L (3.3-5.1); Sodium 142 mmol/L (135-145); Total Protein 7.2 g/dL (6.5-8.0); Triglycerides 57 mg/dL (<150)
[2025-03-13 08:51] LABS: Appearance Urine Clear; Glucose Urine UA Negative (Negative); PH 5.5 (5.0-9.0); Specific Gravity - Urine 1.020 (1.005-1.025); UMIC TRIGGER UACC YES
[2025-03-13 09:14] LABS: UACC Culture Trigger YES
[2025-03-13 09:27] LABS: Free T4 (Free Thyroxine) 1.13 ng/dL (0.71-1.85)
== END 2025-03-13 06:03 | disposition home or self-care (01) ==
LOC: HO.LAB 06:02
PROVIDERS: PCP Nurse Practitioner Family; Visit Provider Nurse Practitioner Family
DX: R79.89 Other specified abnormal findings of blood chemistry (principal); E78.5 Hyperlipidemia, unspecified
CPT/HCPCS: 36415; 80053; 80061; 81001; 82306; 84439; 84443; 85025; 87086

== ENCOUNTER 2025-03-14 15:53 | Outpatient (AMB) | payer OTHER, SELFPAY ==
[2025-03-14 16:10] VITALS: BP 110/72; PULSE 72; RESP 16; O2SAT 97; BMI 21.5
--- NOTE | 2025-03-14 16:10 | A.OFFPC_ITS ---
Vital Signs 03/14/25 16:10 Height 5 ft 5 in Weight 129 lb BMI 21.5 BP 110/72 Blood Pressure Location Lt brachial Position Sitting Respiration 16 Pulse 72 Pulse Source Pulse Oximeter Pulse Oximetry (%) 97 Oxygen Delivery Method Room Air Intake Visit Reasons: 6m follow up Contact Person Required: No Accompanied by: Self / Same As Patient Allergies Sulfa (Sulfonamide Antibiotics) (SULFA (SULFONAMIDE ANTIBIOTICS)) Allergy (Intermediate, Verified 03/14/25 16:10) RASH opioids Allergy (Intermediate, Uncoded 03/14/25 16:10) Nausea and Vomiting Medication List - Last Reconciled 03/14/25 by Francisco Mendez, INTEGRATION CONSULTANT- atorvastatin 20 mg PO DAILY 90 days calcium carbonate-vitamin D3 600 mg-12.5 mcg (500 unit) (Calcium with Vit D3) 1 cap PO BID 90 days cholecalciferol (vitamin D3) 50 mcg PO DAILY ibuprofen 600 mg PO Q6H PRN lorazepam 0.5 mg PO DAILY PRN 30 days omeprazole 20 mg PO DAILY oxycodone-acetaminophen 5-325 mg 1 tab PO Q6H PRN Tobacco use date assessed: 03/14/25 Fall risk assessment: No Falls in past year Last assessed Fall Risk: 03/14/25 Dental Screening Dental Screen Date: 03/14/25 Did you have a dental visit in the last 12 months?: Yes Did you have a dental problem in the last 6 months where you did not have access to dental care?: No Was dental information given to patient?: Patient has dentist HPI 6m follow up HPI Details History of Present Illness The patient is a 65 year old individual presenting for a physical exam. The patient reports doing quite well overall. Past medical history is significant for breast carcinoma, kidney stones, and hypercholesterolemia, which is managed with atorvastatin. The patient underwent a cholecystectomy last month. Microscopic hematuria was noted on recent labs. Urine culture showed a bacterial count of less than 10,000, and the patient denies any symptoms of a urinary tract infection. The patient receives regular mammograms and has a data processing operator for Pap smears. The patient declines vaccinations. The patient has never smoked and denies having worked in a factory or being exposed to many chemicals. TSH elevated: subclinical hypothyroidism Health Maintenance The patient is up to date with Pap smears and mammograms. The patient continues to decline recommended vaccinations. cologuard is up to date Social History - Reports never having smoked. - Denies any history of factory work or significant chemical exposure. Review of Systems - General: Reports doing quite well over all. - Constitutional: Denies fevers and chil ls. - Cardiovascular: Denies chest pain. - Respiratory: Denies shortness of breat h. - Gastrointestinal: Denies abdominal bryn n, blood in stool, constipation, and diarrhea. - Genitourinary: Denies any symptoms of a urinary tract infection. - Psychiatric: Denies suicidal or homici justa ideation. Physical Exam General: Cooperative, healthy appearing, comfortable, no acute distress and well developed Orientation: Patient oriented x3 Limitations: No limitations Head: Normal to inspection Ears: Hearing grossly normal bilaterally Nose: Normal external nose present Face and sinus: Normal facial exam Eyes: Appearance normal, both eyes and all related structures Neck: Normal visual inspection and Yes full ROM Respiratory: Normal respiratory effort and able to speak in complete sentences. Clear to auscultation bilaterally Cardiovascular: Regular rate and rhythm. Normal S1 and S2 GI: Normal to inspection. Soft to palpation and nontender. Abdomen is not tender to touch. Healed lab sites noted, no signs of infection. Skin: No rashes or lesions noted Neuro: Patient oriented x3 Extremities: Normal to inspection Results - Labs: LDL is 102 mg/dL. - Urinalysis: Positive for microscopic h ematuria. - Urine Culture: A previous culture show ed a bacterial count of less than 10,000. Plan 1. Microscopic Hematuria To further evaluate the microscopic hematuria, a CT urogram, urine cytology, urine culture, and a repeat urinalysis will be ordered. 2. Hypercholesterolemia The patient will continue treatment with atorvastatin, as the LDL is controlled at 102 mg/dL. 3. Encounter for general adult medical e xamination with abnormal findings Z00.01 4. elevated TSH: asymptomatic, will rec heck in 2 months Discussion Notes I discussed the finding of microscopic hematuria with the patient. I recommended a diagnostic workup including a CT urogram, urine cytology, urine culture, and a repeat urinalysis. We reviewed that the LDL cholesterol is well-controlled with atorvastatin. Patient Instructions - You will need to complete several foll ow-up tests to investigate the cause of a small amount of blood found in your urine. - These tests will include a CT scan of your urinary system (CT urogram), a urine test for abnormal cells (cytology), a urine test for infection (culture), and another standard urine test (urinalysis). - Continue taking your cholesterol medic ine, atorvastatin, as prescribed. - Your incisions from the recent gallbla dder surgery are healing well. - We discussed vaccinations, which you kem de jesus chosen to decline at this time. [facility] Medical History Dyslipidemia Ganglion cyst Osteoporosis Anxiety Surgical History S/P laparoscopic cholecystectomy (02/10/25) Hx of wisdom tooth extraction History of tonsillectomy and adenoidectomy Hx of colonoscopy Hx of colonoscopy History of cone biopsy of cervix History of lymph node excision History of mastectomy, total History of breast reconstruction Family History Father Colon cancer Fall Substance use disorder Mother Arthritis Dementia Mental health disorder Brother Substance use disorder Paternal Uncle Substance use disorder Paternal Grandfather Substance use disorder Social History Housing: House Comment: cramping Patient Tobacco Use Status: Never used Tobacco e-Cigarette/Vaping Use: Never Used Second Hand Smoke Exposure: No service: No Current occupational status: disabled Cognitive needs: No Hearing needs: No Vision needs: No Questionnaire Thrive Questionnaire Date Thrive assessed: 05/09/24 I am a: Patient What is your living situation today?: I have a steady place to live Within the past 12 months, did the food you bought not last and you didn't have the money to get more?: Never true Within the past 12 months, did you worry whether your food would run out before you got money to buy more?: Never true Do you have trouble paying for medicines?: No Do you have trouble getting transportation to medical appointments?: No Do you have trouble paying your heating and electricity bill?: No Do you have trouble taking care of your child, family member or friend?: No Do you have trouble with day-to-day activities such as bathing, preparing meals, shopping, managing finances, etc.?: No Are you currently unemployed and looking for a job?: No Are you interested in more education?: No Please select the resources that you would like help with: None Currently or been in a relationship where the following occur: No concerns reported THRIVE Score: 0 FERMIN-7 AMB Questionnaire FERMIN-7 Date FERMIN - 7 assessed: 05/16/24 Source: Developed by Drs. Mikey Camarena, Kalyn Espinal, Brenton Albarado and colleagues, with an educational chastity from [employer]. Physical exam (Primary Care) Vital Signs: Last Vital Signs Pulse 72 03/14/25 16:10 Resp 16 03/14/25 16:10 BP 110/72 03/14/25 16:10 Pulse Ox 97 03/14/25 16:10 Oxygen Delivery Method Room Air 03/14/25 16:10 BMI result Body Mass Index 21.5 Tobacco/Smoking Status: Tobacco use Status Tobacco use date assessed 03/14/25 03/14/25 16:14 Patient Tobacco Use Status Never used Tobacco 03/14/25 16:14 e-Cigarette/Vaping Use Never Used 03/14/25 16:14 Thrive Assessment: Date of Thrive Assessment Date Thrive assessed 05/09/24 03/14/25 16:14 Currently or been in a relationship where the following occur: No concerns reported Coding Level of Care Code Est Pt Level 3 (63138) Est Pt Prev Care 40-64y(64592) Diagnoses Microscopic hematuria R31.29 Elevated TSH R7. Encounter for routine adult physical exam with abnormal findings Z00. Assessment & Plan Assessment & Plan (1) Microscopic hematuria: Code(s): R31.29 - Other microscopic hematuria Category: Medical (2) Elevated TSH: Code(s): R7. - Other specified abnormal findings of blood chemistry Category: Medical (3) Encounter for routine adult physical exam with abnormal findings: Code(s): Z00.01 - Encounter for general adult medical examination with abnormal findings Category: Medical Plan . Orders: Orders UA CC w/rflx Micro + Cult Today R31.29 - Other microscopic hematuria CT urogram Today R31.29 - Other microscopic hematuria Urine Culture Today R31.29 - Other microscopic hematuria Urine Cytology Today R31.29 - Other microscopic hematuria TSH reflex Free T4 2 Months - Other specified abnormal findings of blood chemistry Thyroid Peroxidase Antibodies 2 Months R79.89 - Other specified abnormal findings of blood chemistry Referrals Urology Referral R31.29 - Other microscopic hematuria
--- OUTSIDE RECORDS SUMMARY | 2025-03-14 19:20 | XMS_ITS | Patient Health Record ---
Author Organization [facility] Address [address] [place] [phone] Care Team Providers Care Economics Teacher Name Role Phone Mikey Simmons Unavailable [phone] Reason For Referral No Information Plan Of Treatment No Information
--- OUTSIDE RECORDS SUMMARY | 2025-03-14 19:20 | XMS_ITS | Clinical Summary ---
Author Organization [facility] [facility] Address [address] [place] [address] Care Team Providers Care Computer Systems Administrator Name Role Phone Unavailable Primary Care [...] morning. Active ergocalciferol (Vitamin D2) 1.25 MG (04869 UT) capsule Take 1 capsule by mouth [...] Description 01/17/2025 1:00 PM EDT Office Visit [facility] [address] [place] [phone] Elma Mcallister from Last 3 Months Social [...] Description 07/19/2025 1:00 PM EDT Office Visit [facility] [address] [place] [phone] Elma Mcallister [address] [place], [place] [phone] Health Maintenance Due Date Last Done Comments [...] Most Recently Relevant to Health Maintenance Insurance [facility] MEDICAID STAND ADULT [place] DENTAL [facility] DENTAL - HSN PARTIAL (MEDICAID)
--- OUTSIDE RECORDS SUMMARY | 2025-03-14 19:20 | XMS_ITS | Clinical Summary ---
Author Organization [facility] Address [address] [place] [address] Phone Care Team Providers Care Wax Pattern Coater Name Role Phone Francisco Mendez LAY OUT DRAFTER Primary Care Provider + Allergies Active Allergy [...] every 6 months meaning that it acts retirement. Some people develop bone pain but this [...] think she has to speak to her scalder maybe someone else. I am going to [...] is due for repeat DXA scan at [facility] on 11/13/2024 I will request this [...] topic Medical Devices Not on file [facility] JASPAL COBB CONNECTORCARE [facility] NON [facility] PCP [facility] CONNECTORCARE WELLSENSE NON NSPG PCP SILVER CLARITY CONNECTORCARE WELLSENSE NON NSPG PCP SILVER CLARITY CONNECTORCARE WELLSENSE NON NSPG PCP SILVER CLARITY CONNECTORCARE WELLSENSE NON NSPG PCP JASPAL COBB CONNECTORCARE Care Teams Wax Pattern Coater Relationship Specialty Start Date End Date Francisco Mendez NP [address] [place] [address] PCP - General Nurse Practitioner 07/01/23 Additional Source Comments The information contained in this document represents components of the legal health record. It is not the complete legal health record.[facility]
--- OUTSIDE RECORDS SUMMARY | 2025-03-14 19:20 | XMS_ITS | Patient Health Record ---
Author Organization [facility] Address [address] [place] [address] Support Name Relationship Address Phone SHAYLA SAWYER Guarantor Unknown [phone] Reason For Referral No Information Medications Medication SIG (Take, Route, Fr equency, Duration) Notes Start Date End Date Status miSOPROStol 200MCG 2 ORAL NIGHT BEFORE PROCEDURE; Duration: -3 Gordon-MJ 07/21/2011 Active Omeprazole 20MG 1 ORAL twice daily; Duration: -3 Gordon-MJ 0 07/21/2011 Active Problems Problem Type SNOMED Code ICD Code Onset Dates Problem Status W/U Status Risk Notes Problem Asthma (disorder) (542383516) Asthma, unspecified, unspecified status (493.90) Active confirmed Major Problem Esophageal reflux (969474061) Esophageal reflux (530.81) Active confirmed Major Problem Dysplasia of cervix (13373946) Dysplasia of cervix, unspecified (622.10) Active confirmed Diag Problem Metrorrhagia (04498778) Metrorrhagia (626.6) Active confirmed Major Problem Abnormal vaginal bleeding (456381799) Other disorder of menstruation and other abnormal bleeding from female genital tract (626.8) Active confirmed Diag Problem Menopausal symptom (19811256) Symptomatic menopausal or female climacteric states (627.2) Active confirmed Major Problem Gynecological examination normal (430355431176998) Routine gynecological examination (V72.31) Active confirmed Major Problem Screening for malignant neoplasm of colon (321960127) Special screening for malignant neoplasms, colon (V76.51) Active confirmed Major Plan Of Treatment No Information Insurance Providers Payer Name Payer Address Payer Phone Subscriber Number Group Number Insured Name Patient Relationship to Insured Coverage Start Date Coverage End Date [facility] [address] [place] [id number] JESUS MCGUIRE Spouse - patient is the spouse of the insured 2
== END 2025-03-14 17:00 | disposition home or self-care (01) ==
LOC: HO.HMCC 15:54
PROVIDERS: PCP Nurse Practitioner Family; Visit Provider Nurse Practitioner Family
DX: Z00.01 Encounter for general adult medical examination with abnormal findings (principal); R31.29 Other microscopic hematuria; R79.89 Other specified abnormal findings of blood chemistry

== ENCOUNTER → 2025-03-14 15:53 | Outpatient (BNVA) | payer OTHER, SELFPAY | PROVIDERS: PCP Nurse Practitioner Family; Visit Provider Nurse Practitioner Family | DX: Z00.01 Encounter for general adult medical examination with abnormal findings (principal); E78.00 Pure hypercholesterolemia, unspecified; R31.29 Other microscopic hematuria; R79.89 Other specified abnormal findings of blood chemistry | CPT/HCPCS: 99212; 99396 ==

== ENCOUNTER 2025-03-20 06:02 | Outpatient (REF) | payer OTHER, SELFPAY ==
--- OUTSIDE RECORDS SUMMARY | 2025-03-20 06:04 | XMS_ITS | Clinical Summary ---
Author Organization [facility] Address [address] [address] Phone Care Team Providers Care Diagnostic Cardiac Sonographer Name Role Phone Fracnisco Mendez IDENTIFIER HORSE Primary Care Provider + Allergies Active Allergy [...] every 6 months meaning that it acts chcf. Some people develop bone pain but this [...] think she has to speak to her director index maybe someone else. I am going to [...] is due for repeat DXA scan at [facility] on 11/13/2024 I will request [...] topic Medical Devices Not on file [facility] JASPAL COBB CONNECTORCARE [facility] NON [facility] PCP [facility] CONNECTORCARE WELLSENSE NON NSPG PCP SILVER CLARITY CONNECTORCARE WELLSENSE NON NSPG PCP SILVER CLARITY CONNECTORCARE WELLSENSE NON NSPG PCP SILVER CLARITY CONNECTORCARE WELLSENSE NON NSPG PCP JASAPL COBB CONNECTORCARE Care Teams Diagnostic Cardiac Sonographer Relationship Specialty Start Date End Date Francisco Mendez NP [address] [place] [address] PCP - General Nurse Practitioner 07/01/23 Additional Source Comments The information contained in this document represents components of the legal health record. It is not the complete legal health record.[facility]
--- OUTSIDE RECORDS SUMMARY | 2025-03-20 06:04 | XMS_ITS | Patient Health Record ---
Author Organization [facility] Address [address] [place] [phone] Care Team Providers Care Weather Teacher Name Role Phone Mikey Simmons Unavailable [phone] Reason For Referral No Information Plan Of Treatment No Information
--- OUTSIDE RECORDS SUMMARY | 2025-03-20 06:04 | XMS_ITS | Patient Health Record ---
Author Organization [facility] Address [address] [place] [address] Support Name Relationship Address Phone SHAYLA SAWYER Guarantor Unknown [phone] Reason For Referral No Information Medications Medication SIG (Take, Route, Fr equency, Duration) Notes Start Date End Date Status miSOPROStol 200MCG 2 ORAL NIGHT BEFORE PROCEDURE; Duration: -3 Gordon-MJ 07/21/2011 Active Omeprazole 20MG 1 ORAL twice daily; Duration: -3 Gordon-MJ 0 07/21/2011 Active Problems Problem Type SNOMED Code ICD Code Onset Dates Problem Status W/U Status Risk Notes Problem Asthma (disorder) (109819244) Asthma, unspecified, unspecified status (493.90) Active confirmed Major Problem Esophageal reflux (491507525) Esophageal reflux (530.81) Active confirmed Major Problem Dysplasia of cervix (57785539) Dysplasia of cervix, unspecified (622.10) Active confirmed Diag Problem Metrorrhagia (04017494) Metrorrhagia (626.6) Active confirmed Major Problem Abnormal vaginal bleeding (095093993) Other disorder of menstruation and other abnormal bleeding from female genital tract (626.8) Active confirmed Diag Problem Menopausal symptom (50201191) Symptomatic menopausal or female climacteric states (627.2) Active confirmed Major Problem Gynecological examination normal (854081945728432) Routine gynecological examination (V72.31) Active confirmed Major Problem Screening for malignant neoplasm of colon (927829788) Special screening for malignant neoplasms, colon (V76.51) Active confirmed Major Plan Of Treatment No Information Insurance Providers Payer Name Payer Address Payer Phone Subscriber Number Group Number Insured Name Patient Relationship to Insured Coverage Start Date Coverage End Date [facility] [address] [place] [address] [id number] JESUS MCGUIRE Spouse - patient is the spouse of the insured 2
--- OUTSIDE RECORDS SUMMARY | 2025-03-20 06:04 | XMS_ITS | Clinical Summary ---
Author Organization [facility] Address [address] [place] [address] Care Team Providers Care Legal Internship Name Role Phone Unavailable Primary Care Provider [...] morning. Active ergocalciferol (Vitamin D2) 1.25 MG (80157 UT) capsule Take 1 capsule by mouth [...] Description 01/17/2025 1:00 PM EDT Office Visit [facility] [address] [place] [phone] Elma Mcallister from Last 3 Months Social [...] Description 07/19/2025 1:00 PM EDT Office Visit [facility] [address] [place] [address] [phone] Elma Mcallister [address] [place], [place] [phone] Health Maintenance Due Date Last Done Comments [...] Recently Relevant to Health Maintenance Insurance [facility]ENT[facility] - HSN PARTIAL (MEDICAID)
[2025-03-20 07:42] LABS: Appearance Urine Clear; Glucose Urine UA Negative (Negative); PH 5.5 (5.0-9.0); Specific Gravity - Urine 1.015 (1.005-1.025); UMIC TRIGGER UA YES
== END 2025-03-20 06:03 | disposition home or self-care (01) ==
LOC: HO.LAB 06:02
PROVIDERS: PCP Nurse Practitioner Family; Visit Provider Nurse Practitioner Family
DX: R31.29 Other microscopic hematuria (principal)
CPT/HCPCS: 81001; 87086; 88112

== ENCOUNTER 2025-04-10 15:51 | Outpatient (REF) | payer OTHER, SELFPAY ==
--- OUTSIDE RECORDS SUMMARY | 2025-04-10 18:40 | XMS_ITS | Patient Health Record ---
Author Organization [facility] Address [address] [place] [phone] Care Team Providers Care Master Planner Name Role Phone Mikey Simmons Unavailable [phone] Reason For Referral No Information Plan Of Treatment No Information
--- OUTSIDE RECORDS SUMMARY | 2025-04-10 18:40 | XMS_ITS | Clinical Summary ---
Author Organization [facility] Address [address] [address] Phone Care Team Providers Care Retirement Plan Specialist Name Role Phone Francisco Mendez SOLAR MECHANICAL ENGINEER Primary Care Provider + Allergies Active Allergy [...] think she has to speak to her chemical process project engineer maybe someone else. I am going to [...] is due for repeat DXA scan at [facility] on 11/13/2024 I will request this [...] topic Medical Devices Not on file [place] [address] [place] [address] [facility] CONNECTORCARE [facility] NON NSPG PCP [facility] CONNECTORCARE WELLSENSE NON NSPG PCP SILVER CLARITY CONNECTORCARE WELLSENSE NON NSPG PCP SILVER CLARITY CONNECTORCARE WELL[employer]ENSE NON NSPG PCP SILVER CLARITY CONNECTORCARE [facility] NON NSPG PCP [facility] Care Teams Retirement Plan Specialist Relationship Specialty Start Date End Date Francisco Mendez NP [address] [address] PCP - General Nurse Practitioner 07/01/23 Additional Source Comments The information contained in this document represents components of the legal health record. It is not the complete legal health record.[facility]
--- OUTSIDE RECORDS SUMMARY | 2025-04-10 18:40 | XMS_ITS | Patient Health Record ---
Author Organization [facility] Address [address] [place] [address] Support Name Relationship Address Phone SHAYLA SAWYER Guarantor Unknown [phone] Reason For Referral No Information Medications Medication SIG (Take, Route, Fr equency, Duration) Notes Start Date End Date Status miSOPROStol 200MCG 2 ORAL NIGHT BEFORE PROCEDURE; Duration: -3 Gordon-MJ 07/21/2011 Active Omeprazole 20MG 1 ORAL twice daily; Duration: -3 Gordon-MJ 0 07/21/2011 Active Problems Problem Type SNOMED Code ICD Code Onset Dates Problem Status W/U Status Risk Notes Problem Asthma (disorder) (887611109) Asthma, unspecified, unspecified status (493.90) Active confirmed Major Problem Esophageal reflux (728034765) Esophageal reflux (530.81) Active confirmed Major Problem Dysplasia of cervix (80274959) Dysplasia of cervix, unspecified (622.10) Active confirmed Diag Problem Metrorrhagia (43161258) Metrorrhagia (626.6) Active confirmed Major Problem Abnormal vaginal bleeding (133157909) Other disorder of menstruation and other abnormal bleeding from female genital tract (626.8) Active confirmed Diag Problem Menopausal symptom (10715908) Symptomatic menopausal or female climacteric states (627.2) Active confirmed Major Problem Gynecological examination normal (022386375454199) Routine gynecological examination (V72.31) Active confirmed Major Problem Screening for malignant neoplasm of colon (289415319) Special screening for malignant neoplasms, colon (V76.51) Active confirmed Major Plan Of Treatment No Information Insurance Providers Payer Name Payer Address Payer Phone Subscriber Number Group Number Insured Name Patient Relationship to Insured Coverage Start Date Coverage End Date [facility] [address] [place] [address] [id number] JESUS MCGUIRE Spouse - patient is the spouse of the insured 2
--- OUTSIDE RECORDS SUMMARY | 2025-04-10 18:40 | XMS_ITS | Clinical Summary ---
Author Organization [employer] Address [address] [place] [address] Care Team Providers Care Tiger Machine Operator Name Role Phone Unavailable Primary [...] morning. Active ergocalciferol (Vitamin D2) 1.25 MG (02712 UT) capsule Take 1 capsule by mouth [...] Description 01/17/2025 1:00 PM EDT Office Visit [facility] [address] [place] [phone] Elma Mcallister from Last 3 Months Social [...] Description 07/19/2025 1:00 PM EDT Office Visit [facility] [address] [place] [address] [phone] Elma Mcallister [address] [place], [place] [phone] Health Maintenance Due Date Last Done Comments [...] Most Recently Relevant to Health Maintenance Insurance [facility] MEDICAID [place] [facility] - [place] PARTIAL (MEDICAID)
== END 2025-04-10 15:52 | disposition home or self-care (01) ==
LOC: HO.MAMMO 15:51
PROVIDERS: PCP Nurse Practitioner Family; Visit Provider Nurse Practitioner Family
DX: Z12.31 Encounter for screening mammogram for malignant neoplasm of breast (principal)
CPT/HCPCS: 77067

== ENCOUNTER → 2025-04-10 16:00 | Outpatient (BNV) | payer OTHER, SELFPAY | PROVIDERS: PCP Nurse Practitioner Family; Visit Provider Internal Medicine | DX: Z12.31 Encounter for screening mammogram for malignant neoplasm of breast (principal) | CPT/HCPCS: 77063; 77067 ==